=== PATIENT | male | born 1940 | race American Indian/Alaskan Native ===

== ENCOUNTER 2017-04-20 09:01 | Emergency (ER) | payer MEDICARE, OTHER ==
[~2017-04-20] VITALS: Ht 167.6 cm; Wt 90.7 kg
[~2017-04-20 09:01] MED LIST: ALBUTEROL SULF8.5 GM INH; ALLOPURINOL100 MG PO; ALLOPURINOL300 MG PO; ATENOLOL25 MG PO; ATENOLOL50 MG PO; AVODART0.5 MG PO; CALCIUM600 MG PO; CEFEPIME-D2 GM/50 ML IV; COLCHICINE0.6 M1 PO; COUMADIN2.5 MG PO; COUMADIN3 MG PO; COUMADIN4 MG PO; COUMADIN5 MG PO; COUMADIN6 MG PO; CYCLOBENZAPRINE10 MG PO; DOCUSATE SODIU100 MG PO; DOXYCYCLINE HY100 MG PO; DULCOLAX10 MG PR; FLEET ENEMA133 ML PR; FLOMAX0.4 MG PO; FUROSEMIDE20 MG PO; FUROSEMIDE40 MG PO; HYDROCODON-ACE1 EA11 PO; HYDROMORPHONE HC4 MG PO; LEVAQUIN500 MG PO; LIDODERM700 MG TOP; LOVENOX100 MG SUB-Q; LOVENOX30 MG SUB-Q; LOVENOX80 MG SUB-Q; LYRICA50 MG PO; OXYCODONE HCL5 MG PO; POTASSIUM CHLO10 ME1 PO; POTASSIUM CHLO20 ME1 PO; PROTONIX40 MG PO; TERBINAFINE15 GM TOP; TRAMADOL HCL50 MG PO; ULTRAM50 MG PO; VANCOMYCIN1.25 GM/25 IV
[2017-04-20] MEDS ORDERED: COUMADIN4 MG PO (09:21)
[2017-04-20] MEDS ORDERED: NORCO 5-325 TA1 EACH PO (11:00)
[2017-05-23] MEDS ORDERED: ATENOLOL25 MG PO (14:04)
== END 2017-04-20 11:16 | disposition home or self-care (01) ==
LOC: ED 09:01
DX: S70.01XA Contusion of right hip, initial encounter (principal); I10 Essential (primary) hypertension; Z95.2 Presence of prosthetic heart valve; Z88.2 Allergy status to sulfonamides; Z88.5 Allergy status to narcotic agent; Z88.8 Allergy status to other drugs, medicaments and biological substances; Z79.899 Other long term (current) drug therapy; Z79.01 Long term (current) use of anticoagulants; W18.30XA Fall on same level, unspecified, initial encounter
CPT/HCPCS: 73502; 99283

== ENCOUNTER 2017-05-30 08:45 | Day surgery (SDC) | payer MEDICARE, OTHER ==
[~2017-05-30] VITALS: Ht 167.6 cm; Wt 89.4 kg
[~2017-05-30 08:45] MED LIST changes: +NORCO 5-325 TA1 EACH PO
--- NOTE | 2017-05-30 11:02 | NUR ---
05/30/17 1102 [address] Colbert ORAL AIRWAY REMOVED. PATIENT TITRATED TO ROOM AIR PATIENT SITTING UP IN BED AND SIPPING WATER.
--- NOTE | 2017-05-30 14:10 | OR ---
[facility] [address], [place] [address] Signed DATE OF PROCEDURE: 05/30/17 PREOPERATIVE DIAGNOSES Personal history of colonic polyps. Diverticulosis. Internal hemorrhoids. POSTOPERATIVE DIAGNOSES A 7-mm polyp at 10 cm. A 5-mm polyp at 8 cm. Moderate sigmoid diverticulosis. Moderate internal hemorrhoids. PROCEDURE: Colonoscopy with hot biopsy. ESTIMATED BLOOD LOSS: None. INDICATIONS Jewel is a 76-year-old gentleman, who came in February 2012 for personal history of colonic polyps. He said that was more than 10 years ago. In 2011, we removed an adenomatous polyp from his mi d right colon. He also has minimal sigmoid diverticulosis along with internal hemorrhoids. In the meantime, he says he is doing great. He has no lower GI complaints. He did get the right knee replaced. He has been using his front wheeled walker. 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 He told me there is no family history of colon cancer or polyps. I met with Jewel in the office and after long discussion, we decided we would go ahead with another colonoscopy. Hopefully, this will be his last one. I gave him a pamphlet on colonoscopy and we discussed the nature of the test along with the risks including but not limited to gas bloating, crampy abdominal pain, bleeding, perforation requiring surgery, and missed diagnosis. We also discussed the need for IV conscious sedation. Given his significant medical history, particularly his heart, we asked that an anesthesia provider help us on this occasion as we did previously. He had expressed understanding and wished to proceed. PROCEDURE NOTE Jewel was taken into our endoscopy suite and placed in the left lateral decubitus position. He was given a preoperative antibiotic. He stopped his Coumadin 4 days ago. He was then placed under IV anesthetic with Propofol per nurse selector packer. A digital rectal exam was performed a nd he does have some induration and swelling to the prostate consistent with his age. After this, the adult colonoscope was introduced and advanced all around into the cecum under direct visualization camera without difficulty. His prep was good. The scope was then slowly withdrawn. We did see has diverticula. They are moderate in size and minimal to moderate in number and scattered about. Once in the Electronically Signed By: QING HUMPHRIES MD 05/30/17 1248 Electronically Signed By: QING HUMPHRIES MD 05/30/17 1424 PATIENT NAME: JEWEL ASHRAF OPERATIVE REPORT DATE OF : 38 PHYSICIAN: QING HUMPHRIES MD REPORT #: [id number] REPORT IS CONFIDENTIAL AND NOT TO BE RELEASED WITHOUT AUTHORIZATION [facility] [address] [place], [place] [address] Signed rectum, he did have 2 small polyps which were removed with the help of hot biopsy forceps. Upon retroflexion of scope, we can also see the minimal to moderate internal hemorrhoid columns. After this, the gas was suctioned out and the colonoscope removed. Jewel tolerated the procedure quite well. RECOMMENDATIONS I will see Jewel back in my office in 7-14 days to review his results. He will hold his Coumadin for 1 week. MD NAY Garcia/Vinh /[id number] cc: Roge Emery MD Electronically Signed By: QING HUMPHRIES MD 05/30/17 1248 Electronically Signed By: QING HUMPHRIES MD 05/30/17 1424 PATIENT NAME: JEWEL ASHRAF OPERATIVE REPORT DATE OF : 38 PHYSICIAN: QING HUMPHRIES MD REPORT #: [id number] REPORT IS CONFIDENTIAL AND NOT TO BE RELEASED WITHOUT AUTHORIZATION
== END 2017-05-30 11:32 | disposition home or self-care (01) ==
LOC: DS 08:45 → OPS 08:45 → DS 09:45
PROVIDERS: Colon & Rectal Surgery
PROC: 0DBP8ZX Excision of Rectum, Via Natural or Artificial Opening Endoscopic, Diagnostic (ICD-10-PCS; principal; 2017-05-30 09:45)
DX: D12.8 Benign neoplasm of rectum (principal); K57.30 Diverticulosis of large intestine without perforation or abscess without bleeding; K64.8 Other hemorrhoids; I11.0 Hypertensive heart disease with heart failure; I50.9 Heart failure, unspecified; I48.91 Unspecified atrial fibrillation; J45.909 Unspecified asthma, uncomplicated; E78.5 Hyperlipidemia, unspecified; N40.0 Benign prostatic hyperplasia without lower urinary tract symptoms; M10.9 Gout, unspecified; M19.90 Unspecified osteoarthritis, unspecified site; M86.9 Osteomyelitis, unspecified; Z95.2 Presence of prosthetic heart valve; Z86.010 Personal history of colon polyps; Z96.651 Presence of right artificial knee joint; Z87.891 Personal history of nicotine dependence; Z79.01 Long term (current) use of anticoagulants; Z79.899 Other long term (current) drug therapy; Z88.5 Allergy status to narcotic agent
CPT/HCPCS: 00810; 88305; J2704; J7120

== ENCOUNTER 2017-08-21 12:22 | Emergency (ER) | payer MEDICARE, OTHER ==
[~2017-08-21] VITALS: Ht 167.6 cm; Wt 89.4 kg
--- NOTE | 2017-08-22 07:18 | EKG ---
[facility] [address] [facility] [place] [address] Signed Normal sinus rhythm Normal ECG When compared with ECG of 02-DEC-2016 08:16, T wave amplitude has increased in Anterior leads Confirmed by NELLIE LICONA MD ([id number]) on 08/22/2017 7:17:50 AM Electronically Signed By: NELLIE LICONA MD 08/22/17 0718 PATIENT NAME: JEWEL ASHRAF Electrocardiogram DATE OF : 38 PHYSICIAN: NELLIE LICONA MD REPORT #: [id number] REPORT IS CONFIDENTIAL AND NOT TO BE RELEASED WITHOUT AUTHORIZATION
== END 2017-08-21 15:20 | disposition home or self-care (01) ==
LOC: ED 12:22
DX: R07.89 Other chest pain (principal); R06.02 Shortness of breath; I10 Essential (primary) hypertension; Z95.2 Presence of prosthetic heart valve; Z88.5 Allergy status to narcotic agent; Z88.2 Allergy status to sulfonamides; Z88.8 Allergy status to other drugs, medicaments and biological substances; Z79.899 Other long term (current) drug therapy; Z79.01 Long term (current) use of anticoagulants
CPT/HCPCS: 71010; 80053; 84484; 85025; 85610; 85730; 93005; 93010; 99284

== ENCOUNTER 2018-04-25 14:06 | Inpatient (IN) | payer MEDICARE, OTHER ==
[~2018-04-25] VITALS: Ht 167.6 cm; Wt 89.4 kg
[2018-04-25] MEDS ORDERED: METOPROLOL SUCC50 MG PO (17:10)
[2018-04-25] MEDS ORDERED: ENTRESTO 24 MG1 EACH PO (17:10)
[2018-04-25] MEDS ORDERED: CYCLOBENZAPRINE10 MG PO (17:12)
--- NOTE | 2018-04-25 19:22 | NUR ---
PATIENT HAD DARK COLORED URINE. RN NOTIFIED.
--- NOTE | 2018-04-25 19:45 | NUR ---
PT BEGAN TO BECOME INCREASINGLY TACHYPNIC FOLLOWING ARRIVAL ON UNIT. PT ON 4 L NASAL CANNULA, INCREASED TO 30L 50%FIO2 ON VAPOTHERM. PT INCREASING HEMOPTYSIS. MD INFORMED OF CHANGE IN PT STATUS. MD ARRIVED ON UNIT 3 MINUTES AFTER PHONE CALL. PT WITH INCREASING SHORTNESS OF BREATH, INCREASING TACHYPNEA, INCREASING HEMOPTYSIS. PT REPORTED FEELING UNABLE TO BREATHE. MD DISCUSSED INTUBATION WITH FAMILY AND PT, PT IN AGREEMENT. PT PLACED ON BIPAP FIO2 50%. PT INCREASING SHORTNESS OF BREATH. HOSPITAL [facility]SILE TESTER NOTIFIED OF MD PLAN OF INTUBATION AND TRANSFER. DR TONG AND DR WILKINS ON THE UNIT AT THIS TIME.
--- NOTE | 2018-04-25 21:06 | NUR ---
RECEIVED REPORT FROM DAY SHIFT RN REGARDING PATIENT'S DECLINE IN RESPIRATORY STATUS WITH PATIENT'S INCREASED WORK OF BREATHING DESPITE BIPAP THERAPY AND ELEVATED HEART RATE. AT 1933, DR. WILKINS AND SOCIAL SCIENTIST CARLA ASHRAF IN ROOM TO ASSESS PATIENT AND UPDATE FAMILY ABOUT PLAN OF CARE FOR TRANSFER TO [facility]. 1944 ETT PLACED 8 1/2 TUBE, 21 CM AT THE LIP, BREATH SOUNDS EQUAL BILATERALLY. 2011 XRAY TO ROOM TO COMFIRM TUBE PLACEMENT. HE CATHETER PLACED AT [address] WILKINS, ASSISTED BY THIS RN TO MAINTAIN STERILE FIELD. 2002 [facility] NOTIFIED OF NEED TO TRANSFER PATIENT. 2044 [facility] IN ROOM TO TRANSFER PATIENT, PATIENT SWITCHED TO [facility] VENTILATOR AND IV PUMPS. 2054 PATIENT LEAVES FACILITY WITH [facility] TEAM AND RN FROM CCU. 2110 REPORT CALLED TO NURSE TAKING OVER PATIENT AT [facility].
--- NOTE | 2018-04-27 14:37 | EKG ---
[facility] [address] [facility] [place] [address] Signed Atrial fibrillation with rapid ventricular response Nonspecific ST and T wave abnormality Abnormal ECG When compared with ECG of 21-AUG-2017 12:28, Atrial fibrillation has replaced Sinus rhythm Vent. rate has increased BY 51 BPM Confirmed by CHARLA MOTT DO ([id number]) on 04/27/2018 2:37:18 PM Electronically Signed By: CHARLA MOTT DO 04/27/18 1437 PATIENT NAME: JEWEL ASHRAF Electrocardiogram DATE OF : 38 PHYSICIAN: CHARLA MOTT DO REPORT #: [id number] REPORT IS CONFIDENTIAL AND NOT TO BE RELEASED WITHOUT AUTHORIZATION
== END 2018-04-25 20:50 | disposition short-term general hospital (02) | DRG 871 ==
LOC: ED 14:06 → CCU 16:31
PROVIDERS: ADMIT Student in an Organized Health Care Education/Training Program
PROC: 0BH17EZ Insertion of Endotracheal Airway into Trachea, Via Natural or Artificial Opening (ICD-10-PCS; principal; 2018-04-25)
PROC: 5A1935Z Respiratory Ventilation, Less than 24 Consecutive Hours (ICD-10-PCS; 2018-04-25)
PROC: 3E033XZ Introduction of Vasopressor into Peripheral Vein, Percutaneous Approach (ICD-10-PCS; 2018-04-25)
PROC: 5A09357 Assistance with Respiratory Ventilation, Less than 24 Consecutive Hours, Continuous Positive Airway Pressure (ICD-10-PCS; 2018-04-25)
DX: A41.9 Sepsis, unspecified organism (principal); J18.9 Pneumonia, unspecified organism; J96.91 Respiratory failure, unspecified with hypoxia; G93.41 Metabolic encephalopathy; R04.2 Hemoptysis; I50.22 Chronic systolic (congestive) heart failure; N40.0 Benign prostatic hyperplasia without lower urinary tract symptoms; I48.0 Paroxysmal atrial fibrillation; M54.9 Dorsalgia, unspecified; G89.4 Chronic pain syndrome; Z95.2 Presence of prosthetic heart valve; Z79.01 Long term (current) use of anticoagulants; Z79.891 Long term (current) use of opiate analgesic; Z79.899 Other long term (current) drug therapy; Z88.3 Allergy status to other anti-infective agents; Z88.5 Allergy status to narcotic agent; Z88.2 Allergy status to sulfonamides; Z88.8 Allergy status to other drugs, medicaments and biological substances
CPT/HCPCS: 31500; 31720; 36415; 36600; 51701; 71045; 71260; 80053; 81001; 82803; 83605; 83880; 84484; 85025; 85610; 86713; 87040; 87077; 87184; 87449; 87899; 93005; 93010; 94002; 94660; 94668; 94799; 96361; 96365; 96375; 99285; J0456; J0696; J2250; J2370; J7030; Q9967

== ENCOUNTER 2018-12-20 12:39 | Emergency (ER) | payer MEDICARE ==
[~2018-12-20] VITALS: Ht 167.6 cm; Wt 89.4 kg
--- OUTSIDE RECORDS SUMMARY | ~2018-12-20 | XMS | Clinical Summary ---
Demographics + + + | Address | [address] | | | [place] [address] | + + + | Home Phone | | + + + | Preferred Language | Unknown | + + + | Marital Status | | + + + | Christianity Affiliation | 1025 | + + + | Race | Unknown | + + + | Ethnic Group | Unknown | + + + Author + + + | Author | [facility] | | | and [place] | + + + | Organization | [facility] | | | and [place] | + + + | Address | Unknown | + + + | Phone | Unavailable | + + + Support + + +---------+ + | Name | Relationship | Address | Phone | + + +---------+ + | Brown,Supriya | ECON | Unknown | | + + +---------+ + | Leonor Lara | ECON | Unknown | | + + +---------+ + | Laurel Lara | ECON | Unknown | | + + +---------+ + Care Team Providers + +------+ + | Care Roller Staker Name | Role | Phone | + +------+ + | Roge Emery DO | PP | | + +------+ + Allergies + + + + + + | Active Allergy | Reactions | Severity | Noted | Comments | | | | | Date | | + + + + + + | Acetaminophen | Nausea Only | | 04/24/20 | | | | | | 13 | | + + + + + + | Codeine | Other (See Comments) | | 05/16/20 | Reaction not | | | | | 17 | specified in outside | | | | | | medical records | + + + + + + | Hydrocodone | Other (See Comments) | | 05/16/20 | Dyspnea | | | | | 17 | | + + + + + + | Ibuprofen | Hives | | 04/24/20 | | | | | | 13 | | + + + + + + | Oxycodone | Other (See Comments) | | 04/24/20 | Reaction not | | | | | 13 | specified in outside | | | | | | medical records | + + + + + + | Prednisone | Other (See Comments) | | 04/24/20 | Reaction not | | | | | 13 | specified in outside | | | | | | medical records | + + + + + + | Quinine | Rash | Medium | 04/25/20 | | | | | | 10 | | + + + + + + | Sulfa Antibiotics | Other (See Comments) | | 04/24/20 | Confusion | | | | | 13 | | + + + + + + | Trimethoprim | Other (See Comments) | | 05/16/20 | Reaction not | | | | | 17 | specified in outside | | | | | | medical records | + + + + + + Current Medications + + +-------+---------+------+------+-------+ | Prescription | Sig. | Disp. | Refills | Star | End | Statu | | | | | | t | Date | s | | | | | | Date | | | + + +-------+---------+------+------+-------+ | cyclobenzaprine | Take 10 mg by mouth | | | | | Activ | | (FLEXERIL) 10 mg | nightly. | | | | | e | | tablet | | | | | | | + + +-------+---------+------+------+-------+ | docusate sodium | Take 100 mg by mouth | | | | | Activ | | (COLACE) 100 mg | 2 times daily. | | | | | e | | capsule | | | | | | | + + +-------+---------+------+------+-------+ | furosemide (LASIX) | Take 40 mg by mouth | | | | | Activ | | 40 mg tablet | Daily. | | | | | e | + + +-------+---------+------+------+-------+ | potassium chloride | Take 20 mEq by mouth | | | | | Activ | | SA (K-DUR,KLOR-CON) | 2 times daily. | | | | | e | | 10 MEQ tablet | | | | | | | + + +-------+---------+------+------+-------+ | pregabalin | Take 50 mg by mouth | | | | | Activ | | (LYRICA) 50 MG | 2 times daily. | | | | | e | | capsule | | | | | | | + + +-------+---------+------+------+-------+ | atenolol | Take 50 mg by mouth | | | / | | Activ | | (TENORMIN) 50 mg | every morning. | | | 02/03 | | e | | tablet | | | | 15 | | | + + +-------+---------+------+------+-------+ | atenolol | Take 25 mg by mouth | | | | | Activ | | (TENORMIN) 25 mg | nightly. | | | | | e | | tablet | | | | | | | + + +-------+---------+------+------+-------+ | allopurinol | Take 200 mg by mouth | | | | | Activ | | (ZYLOPRIM) 100 mg | Daily. | | | | | e | | tablet | | | | | | | + + +-------+---------+------+------+-------+ | warfarin | Take 4.5 mg by mouth | | | | | Activ | | (COUMADIN) 2.5 mg | Daily. Patient | | | | | e | | tablet | states taking approx | | | | | | | | 2 tablets evening | | | | | | + + +-------+---------+------+------+-------+ | traMADol (ULTRAM) | Take 50 mg by mouth | | | | | Activ | | 50 mg tablet | every 6 hours as | | | | | e | | | needed. | | | | | | + + +-------+---------+------+------+-------+ | dutasteride | Take 1 mg by mouth | | | | | Activ | | (AVODART) 0.5 mg | Daily. 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/2011 | + + + | KNEE PAIN | 05/29/2011 | + + + | GOUT | | + + + | HERPES ZOSTER | | + + + | GREATER TROCHANTERIC BURSITIS | | + + + | SPINAL STENOSIS | | + + + | MITRAL VALVE DISORDER | | + + + Family History + + +------+ + | Medical History | Relation | Name | Comments | + + +------+ + | No known problems | Child | | | + + +------+ + | Diabetes | Daughter | | | + + +------+ + | High cholesterol | Daughter | | | + + +------+ + | Early | Father | | MVA | + + +------+ + | No known problems | Maternal | | | | | Grandfath | | | | | er | | | + + +------+ + | No known problems | Maternal | | | | | Grandmoth | | | | | er | | | + + +------+ + | Arthritis | Mother | | | + + +------+ + | No known problems | Paternal | | | | | Grandfath | | | | | er | | | + + +------+ + | No known problems | Paternal | | | | | Grandmoth | | | | | er | | | + + +------+ + | Arthritis | Sister | | | + + +------+ + | Diabetes | Son | | | + + +------+ + | High cholesterol | Son | | | + + +------+ + + +------+ + + | Relation | Name | Status | Comments | + +------+ + + | Child | | | | + +------+ + + | Daughter | | Alive | | + +------+ + + | Father | | | MVA | | | | (Age | | | | | 52) | | + +------+ + + | Maternal Grandfather | | | | + +------+ + + | Maternal Grandmother | | | | + +------+ + + | Mother | | | | | | | (Age | | | | | 102) | | + +------+ + + | Paternal Grandfather | | | | + +------+ + + | Paternal Grandmother | | | | + +------+ + + | Sister | | | Arthritis | | | | (Age | | | | | 48) | | + +------+ + + | Son | | Alive | | + +------+ + + Social History + + + +--------+ + | Tobacco Use | Types | Packs/Day | Years | Date | | | | | Used | | + + + +--------+ + | Former Smoker | Cigarettes | 1 | 10 | 09/17/1957 - | | | | | | 09/17/1967 | + + + +--------+ + + +---+---+---+ | Smokeless Tobacco: | | | | | Never Used | | | | + +---+---+---+ + + +---------+ + | Alcohol Use | Drinks/We | oz/Week | Comments | | | ek | | | + + +---------+ + | No | | | Recovering alcoholic | + + +---------+ + + + + | Sex Assigned at | Date Recorded | | | | + + + | Not on file | | + + + Last Filed Vital Signs + + + + | Vital Sign | Reading | Time Taken | + + + + | Blood Pressure | 132/86 | 05/24/2017801 PDT | + + + + | Pulse | 75 | 05/24/2017801 PDT | + + + + | Temperature | - | - | + + + + | Respiratory Rate | - | - | + + + + | Oxygen Saturation | - | - | + + + + | Inhaled Oxygen | - | - | | Concentration | | | + + + + | Weight | 90.6 kg (199 lb 12.8 | 05/24/2017801 PDT | | | oz) | | + + + + | Height | 167.6 cm (5' 6") | 05/24/2017801 PDT | + + + + | Body Mass Index | 32.25 | 05/24/2017801 PDT | + + + + Plan of Treatment + + + + + | Health Maintenance | Due Date | Last Done | Comments | + + + + + | Vaccine: | | | | | Dtap/Tdap/Td (1 - | 9 | | | | Tdap) | | | | + + + + + | Vaccine: Zoster (1 | | | | | of 2) | 0 | | | + + + + + | Vaccine: | | | | | Pneumococcal 65+ | 5 | | | | Low/Medium Risk (1 | | | | | of 2 - PCV13) | | | | + + + + + | Adult Annual | | | | | Wellness Visit | 5 | | | + + + + + | Vaccine: Influenza | | | | | (Season Ended) | 9 | | | + + + + + Results Not on filefrom Last 3 Months Insurance + +--------+ +--------+ +---------+ | Payer | Benefi | Subscriber | Type | Phone | Address | | | t Plan | ID | | | | | | / | | | | | | | Group | | | | | + +--------+ +--------+ +---------+ | MEDICARE | MEDICA | [id number] | Medica | [phone] | | | RE | | re | [phone] | | | | PART A | | | | | | | AND B | | | | | + +--------+ +--------+ +---------+ | [facility] | IHS | [id number] | Indemn | | | | SERVICE | YELLOW | | ity | | | | | [place] | | | | | + +--------+ +--------+ +---------+ + +--------+ +--------+ + + | Guarantor Name | Accoun | Relation to | Date | Phone | Billing Address | | | t Type | Patient | of | | | | | | | | | | + +--------+ +--------+ + + | JEWEL LARA | Person | Self [birth year] Home: | [address] | | | [place] | | [phone] | [phone] | [place] | | | [place] | | | [phone] | [phone] | + +--------+ +--------+ + +
--- OUTSIDE RECORDS SUMMARY | ~2018-12-20 | XMS | Encounter Summary ---
Demographics + + + | Address | [address] | | | [place] [address] | + + + | Home Phone | | + + + | Preferred Language | Unknown | + + + | Marital Status | | + + + | Taoist Affiliation | [id number] | + + + | Race | Unknown | + + + | Ethnic Group | Unknown | + + + Author + + + | Author | [facility] | + + + | Organization | [facility] | + + + | Address | Unknown | + + + | Phone | Unavailable | + + + Support + + +---------+ + | Name | Relationship | Address | Phone | + + +---------+ + | Leonor Lara | ECON | Unknown | | + + +---------+ + | Laurel Lara | ECON | Unknown | | + + +---------+ + | Luigi Cardona | ECON | Unknown | | + + +---------+ + Care Team Providers + +------+ + | Care Administrative Judge Name | Role | Phone | + +------+ + | Roge Emery MD | PCP | | + +------+ + Reason for Visit + + + | Reason | Comments | + + + | Follow-up | risk assessment | + + + Routine Exam (Urgent) +--------+--------+ + + + + | Status | Reason | Specialty | Diagnoses / | Referred By | Referred To | | | | | Procedures | Contact | Contact | +--------+--------+ + + + + | Closed | | Cardiology | Diagnoses | [place], | Tina, | | | | | surgical | MD Roge | MD Maryam | | | | | clearance | [id number] | [address] | | | | | hernia | [place] | Dr Leyva | | | | | repair | Way | [place] MD | | | | | Procedures | [place], | [address] Phone: | | | | | Routine | [place] [address] | [phone] | | | | | | Phone: | Fax: | | | | | | [phone] | [phone] | | | | | | Fax: | | | | | | | [phone] | | +--------+--------+ + + + + Encounter Details +--------+---------+ + + + | Date | Type | Department | Care Team | Description | +--------+---------+ + + + | 10/23/ | Office | [facility] | Maryam Caal, | S/P MVR (mitral | | 2019 | Visit | Cardiology [place] | [address] | valve repair) | | | | [address] | Dr Hendrickson, | (Primary Dx); | | | | [address] | [place] [address] | Non-ischemic | | | | [place] [address] | [phone] | cardiomyopathy | | | | [phone] | | (HCC); Incarcerated | | | | | | right inguinal | | | | | | hernia; nursing home | | | | | | (current) use of | | | | | | anticoagulants; | | | | | | Persistent atrial | | | | | | fibrillation ([facility]) | +--------+---------+ + + + Social History + + + +--------+ + | Tobacco Use | Types | Packs/Day | Years | Date | | | | | Used | | + + + +--------+ + | Former Smoker | Cigarettes | | 5 | Quit: 09/17/1962 | + + + +--------+ + + +---+---+---+ | Smokeless Tobacco: | | | | | Never Used | | | | + +---+---+---+ + + +---------+ + | Alcohol Use | Drinks/We | oz/Week | Comments | | | ek | | | + + +---------+ + | No | 0 | 0.0 | | | | Standard | | | | | drinks or | | | | | | | | | | equivalen | | | | | t | | | + + +---------+ + + + + | Sex Assigned at | Date Recorded | | | | + + + | Not on file | | + + + as of this encounter Last Filed Vital Signs + + + + | Vital Sign | Reading | Time Taken | + + + + | Blood Pressure | 136/74 | 10/23/2018 11:57 AM PST | + + + + | Pulse | 80 | 10/23/2018 11:57 AM PST | + + + + | Temperature | - | - | + + + + | Respiratory Rate | - | - | + + + + | Oxygen Saturation | 97% | 10/23/2018 11:57 AM PST | + + + + | Inhaled Oxygen | - | - | | Concentration | | | + + + + | Weight | 85 kg (187 lb 8 oz) | 10/23/2018 11:57 AM PST | + + + + | Height | 172.7 cm (5' 8") | 10/23/2018 11:57 AM PST | + + + + | Body Mass Index | 28.51 | 10/23/2018 11:57 AM PST | + + + + in this encounter Progress Notes Maryam Caal MD - 10/23/2018 11:45 AM PSTFormatting of this note may be different fro m the original. Date of visit: 10/23/2018 Primary Care Physician: ROGE EMERY CHIEF COMPLAINT: Chief Complaint Patient presents with Follow-up risk assessment HISTORY OF PRESENT ILLNESS: Juvenal is 78 y.o. here for follow-up visit. Was hospitalized in April of 2018 due to septic shock due bacterial pneumonia. Currently back to his baseline, denies any chest pain or shortness of breath. Weight is sta ble. Continues to be on Carvedilol and Sacubitril/Valsartan 24/26 mg bid. Was diagnosed with incarcerated right inguinal hernia and has been in pain. 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 Left heart catheterization showed no epicardial obstructive coronary lesions in December 2017. Overall limited activity level due to right knee replacement. Continues to have chronic kne e pain. He is using a walker to ambulate at this time. Still complains of pain and swelling in the right knee. Complaint with his medication. Past medical history, SH, FH, and medications were reviewed in the chart. Medications: Outpatient Encounter Prescriptions as of 10/23/2018 Medication Sig Dispense Refill allopurinol (ZYLOPRIM) 100 MG tablet Take 200 mg by mouth daily. carvedilol (COREG) 6.25 MG tablet Take 1 tablet by mouth 2 (two) times daily with meals . 60 tablet 0 docusate sodium (COLACE) 100 MG capsule Take 100 mg by mouth 2 (two) times daily. dutasteride (AVODART) 0.5 MG capsule Take 0.5 mg by mouth 2 (two) times daily. furosemide (LASIX) 40 MG tablet Take 40 mg by mouth daily. melatonin 3 MG TABS Take 6 mg by mouth nightly. Multiple Vitamins-Minerals (MULTIVITAMIN ADULTS PO) Take 1 tablet by mouth daily. potassium chloride (K-DUR,KLOR-CON) 20 MEQ tablet Take 2 tablets by mouth daily with br eakfast. 60 tablet 0 pregabalin (LYRICA) 50 MG capsule Take 1 capsule by mouth 2 (two) times daily for 30 da ys. 60 capsule 0 sacubitril-valsartan (ENTRESTO) 24-26 MG per tablet Take 1 tablet by mouth 2 (two) time s daily. 60 tablet 2 traMADol (ULTRAM) 50 MG tablet Take 1 tablet by mouth every 6 (six) hours as needed for Pain. 30 tablet 0 warfarin (COUMADIN) 4 MG tablet Take 8 mg by mouth nightly. QUEtiapine (SEROQUEL) 50 MG tablet Take 1 tablet by mouth nightly for 30 days. (Patient not taking: Reported on 10/23/2018) 14 tablet 0 No facility-administered encounter medications on file as of 10/23/2018. Allergies Allergies Allergen Reactions Ibuprofen Hives Quinine Hives Trimethoprim Hives Codeine Nausea and Vomiting Hydrocodone Other (See Comments) Dyspnea Oxycodone Other (See Comments) Nausea,vomiting, dizziness Prednisone Nausea and Vomiting Sulfa Antibiotics Other (See Comments) Confusion Acetaminophen Nausea Only REVIEW OF SYSTEMS: Constitutional: Mild fatigue. HEENT: Negative for nosebleeds, ear discharge, nasal congestion or soar throat. Eyes: Negative for visual disturbance, redness, or secretion. Respiratory: Negative for cough, sputum production, hemoptysis, positive for wheezing. Cardiovascular: As history of present illness. Gastrointestinal: Negative for nausea, vomiting, diarrhea, abdominal pain and blood in stoo l. Genitourinary: right inguinal hernia. Negative for dysuria or hematuria. Musculoskeletal: Severe right knee pain. Uses a walker to ambulate. Skin: Negative for rash. Neurological: Negative for dizziness. No numbness. No recent falls. No slurred speech. Hematological: No significant bruising. Psychiatric/Behavioral: No depression or anxiety. PHYSICAL EXAM Vital Signs: BP 136/74 (BP Location: Left upper arm, Patient Position: Sitting) | Pulse 80 | Ht 1.727 m (5' 8") | Wt 85 kg (187 lb 8 oz) | SpO2 97% | BMI 28.51 kg/m GENERAL APPEARANCE: Alert, oriented, cooperative, no distress, appears stated age. HEENT: Extraocular movements were intact. No jaundice. Pupiles round and reactive. NECK: No JVD, lymphadenopathy. Carotid upstrokes normal. No carotid bruit heard. CARDIAC: Irregular irregular with variable S1-S2. CHEST: Normal bilateral symmetrical chest excursion.ackles or wheezing. No evidence of dull ness. ABDOMEN: right inguinal hernia. Active bowel sounds. EXTREMITIES: Trace LE edema, cyanosis or clubbing. NEURO: Alert and oriented times three with no focal deficit. Cranial nerves are grossly no rmal. SKIN: Warm and dry. No rash. Psych: Normal affect and mood. DATA Lab Results Component Value Date/Time NA 145 05/09/2018 05:07 AM NA 149 (H) 05/08/2018 06:02 AM NA 150 (H) 05/07/2018 03:50 AM K 3.3 (L) 05/09/2018 05:07 AM K 3.4 (L) 05/08/2018 06:02 AM K 4.0 05/07/2018 03:50 AM CO2 27 05/09/2018 05:07 AM CO2 29 05/08/2018 06:02 AM CO2 30 05/07/2018 03:50 AM BUN 36 (H) 05/09/2018 05:07 AM BUN 42 (H) 05/08/2018 06:02 AM BUN 48 (H) 05/07/2018 03:50 AM CREATININE 1.1 05/09/2018 05:07 AM CREATININE 1.1 05/08/2018 06:02 AM CREATININE 1.4 (H) 05/07/2018 03:50 AM MG 2.3 05/08/2018 06:02 AM MG 2.3 05/07/2018 03:50 AM MG 2.4 05/06/2018 08:55 PM Lab Results Component Value Date/Time WBC 8.92 05/08/2018 06:02 AM WBC 11.64 (H) 05/07/2018 03:50 AM WBC 16.54 (H) 05/06/2018 04:23 AM HGB 13.6 05/08/2018 06:02 AM HGB 13.8 05/07/2018 03:50 AM HGB 14.3 05/06/2018 04:23 AM HCT 40.7 05/08/2018 06:02 AM HCT 41.9 05/07/2018 03:50 AM HCT 44.0 05/06/2018 04:23 AM MCV 97.4 05/08/2018 06:02 AM MCV 98.0 05/07/2018 03:50 AM MCV 98.1 05/06/2018 04:23 AM PLT 208 05/08/2018 06:02 AM PLT 198 05/07/2018 03:50 AM PLT 194 05/06/2018 04:23 AM Lab Results Component Value Date CHOL 152 05/13/2013 TRIG 136 05/13/2013 HDL 46.1 05/13/2013 LDL 79 05/13/2013 GLUF 88 05/09/2018 GLUF 105 (H) 05/08/2018 HGBA1C 6.4 (H) 05/02/2018 TSH 3.14 05/13/2013 Last Cath, 12/20/2017 1. Non ischemic cardiomyopathy. 2. No significant coronary artery disease. 3. Slow flow phenomenon in the 3 coronaries. 4. Right subclavian artery loop. 03/01/2006: No significant CAD, severe MR, mild Pulmonary HTN. CABG 2005: MVR. Hx endocarditis (2003), MVR (27mm porcine Moran II ) 2005, Last Echo, 04/29/2018 Reported with severely impaired systolic function, EF 25-30%. Bioprosthetic mitral valve. Moderately dilated RV with moderately impaired systolic function. Mild TR with severe pulmonary hypertension RVSP 66 mmHg. 11/15/2017 Normal LV size, with thickness and moderately impaired systolic function EF 35-40%. Hypokin esis of the anterior septal and inferior segments. RV is moderately enlarged with moderately bit function. Bioprosthetic mitral valve with acc eptable mean gradient of 6. Tricuspid regurgitation with mild pulmonary hypertension RVSP 48 mmHg. 02/09/2015 ([facility]): MVR, stable, 10mmHg mean gradient, trace MR, LVEF 60%, severe LAE, moderate BOB, RV enlarge d, moderate BOB, trace AI, moderate TR, moderate PI, est systolic PAP 48-53mmHg, mild Pulmon juan HTN. Last Stess Test, 03/08/2011: 3:48min Pal, no chest pain, no ischemia detected, occ PVC's noted. ECG, 05/06/2018 Reviewed by myself showed atrial fibrillation with rapid ventricular response. ASSESSMENT: Patient is 78 y.o. with the following medical problems. 1. Nonischemic cardiomyopathy. NYH class II-III, stage C. 2. 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 No signs of congestive heart failure. 3. Hypertension blood pressure is controlled. 4. Incarcerated inguinal hernia. 5. Persistent atrial fibrillation, in atrial fibrillation today, CHADSVASc score of 5 on an ticoagulation. 6. History of TIA in the past. 7. Status post right knee replacement and fall on the same knee. 8. Obesity. Plan: Reviewed hospital records. Currently no signs of congestive heart failure. In atrial fibrillation however rate is cont rolled. Will continue with anticoagulation. Needs antibiotics prophylaxis prior to surgery due to history of endocarditis and mitral va lve replacement. Continue with carvedilol 6.25 mg bid. Increase Sacubitril/Valsartan to 49/51 mg bid. Patient is scheduled for moderate risk inguinal hernia surgery, patient risk is moderate ho wever not prohibitive. Warfarin can be held for 5 days prior to surgery and restart the day after. Follow up in 3 months or sooner if needed. *This report has been prepared using a voice recognition system. The report was reviewed fo r accuracy, however, sound-alike word errors, addition and/or deletions may occur. If there is any question about this report please contact me. Maryam Caal MD, MPHin this encounter Plan of Treatment +--------+---------+ + + + | Date | Type | Specialty | Care Team | Description | +--------+---------+ + + + | 01/22/ | Office | Cardiology | Maryam Caal, | | | 2018 | Visit | | MD Jolanta Contreras | | | | | | Dr Hendrickson, | | | | | | [place] [address] | | | | | | [phone] | | | | | | | | +--------+---------+ + + + as of this encounter Results ECHO outside interpretation standard (12/10/2018 4:34 PM) + + + | Impressions | Performed At | + + + | 1. The left ventricle is normal in size, wall thicknesss and | [facility] | | moderately impaired systolic function EF 35-40%. 2. The right | RADIOLOGY | | ventricle is severely enlarged with moderately impaired systolic | | | function. 3. Bioprosthetic MVR is well seated, elevated mean gradient | | | of 8 mmHg. 4. Moderate tricuspid regurgitation and mild pulmnary | | | hypertension RVSP 48 mmHg. 5. There is no pericardial effusion. | | + + + + + + | Narrative | Performed At | + + + | Patient Name: Juvenal Lara Date of : 1940 | [facility] | | Performing Physician: Maryam Caal | RADIOLOGY | | | | | INDICATIONS Hx of MVR CONCLUSIONS 1. | | | The left ventricle is normal in size, wall thicknesss and moderately | | | impaired systolic function EF 35-40%. 2. The right ventricle is | | | severely enlarged with moderately impaired systolic function. 3. | | | Bioprosthetic MVR is well seated, elevated mean gradient of 8 mmHg. | | | 4. Moderate tricuspid regurgitation and mild pulmnary hypertension | | | RVSP 48 mmHg. 5. There is no pericardial effusion. FINDINGS | | | -------- ECG rhythm: Atrial fibrillation. Study: A 2-dimensional | | | transthoracic echocardiogram with m-mode, spectral and color flow | | | Doppler was perfomed. Study: This was a technically adequate study. | | | Left Ventricle: Overall left ventricular systolic function is | | | moderately impaired with, an EF between 35 - 40 %. Left Ventricle: | | | The left ventricle cavity size is normal. Left Ventricle: Left | | | ventricular wall thickness is normal. Left Ventricle: There is | | | moderate global hypokinesis of LV contractility. Left Ventricle: | | | There is paradoxical/dysynergic septal motion consistent with | | | post-operative status. Right Ventricle: The right ventricle is | | | severely enlarged. Right Ventricle: The right ventricular systolic | | | function is moderately impaired. Left Atrium: The left atrium is | | | markedly enlarged. Right Atrium: The right atrium is moderately | | | enlarged. Aortic Valve: The aortic valve appears to be trileaflet. | | | Aortic Valve: Trace amount of aortic regurgitation. Aortic Valve: | | | There is no evidence of aortic stenosis. Aortic Valve: Aortic valve | | | is mildly thickened. Mitral Valve: There is trace mitral | | | regurgitation. Mitral Valve: Bioprosthetic MVR is well seated. | | | Tricuspid Valve: The tricuspid valve appears structurally normal. | | | Tricuspid Valve: Moderate tricuspid regurgitation present. Tricuspid | | | Valve: There is moderate pulmonary hypertension. Tricuspid Valve: | | | The right ventricular systolic pressure (pulmonary artery systolic | | | pressure), as measured by Doppler, is 48.36mmHg. Pulmonic Valve: The | | | pulmonic valve was not well visualized. Pulmonic Valve: Moderate | | | pulmonic regurgitation. Pericardium: There is no pericardial | | | effusion. Pericardium: No pleural effusion seen. IVC/Hepatic Veins: | | | The IVC is normal size (1.5-2.5cm) and collapses <50% with sniff, | | | consistent with central venous pressures of 10-15mmHg. Aorta: The | | | aortic root, ascending aorta and aortic arch are normal. | | | MEASUREMENTS Ao asc: 3.35 cm Ao Diam: 3.56 cm | | | Ao sinus: 3.[address] junct: 3.53 cm IVC: 2.49 cm | | | LA Major: 7.09 cm EDV(Teich): 90.36 ml IVSd: 1.12 cm | | | LVIDd: 4.45 cm LVPWd: 0.84 cm LVOT Diam: 2.52 cm | | | %FS: 18.14 % EF(Teich): 37.83 % ESV(Teich): 56.17 ml | | | LVIDs: 3.64 cm SV(Teich): 34.18 ml RA Major: 6.00 cm RV | | | Major: 8.13 cm RV Minor: 5.00 cm RVIDd: 4.30 cm LVEF | | | MOD A2C: 38.30 % SV MOD A2C: 30.35 ml LVEF MOD A4C: | | | 44.62 % SV MOD A4C: 35.03 ml EF Biplane: 39.48 % LVEDV MOD | | | BP: 78.11 ml LVESV MOD BP: 47.27 ml LVEDV MOD A2C: 79.24 | | | ml LVLd A2C: 7.99 cm LVEDV MOD A4C: 78.51 ml LVLd A4C: | | | 8.03 cm LVESV MOD A2C: 48.89 ml LVLs A2C: 7.45 cm LVESV | | | MOD A4C: 43.47 ml LVLs A4C: 7.06 cm LAESV(A-L): 150.73 | | | ml LAESV Index (A-L): 77.69 ml/m2 LAAs A2C: 34.70 cm2 LAESV | | | A-L A2C: 141.98 ml LAESV MOD A2C: 138.71 ml LALs A2C: | | | 7.20 cm LAAs A4C: 36.56 cm2 LAESV A-L A4C: 158.79 ml LAESV | | | MOD A4C: 157.49 ml LALs A4C: 7.14 cm RAAs: 25.93 cm2 | | | RAESV A-L: 88.67 ml RAESV MOD: 88.89 ml RALs: 6.43 cm | | | TAPSE: 1.34 cm AV Env.Ti: 265.67 ms AV maxP.20 mmHg | | | AV meanP.12 mmHg AV Vmax: 1.02 m/s AV Vmean: 0.67 | | | m/s AV VTI: 17.96 cm DONOVAN Vmax: 3.49 cm2 DONOVAN (VTI): 3.62 | | | cm2 AVAI Vmax: 0.00 cm2/m2 AVAI (VTI): 0.00 cm2/m2 LVOT | | | Env.Ti: 265.67 ms LVOT maxP.04 mmHg LVOT meanPG: | | | 1.12 mmHg LVSI Dopp: 33.61 ml/m2 LVSV Dopp: 65.21 ml LVOT | | | Vmax: 0.71 m/s LVOT Vmean: 0.48 m/s LVOT VTI: 13.01 cm | | | MV E Yfn: 1.71 m/s E' Lat: 0.09 m/s MV maxP.01 mmHg | | | MV meanP.01 mmHg MV Vmax: 1.73 m/s MV Vmean: 1.03 | | | m/s MV VTI: 48.36 cm MVA (VTI): 1.34 cm2 RAP: 15 mmHg | | | RV S': 0.10 m/s RVSP: 48.36 mmHg TR maxP.36 mmHg | | | TR Vmax: 2.88 m/s Fund Raiser: Authenticated by: Maryam | | | Tina Report Date/Time: 12-10-2018 18:16:43 | | + + + + + | Procedure Note | + + | Albin Beregron In - 12/10/2018 6:20 PM PDT Patient Name: Jose Lara of | | : 1940Accession: [id number] Physician: Maryam | | Tina INDICATIONS------ | | -----Hx of MVRCONCLUSIONS 1. The left ventricle is normal in size, wall | | thicknesss and moderately impaired systolic function EF 35-40%.2. The right ventricle is | | severely enlarged with moderately impaired systolic function.3. Bioprosthetic MVR is | | well seated, elevated mean gradient of 8 mmHg.4. Moderate tricuspid regurgitation and | | mild pulmnary hypertension RVSP 48 mmHg. 5. There is no pericardial | | effusion.FINDINGS--------ECG rhythm: Atrial fibrillation.Study: A 2-dimensional | | transthoracic echocardiogram with m-mode, spectral and color flow Doppler was perfomed. | | Study: This was a technically adequate study.Left Ventricle: Overall left ventricular | | systolic function is moderately impaired with, an EF between 35 - 40 %. Left Ventricle: | | The left ventricle cavity size is normal. Left Ventricle: Left ventricular wall | | thickness is normal. Left Ventricle: There is moderate global hypokinesis of LV | | contractility. Left Ventricle: There is paradoxical/dysynergic septal motion consistent | | with post-operative status.Right Ventricle: The right ventricle is severely enlarged. | | Right Ventricle: The right ventricular systolic function is moderately impaired.Left | | Atrium: The left atrium is markedly enlarged.Right Atrium: The right atrium is | | moderately enlarged.Aortic Valve: The aortic valve appears to be trileaflet. Aortic | | Valve: Trace amount of aortic regurgitation. Aortic Valve: There is no evidence of | | aortic stenosis. Aortic Valve: Aortic valve is mildly thickened.Mitral Valve: There is | | trace mitral regurgitation. Mitral Valve: Bioprosthetic MVR is well seated.Tricuspid | | Valve: The tricuspid valve appears structurally normal. Tricuspid Valve: Moderate | | tricuspid regurgitation present. Tricuspid Valve: There is moderate pulmonary | | hypertension. Tricuspid Valve: The right ventricular systolic pressure (pulmonary artery | | systolic pressure), as measured by Doppler, is 48.36mmHg.Pulmonic Valve: The pulmonic | | valve was not well visualized. Pulmonic Valve: Moderate pulmonic | | regurgitation.Pericardium: There is no pericardial effusion. Pericardium: No pleural | | effusion seen.IVC/Hepatic Veins: The IVC is normal size (1.5-2.5cm) and collapses <50% | | with sniff, consistent with central venous pressures of 10-15mmHg.Aorta: The aortic | | root, ascending aorta and aortic arch are normal.MEASUREMENTS Ao asc: 3.35 | | cmAo Diam: 3.56 cmAo sinus: 3.[address] junct: 3.53 cmIVC: 2.49 cmLA Major: | | 7.09 cmEDV(Teich): 90.36 mlIVSd: 1.12 cmLVIDd: 4.45 cmLVPWd: 0.84 cmLVOT Diam: | | 2.52 cm%FS: 18.14 %EF(Teich): 37.83 %ESV(Teich): 56.17 mlLVIDs: 3.64 | | cmSV(Teich): 34.18 mlRA Major: 6.00 cmRV Major: 8.13 cmRV Minor: 5.00 cmRVIDd: | | 4.30 cmLVEF MOD A2C: 38.30 %SV MOD A2C: 30.35 mlLVEF MOD A4C: 44.62 %SV MOD A4C: | | 35.03 mlEF Biplane: 39.48 %LVEDV MOD BP: 78.11 mlLVESV MOD BP: 47.27 mlLVEDV MOD | | A2C: 79.24 mlLVLd A2C: 7.99 cmLVEDV MOD A4C: 78.51 mlLVLd A4C: 8.03 cmLVESV MOD | | A2C: 48.89 mlLVLs A2C: 7.45 cmLVESV MOD A4C: 43.47 mlLVLs A4C: 7.06 | | cmLAESV(A-L): 150.73 mlLAESV Index (A-L): 77.69 ml/m2LAAs A2C: 34.70 [id number] A-L | | A2C: 141.98 mlLAESV MOD A2C: 138.71 mlLALs A2C: 7.20 cmLAAs A4C: 36.56 [id number] | | A-L A4C: 158.79 mlLAESV MOD A4C: 157.49 mlLALs A4C: 7.14 cmRAAs: 25.93 [id number] | | A-L: 88.67 mlRAESV MOD: 88.89 mlRALs: 6.43 cmTAPSE: 1.34 cmAV Env.Ti: 265.67 | | msAV maxP.20 mmHgAV meanP.12 mmHgAV Vmax: 1.02 m/Jack Vmean: 0.67 m/Jack | | VTI: 17.96 cmAVA Vmax: 3.49 cm2AVA (VTI): 3.62 [id number] Vmax: 0.00 cm2/m2AVAI | | (VTI): 0.00 cm2/m2LVOT Env.Ti: 265.67 msLVOT maxP.04 mmHgLVOT meanP.12 | | mmHgLVSI Dopp: 33.61 ml/m2LVSV Dopp: 65.21 mlLVOT Vmax: 0.71 m/sLVOT Vmean: 0.48 | | m/sLVOT VTI: 13.01 cmMV E Yfn: 1.71 m/sE' Lat: 0.09 m/sMV maxP.01 mmHgMV | | meanP.01 mmHgMV Vmax: 1.73 m/sMV Vmean: 1.03 m/sMV VTI: 48.36 cmMVA (VTI): | | 1.34 cm2RAP: 15 mmHgRV S': 0.10 m/sRVSP: 48.36 mmHgTR maxP.36 mmHgTR Vmax: | | 2.88 m/sSonographer: Authenticated by: Maryam ReyesAultman Hospital Date/Time: 12-10-2018 | | 18:16:43IMPRESSION:1. The left ventricle is normal in size, wall thicknesss and | | moderately impaired systolic function EF 35-40%.2. The right ventricle is severely | | enlarged with moderately impaired systolic function.3. Bioprosthetic MVR is well seated, | | elevated mean gradient of 8 mmHg.4. Moderate tricuspid regurgitation and mild pulmnary | | hypertension RVSP 48 mmHg. 5. There is no pericardial effusion. | |Ao st junct: 3.53 cm | |IVC: 2.49 cm | |LA Major: 7.09 cm | |EDV(Teich): 90.36 ml | |IVSd: 1.12 cm | |LVIDd: 4.45 cm | |LVPWd: 0.84 cm | |LVOT Diam: 2.52 cm | |%FS: 18.14 % | |EF(Teich): 37.83 % | |ESV(Teich): 56.17 ml | |LVIDs: 3.64 cm | |SV(Teich): 34.18 ml | |RA Major: 6.00 cm | |RV Major: 8.13 cm | |RV Minor: 5.00 cm | |RVIDd: 4.30 cm | |LVEF MOD A2C: 38.30 % | |SV MOD A2C: 30.35 ml | |LVEF MOD A4C: 44.62 % | |SV MOD A4C: 35.03 ml | |EF Biplane: 39.48 % | |LVEDV MOD BP: 78.11 ml | |LVESV MOD BP: 47.27 ml | |LVEDV MOD A2C: 79.24 ml | |LVLd A2C: 7.99 cm | |LVEDV MOD A4C: 78.51 ml | |LVLd A4C: 8.03 cm | |LVESV MOD A2C: 48.89 ml | |LVLs A2C: 7.45 cm | |LVESV MOD A4C: 43.47 ml | |LVLs A4C: 7.06 cm | |LAESV(A-L): 150.73 ml | |LAESV Index (A-L): 77.69 ml/m2 | |LAAs A2C: 34.70 cm2 | |LAESV A-L A2C: 141.98 ml | |LAESV MOD A2C: 138.71 ml | |LALs A2C: 7.20 cm | |LAAs A4C: 36.56 cm2 | |LAESV A-L A4C: 158.79 ml | |LAESV MOD A4C: 157.49 ml | |LALs A4C: 7.14 cm | |RAAs: 25.93 cm2 | |RAESV A-L: 88.67 ml | |RAESV MOD: 88.89 ml | |RALs: 6.43 cm | |TAPSE: 1.34 cm | |AV Env.Ti: 265.67 ms | |AV maxP.20 mmHg | |AV meanP.12 mmHg | |AV Vmax: 1.02 m/s | |AV Vmean: 0.67 m/s | |AV VTI: 17.96 cm | |DONOVAN Vmax: 3.49 cm2 | |DONOVAN (VTI): 3.62 cm2 | |AVAI Vmax: 0.00 cm2/m2 | |AVAI (VTI): 0.00 cm2/m2 | |LVOT Env.Ti: 265.67 ms | |LVOT maxP.04 mmHg | |LVOT meanP.12 mmHg | |LVSI Dopp: 33.61 ml/m2 | |LVSV Dopp: 65.21 ml | |LVOT Vmax: 0.71 m/s | |LVOT Vmean: 0.48 m/s | |LVOT VTI: 13.01 cm | |MV E Yfn: 1.71 m/s | |E' Lat: 0.09 m/s | |MV maxP.01 mmHg | |MV meanP.01 mmHg | |MV Vmax: 1.73 m/s | |MV Vmean: 1.03 m/s | |MV VTI: 48.36 cm | |MVA (VTI): 1.34 cm2 | |RAP: 15 mmHg | |RV S': 0.10 m/s | |RVSP: 48.36 mmHg | |TR maxP.36 mmHg | |TR Vmax: 2.88 m/s | | | |Fund Raiser: | |Authenticated by: Maryam Caal | |Report Date/Time: 12-10-2018 18:16:43 | | | |IMPRESSION: | |1. The left ventricle is normal in size, wall thicknesss and moderately impaired systolic f unction EF 35-40%. | |2. The right ventricle is severely enlarged with moderately impaired systolic function. | |3. Bioprosthetic MVR is well seated, elevated mean gradient of 8 mmHg. | |4. Moderate tricuspid regurgitation and mild pulmnary hypertension RVSP 48 mmHg. | |5. There is no pericardial effusion. | + + + + + + + | Performing | Address | City/State/Zipcode | Phone Number | | Organization | | | | + + + + + | [facility] | [address] | [place] [address] | | + + + + + in this encounter Visit Diagnoses + + | Diagnosis | + + | S/P MVR (mitral valve repair) - Primary | + + | Other postprocedural status | + + | Non-ischemic cardiomyopathy (HCC) | + + | Other primary cardiomyopathies | + + | Incarcerated right inguinal hernia | + + | nursing home (current) use of anticoagulants | + + | Persistent atrial fibrillation (HCC) | + + | Atrial fibrillation | + +
--- OUTSIDE RECORDS SUMMARY | ~2018-12-20 | XMS | Encounter Summary ---
Demographics + + + | Address | [address] | | | [place] [address] | + + + | Home Phone | | + + + | Preferred Language | Unknown | + + + | Marital Status | | + + + | Congregational Affiliation | 1025 | + + + | Race | Unknown | + + + | Ethnic Group | Unknown | + + + Author + + + | Author | [facility] | + + + | Organization | [facility] | + + + | Address | [...] Team Providers + +------+ + | Care Mill Operator Name | Role | Phone | + +------+ + | Roge Emery MD | PCP | | + +------+ + Reason for Visit +--------+ + | Reason | Comments | +--------+ + | Other | [facility] | +--------+ + Encounter Details +--------+ + + + + | Date | Type | Department | Care Team | Description | +--------+ + + + + | 10/23/ | Documentati | [facility] | Anel Escobar | [facility] | | 2019 | on Only | Cardiology [place] | [facility] | records) | | | | [address] | | | | | | [address] | | | | | | [place] [address] | | | | | | [phone] | | | +--------+ + + + + Social History + + [...] + + + as of this encounter Plan of Treatment +--------+---------+ + + + | Date | Type | Specialty | Care Team | Description | +--------+---------+ + + + | 01/22/ | Office | Cardiology | Maryam Wilder, | | | 2018 | Visit | | MD Jolanta Contrersa | | | | | | Dr Hendrickson, | | | | | | [place] [address] | | | | | | [phone] | | | | | | | | +--------+---------+ + + + as of this encounter Visit Diagnoses Not on filein this encounter"
--- OUTSIDE RECORDS SUMMARY | ~2018-12-20 | XMS | Clinical Summary ---
Demographics + + + | Address | [address] | | | [place] [address] | + + + | Home Phone | | + + + | Preferred Language | Unknown | + + + | Marital Status | | + + + | Mormon Affiliation | 1025 | + + + | Race | Unknown | + + + | Ethnic Group | Unknown | + + + Author + + + | Author | [facility] | | | and [place] | + + + | Organization | [facility] | | | [...] | + + +---------+ + | Laurel Laar | ECON | Unknown | | + + +---------+ + Care Team Providers + +------+ + | Care Sem Manager Name | Role | Phone | + [...] +--------+ +---------+ | MEDICARE | MEDICA | [id number] | Medica | [phone] | | | RE | | re | [phone] | | | | PART A | | | | | | | AND B | | | | | + +--------+ +--------+ +---------+ | [facility] | IHS | [id number] | Indemn | | | | SERVICE [...] | Self | [birth year] | Home: | [address] | | | [place] | | 1941 | [phone] | [place] | | | [place] | | | [phone] | [phone] | + +--------+ +--------+ + +
--- OUTSIDE RECORDS SUMMARY | ~2018-12-20 | XMS | Encounter Summary ---
Demographics + + + | Address | [address] | | | [place] [address] | + + + | Home Phone | | + + + | Preferred Language | Unknown | + + + | Marital Status | | + + + | Faith Affiliation | 1025 | + + + | Race | Unknown | + + + | Ethnic Group | Unknown | + + + Author + + + | Author | [facility] | + + + | Organization | [facility] | + + + | Address | [...] | | + + +---------+ + | [place] | ECON | Unknown | | + + +---------+ + Care Team Providers + +------+ + | Care Flume Worker Name | Role | Phone | + +------+ + | Roge Emery MD | PCP | | + +------+ + Encounter Details +--------+ + + + + | Date | Type | Department | Care Team | Description | +--------+ + + + + | 12/10/ | Ancillary | [facility] | Maryam Wilder, | S/P MVR (mitral | | 2018 | Procedure | ECHO | MD [address] | valve repair); | | | | | Dr Hendrickson, | Non-ischemic | | | | | [place] [address] | cardiomyopathy | | | | | [phone] | (HCC); Incarcerated | | | | | | right inguinal | | | | | | hernia | +--------+ + + + + Social [...] | | 2018 | Visit | | [address] | | | | | | Dr Hendrickson, | | | | | | [place] [address] | | | | | | [phone] | | | | | | | | +--------+---------+ + + + as of this encounter Procedures + +--------+ + + + | Procedure Name | Priori | Date/Time | Associated Diagnosis | Comments | | | ty | | | | + +--------+ + + + | ECHO OUTSIDE | Routin | 12/10/2018 | S/P MVR (mitral | Results for this | | INTERPRETATION | e | 4:34 PM | valve repair) | procedure are in the | | STANDARD | | PDT | Non-ischemic | results section. | | | | | cardiomyopathy (HCC) | | | | | | Incarcerated right | | | | | | inguinal hernia | | + +--------+ + + + in this encounter Results ECHO outside interpretation standard [...] Juvenal Lara Date of : 1940 | [facility] | | Performing Physician: Maryam Wilder | RADIOLOGY | | | | | [...] | | | TR Vmax: 2.88 m/s [facility]: Authenticated by: Maryam | | | [facility] Report Date/Time: 12-10-2018 18:16:43 | | + + + + + | Procedure Note | + + | Rubio, Rad Results In - 12/10/2018 6:20 PM PDT Patient Name: Jose Lara of | | : 1940Accession: [id number] Physician: Maryam | | [facility] INDICATIONS------ | | -----Hx of MVRCONCLUSIONS 1. [...] mlLAESV Index (A-L): 77.69 ml/m2LAAs A2C: 34.70 [id number] A-L | | A2C: 141.98 mlLAESV MOD A2C: 138.71 mlLALs A2C: 7.20 cmLAAs A4C: 36.56 [id number] | | A-L A4C: 158.79 mlLAESV MOD A4C: 157.49 mlLALs A4C: 7.14 cmRAAs: 25.93 [id number] | | A-L: 88.67 mlRAESV MOD: 88.89 mlRALs: 6.43 cmTAPSE: 1.34 cmAV Env.Ti: 265.67 | | msAV maxP.20 mmHgAV meanP.12 mmHgAV Vmax: 1.02 m/Jack Vmean: 0.67 m/Jack | | VTI: 17.96 cmAVA Vmax: 3.49 cm2AVA (VTI): 3.62 [id number] Vmax: 0.00 cm2/m2AVAI | | (VTI): 0.00 [...] | | 2.88 m/sSonographer: Authenticated by: Maryam Deshpande Date/Time: 12-10-2018 | | 18:16:43IMPRESSION:1. The left [...] |TR Vmax: 2.88 m/s | | | |[facility]: | |Authenticated by: Maryam Wilder | |Report Date/Time: 12-10-2018 18:16:43 | | [...] | + + + + + | [facility] | [address] | [place] [address] | | + + + + + in this encounter Visit Diagnoses + + | Diagnosis | + + | S/P MVR (mitral valve repair) | + + | Other postprocedural status | + + | Non-ischemic cardiomyopathy (HCC) | + + | Other primary cardiomyopathies | + + | Incarcerated right inguinal hernia | + +"
--- OUTSIDE RECORDS SUMMARY | ~2018-12-20 | XMS | Clinical Summary ---
Demographics + + + | Address | [address] | | | [place] [address] | + + + | Home Phone | | + + + | Preferred Language | Unknown | + + + | Marital Status | Single | + + + | Zoroastrianism Affiliation | PRO | + + + | Race | White | + + + | Ethnic Group | Not or | + + + Author + + + | Author | [facility] | + + + | Organization | [facility] | + + + | Address | Unknown | + + + | Phone | Unavailable | + + + Support + + +---------+ + | Name | Relationship | Address | Phone | + + +---------+ + | DACIA ASHRAF | ECON | Unknown | | + + +---------+ + Care Team Providers + +------+ + | Care Rf Test Engineer Name | Role | Phone | + +------+ + PP | Unavailable | + +------+ + Source Comments [facility] is fully live on both [facility] and [facility] Allergies Not on File Current Medications Not on file Active Problems Not on file Social History + +-------+ +--------+------+ | Tobacco Use | Types | Packs/Day | Years | Date | | | | | Used | | + +-------+ +--------+------+ | Never Assessed | | | | | + +-------+ +--------+------+ + + + | Sex Assigned at | Date Recorded | | | | + + + | Not on file | | + + + Plan of Treatment + + + + + | Health Maintenance | Due Date | Last Done | Comments | + + + + + | Pneumococcal (Adult) | | | | | (1 of 2 - PCV13) | 5 | | | + + + + + | Influenza (Flu) | | | | | vaccination (#1) | 8 | | | + + + + + Results Not on filefrom Last 3 Months Insurance + +--------+ +--------+ + + | Payer | Benefi | Subscriber | Type | Phone | Address | | | t Plan | ID | | | | | | / | | | | | | | Group | | | | | + +--------+ +--------+ + + | MEDICARE | MEDICA | xxxxxxxxxx | Medica | [phone] [address] | | | RE A & | | re | [phone] | [place] [phone] | | | B | | | | | + +--------+ +--------+ + + | [facility] | [facility] | [phone] | Agency | | | | SERVICE | | | | | | | | HEALTH | | | | | | | | | | | | | | SERVIC | | | | | | | E | | | | | + +--------+ +--------+ + + + +--------+ +--------+ + + | Guarantor Name | Accoun | Relation to | Date | Phone | Billing Address | | | t Type | Patient | of | | | | | | | | | | + +--------+ +--------+ + + | JEWEL ASHRAF | Person | Self | [birth year] | Home: | [address] | | | al/[place]as | | 1941 | [phone] | [place] [address] | | | [place] | | | [phone] | | + +--------+ +--------+ + +"
--- OUTSIDE RECORDS SUMMARY | ~2018-12-20 | XMS | Clinical Summary ---
Demographics + + + | Address | [address] | | | [place] [address] | + + + | Home Phone | | + + + | Preferred Language | Unknown | + + + | Marital Status | | + + + | Restoration Affiliation | 1025 | + + + | Race | Unknown | + + + | Ethnic Group | Unknown | + + + Author + + + | Author | [email or web address] | + + + | Organization | [facility] | + + + | Address | [...] Team Providers + +------+ + | Care Slater Apprentice Name | Role | Phone | + +------+ + | Roge Emery MD | PP | | + +------+ + Allergies + + + + + + | Active Allergy | Reactions | Severity | Noted | Comments | | | | | Date | | + + + + + + | Acetaminophen | Nausea Only | Low | 04/24/20 | | | | | | 13 | | + + + + + + | Codeine | Nausea and Vomiting | Medium | 05/16/20 | | | | | | 17 | | + + + + + + | Hydrocodone | Other (See Comments) | Medium | 05/16/20 | Dyspnea | | | | | 17 | | + + + + + + | Ibuprofen | Hives | High | 04/24/20 | | | | | | 13 | | + + + + + + | Oxycodone | Other (See Comments) | Medium | 08/08/20 | Nausea,vomiting, | | | | | 13 | dizziness | + + + + + + | Prednisone | Nausea and Vomiting | Medium | 04/24/20 | | | | | | 13 | | + + + + + + | Quinine | Hives | High | 04/25/20 | | | | | | 10 | | + + + + + + | Sulfa Antibiotics | Other (See Comments) | Medium | 04/24/20 | Confusion | | | | | 13 | | + + + + + + | Trimethoprim | Hives | High | 05/16/20 | | | | | | 17 | | + + + + + + Current Medications + + +---------+---------+------+------+-------+ | Prescription | Sig. | Disp. | Refills | Star | End | Statu | | | | | | t | Date | s | | | | | | Date | | | + + +---------+---------+------+------+-------+ | dutasteride | Take 0.5 mg by mouth | | | | | Activ | | (AVODART) 0.5 MG | 2 (two) times | | | | | e | | capsule | daily. | | | | | | + + +---------+---------+------+------+-------+ | docusate sodium | Take 100 mg by mouth | | | | | Activ | | (COLACE) 100 MG | 2 (two) times | | | | | e | | capsule | daily. | | | | | | + + +---------+---------+------+------+-------+ | allopurinol | Take 200 mg by mouth | | | | | Activ | | (ZYLOPRIM) 100 MG | daily. | | | | | e | | tablet | | | | | | | + + +---------+---------+------+------+-------+ | furosemide (LASIX) | Take 40 mg by mouth | | | | | Activ | | 40 MG tablet | daily. | | | | | e | + + +---------+---------+------+------+-------+ | carvedilol (COREG) | Take 1 tablet by | 60 | 0 | 08/2 | 08/2 | Activ | | 6.25 MG tablet | mouth 2 (two) times | tablet | | 3/20 | 3/20 | e | | | daily with meals. | | | 18 | 19 | | + + +---------+---------+------+------+-------+ | potassium chloride | Take 2 tablets by | 60 | 0 | 08/2 | 08/2 | Activ | | (KROXIE DOSS) 20 | mouth daily with | tablet | | 3/20 | 3/20 | e | | MEQ tablet | breakfast. | | | 18 | 19 | | + + +---------+---------+------+------+-------+ | pregabalin | Take 1 capsule by | 60 | 0 | 08/2 | | Activ | | (LYRICA) 50 MG | mouth 2 (two) times | capsule | | 3/20 | | e | | capsule | daily for 30 days. | | | 18 | | | + + +---------+---------+------+------+-------+ | traMADol (ULTRAM) | Take 1 tablet by | 30 | 0 | 08/2 | | Activ | | 50 MG tablet | mouth every 6 (six) | tablet | | 3/20 | | e | | | hours as needed for | | | 18 | | | | | Pain. | | | | | | + + +---------+---------+------+------+-------+ | Multiple | Take 1 tablet by | | | | | Activ | | Vitamins-Minerals | mouth daily. | | | | | e | | (MULTIVITAMIN ADULTS | | | | | | | | PO) | | | | | | | + + +---------+---------+------+------+-------+ | melatonin 3 MG | Take 6 mg by mouth | | | | | Activ | | TABS | nightly. | | | | | e | + + +---------+---------+------+------+-------+ | warfarin | Take 1 tablet by | | | 02/0 | | Activ | | (COUMADIN) 4 MG | mouth nightly. | | | 6/20 | | e | | tabletIndications: | | | | 19 | | | | Followed by | | | | | | | | [facility] | | | | | | | + + +---------+---------+------+------+-------+ | | Take 1 tablet by | 60 | 2 | 02/0 | | Activ | | sacubitril-valsartan | mouth 2 (two) times | tablet | | 6/20 | | e | | (ENTRESTO) 49-51 MG | daily. | | | 19 | | | | per tablet | | | | | | | + + +---------+---------+------+------+-------+ Active Problems + + + | Problem | Noted Date | + + + | Incarcerated right inguinal hernia | 10/21/2018 | + + + + + | Overview: Last Assessment & Plan: Assessment: Symptomatic | | incarcerated right inguinal hernia.Plan: Robotic repair of right | | inguinal hernia with mesh, possible bilateral | |Plan: Robotic repair of right inguinal hernia with mesh, possible bilateral | + + + + + | Community acquired pneumonia | 04/29/2018 | + + + | Non-ischemic cardiomyopathy (HCC) | 12/05/2017 | + + + | S/P MVR (mitral valve repair) | 11/22/2016 | + + + | Hypertension | 10/09/2013 | + + + + + | Last Assessment & Plan: HTN, controlled, continue current | | meds at current dose (atenolol, furosemide). Labs reviewed with | | patient.Lab, 04/03/2016: Liver enzymes NML, K: 3.6, BUN/Cr: | | 12/0.8, glu: 134 ESR: 39, WBC: 8.6, H/H: | | 15.0/46.5, plt: 175 | + + + + + | Hyperlipidemia | 10/09/2013 | + + + + + | Last Assessment & Plan: Hyperlipidemia, values reasonable, no | | med required.Lab, 11/03/2015: T Chol: 167, LDL-Chol: 91, | | HDL-Chol: 48, Tri | + + + + + | Unspecified transient cerebral ischemia | 09/11/2013 | + + + + + | Last Assessment & Plan: Hx TIA, speech, resolved. No new | | visual disturbances, dysarthria, dysphagia, lateralizing signs or | | symptoms. 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 Currently in sinus rhythm. He is | | unaware of any palpitations. Denies any new visual disturbances, | | dysarthria, dysphasia, lateralizing signs or symptoms. No | | significant bleeding or bruising.. | + + Resolved Problems + + + + | Problem | Noted | Resolved | | | Date | Date | + + + + | ICU Delirium | 05/09/20 | | | | 18 | 9 | + + + + | Lactic acidosis | 05/01/20 | | | | 18 | 9 | + + + + | Shock liver | 05/01/20 | | | | 18 | 9 | + + + + | Cardiogenic shock (HCC) | 04/29/20 | | | | 18 | 9 | + + + + | Acute metabolic encephalopathy | 04/29/20 | | | | 18 | 9 | + + + + | Septic shock (HCC) | 04/26/20 | | | | 18 | 9 | + + + + | Acute respiratory failure with hypoxia (HCC) | 04/26/20 | | | | 18 | 9 | + + + + | Paroxysmal atrial fibrillation (HCC) | 11/23/19 | | | | 17 | 9 | + + + + | Heart valve replaced by other means | 09/11/20 | | | | 13 | 9 | + + + + | Mitral valve disorders(424.0) | 09/11/20 | | | | 13 | 8 | + + + + + + | Last Assessment & Plan: MVR. 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 He was seen in the emergency | | room December, shortness of breath, cause not entirely clear, the | | workup was benign, chest x-ray benign. Tolerating medications. | | We'll increase Lasix to 40 mg daily. Increase potassium to 20 | | mEq twice daily. Labs requested for future visit.Hx | | Pacemaker/ICD: noLast Cath, 03/01/2006: no significant CAD, severe | | MR, mild Pulmonary HTN.Last Echo, 02/09/2015 ([facility]): MVR, | | stable, 10mmHg mean gradient, trace MR, LVEF 60%, severe LAE, | | moderate BOB, RV enlarged, moderate BOB, trace AI, moderate TR, | | moderate PI, est systolic PAP 48-53mmHg, mild Pulmonary HTN.Last | | Stess Test, 03/08/2011: 3:48min Pal, no chest pain, no ischemia | | detected, occ PVC's noted.ECG, 01/13/2016 ([facility]): sinus | | rhythm, 81bpm, LAD, PRWP, IVCD, diffuse non-spec ST-T changes. | + + Encounters +--------+ + + + + | Date | Type | Specialty | Care Team | Description | +--------+ + + + + | 12/10/ | Ancillary | | Maryam Wilder, | S/P MVR (mitral | | 2018 | Procedure | | MD | valve repair); | | | | | | Non-ischemic | | | | | | cardiomyopathy | | | | | | (HCC); Incarcerated | | | | | | right inguinal | | | | | | hernia | +--------+ + + + + | 10/23/ | Office | | Maryam Wilder, | S/P MVR (mitral | | 2018 | Visit | | MD | valve repair) | | | | | | (Primary Dx); | | | | | | Non-ischemic | | | | | | cardiomyopathy | | | | | | (HCC); Incarcerated | | | | | | right inguinal | | | | | | hernia; residential | | | | | | (current) use of | | | | | | anticoagulants; | | | | | | Persistent atrial | | | | | | fibrillation (HCC) | +--------+ + + + + | 10/23/ | Documentati | | Shawn Anel | [facility] | | 2018 | on Only | | [facility] | records) | +--------+ + + + + | 10/16/ | Documentati | | Maryam Wilder, | | | 2018 | on Only | | MD | | +--------+ + + + + from Last 3 Months Family History + + +------+ + | Medical History | Relation | Name | Comments | + + +------+ + | Diabetes type II | Daughter | | | + + +------+ + | High cholesterol | Daughter | | | + + +------+ + | Diabetes type II | Son | | | + + +------+ + | High cholesterol | Son | | | + + +------+ + + +------+ + + | Relation | Name | Status | Comments | + +------+ + + | Daughter | | Alive | 42 yrs, DMII,hyperlipidemia | + +------+ + + | Father | | | MVA | | | | (Age | | | | | 60) | | + +------+ + + | Maternal Grandfather | | | | + +------+ + + | Maternal Grandmother | | | unknown status | | | | (Age | | | | | 112) | | + +------+ + + | Mother | | | unknown status | | | | (Age | | | | | 103) | | + +------+ + + | Paternal Grandfather | | | | + +------+ + + | Paternal Grandmother | | | unknown status | | | | (Age | | | | | 96) | | + +------+ + + | Son | | Alive | 50 yrs., DMII Hyperlipidemia | + +------+ + + Social History [...] + + + + | Temperature | 36.7 C (98.1 F) | 05/09/2018 9:58 AM PDT | + + + + | Respiratory Rate | 22 | 05/09/2018 9:58 AM PDT | + + + + | Oxygen [...] AM PST | + + + + Plan of Treatment +--------+---------+ + + + | Date | Type | Specialty | Care Team | Description | +--------+---------+ + + + | 01/22/ | Office | | Maryam Wilder, | | | 2018 | Visit | | MD Jolanta Contreras | | | | | | Dr [address], | | | | | | [place] [address] | | | | | | [phone] | | | | | | | | +--------+---------+ + + + + + + + + | Health [...] | | + + + + + Procedures + +--------+ + + + | [...] | | + +--------+ + + + from Last 3 Months Results ECHO outside interpretation standard (12/10/2018 4:34 [...] | + + + | Patient Name: Jewel Lara Date of : 1940 | [facility] | | Performing Physician: Maryam Wilder | [...] | | | TR Vmax: 2.88 m/s Rail Switch Operator: Authenticated by: Maryam | | | [facility] Report Date/Time: 12-10-2018 18:16:43 | | + + + + + | Procedure Note | + + | Rubio, Rad Results In - 12/10/2018 6:20 PM PDT Patient Name: Jose Lara of | | : 1940Accession: [id number] Physician: Maryam | | [facility] INDICATIONS------ | | -----Hx of MVRCONCLUSIONS 1. [...] mlLAESV Index (A-L): 77.69 ml/m2LAAs A2C: 34.70 [id number] A-L | | A2C: 141.98 mlLAESV MOD A2C: 138.71 mlLALs A2C: 7.20 cmLAAs A4C: 36.56 [id number] | | A-L A4C: 158.79 mlLAESV MOD A4C: 157.49 mlLALs A4C: 7.14 cmRAAs: 25.93 [id number] | | A-L: 88.67 mlRAESV MOD: 88.89 mlRALs: 6.43 cmTAPSE: 1.34 cmAV Env.Ti: 265.67 | | msAV maxP.20 mmHgAV meanP.12 mmHgAV Vmax: 1.02 m/Jack Vmean: 0.67 m/Jack | | VTI: 17.96 cmAVA Vmax: 3.49 cm2AVA (VTI): 3.62 [id number] Vmax: 0.00 cm2/m2AVAI | | (VTI): 0.00 [...] |LVOT VTI: 13.01 cm | |MV E Ynf: 1.71 m/s | |E' Lat: 0.09 m/s | |MV maxP.01 mmHg | |MV meanP.01 mmHg | |MV Vmax: 1.73 m/s | |MV Vmean: 1.03 m/s | |MV VTI: 48.36 cm | |MVA (VTI): 1.34 cm2 | |RAP: 15 mmHg | |RV S': 0.10 m/s | |RVSP: 48.36 mmHg | |TR maxP.36 mmHg | |TR Vmax: 2.88 m/s | | | |Rail Switch Operator: | |Authenticated by: Maryam Wilder | |Report [...] | + + + + + | [facility] | [address] | [place] [address] | | + + + + + from Last 3 Months Insurance + +--------+ +------+-------+ + | Payer | Benefi | Subscriber | Type | Phone | Address | | | t Plan | ID | | | | | | / | | | | | | | Group | | | | | + +--------+ +------+-------+ + | MEDICARE | MEDICA | [id number] | | | [address] | | | RE | | | | [place] [phone] | | | IP-OP | | | | | + +--------+ +------+-------+ + | [facility] | YELLOW | [id number] | | | | | PLANS | [place] | | | | | + +--------+ +------+-------+ + + +--------+ +--------+ + + | Guarantor Name | Accoun | Relation to | Date | Phone | Billing Address | | | t Type | Patient | of | | | | | | | | | | + +--------+ +--------+ + + | JEWEL LAAR | Person | Self [birth year] | Home: | [address] | | | al/Fam | | 1941 | [phone] | [place] | | | [place] | | | [phone] | [phone] | + +--------+ +--------+ + +
--- OUTSIDE RECORDS SUMMARY | ~2018-12-20 | XMS | Encounter Summary ---
Demographics + + + | Address | [address] | | | [place] [address] | + + + | Home Phone | | + + + | Preferred Language | Unknown | + + + | Marital Status | | + + + | Buddhist Affiliation | 1025 | + + + | Race | Unknown | + + + | Ethnic Group | Unknown | + + + Author + + + | Author | [facility] | + + + | Organization | [facility] | + + + | Address | [...] Team Providers + +------+ + | Care Supervisor Metal Hanging Name | Role | Phone | + [...] | | | | | [place] [address] | | | | | | [phone] | | | +--------+ + + + [...] | | | | | | [place] [address] | | | | | | [phone] | | | | | | | | +--------+---------+ + + + as of this encounter Visit Diagnoses Not on filein this encounter"
--- OUTSIDE RECORDS SUMMARY | ~2018-12-20 | XMS | Encounter Summary ---
Demographics + + + | Address | [address] | | | [place] [address] | + + + | Home Phone | | + + + | Preferred Language | Unknown | + + + | Marital Status | | + + + | Orthodoxy Affiliation | 1025 | + + + | Race | Unknown | + + + | Ethnic Group | Unknown | + + + Author + + + | Author | [employer] | + + + | Organization | [facility] [employer] | + + + | Address | [...] Team Providers + +------+ + | Care Feed Crusher Name | Role | Phone | + [...] | | | | | clearance | [address] | [address] | | | | | hernia | [place] | Dr Leyva | | | | | repair | Way | [place] | | | | | Procedures | [place], | [address] Phone: | | | | | Routine | [place] [address] | [phone] | | | | | | Phone: | Fax: | | | | | | [phone] | [phone] | | | | | | Fax: | | | | | | | [phone] | | +--------+--------+ + + + + [...] | | Way [address] | [place] [address] | Non-ischemic | | | | [place] [address] | [phone] | cardiomyopathy | | | | [phone] | | (HCC); Incarcerated | | | | | | right inguinal | | | | | | hernia; long-term | | | | | | (current) use of | | | | | | anticoagulants; | | | | | | Persistent atrial | | | | | | fibrillation ([facility]) | +--------+---------+ + + + Social History [...] [place], | | | | | | [place] [address] | | | | | | [phone] | | | | | | | [...] Juvenal Lara Date of : 1940 | [facility] | | Performing Physician: Maryam Caal | [...] | | | TR Vmax: 2.88 m/s Wood Cutter: Authenticated by: Maryam | | | Tina Report Date/Time: 12-10-2018 18:16:43 | | + + + + + | Procedure Note | + + | Albin Bergeron In - 12/10/2018 6:20 PM PDT Patient Name: Jose Lara of | | : 1940Accession: [id number] Physician: Maryam | | Tina INDICATIONS------ | [...] mlLAESV Index (A-L): 77.69 ml/m2LAAs A2C: 34.70 [id number] A-L | | A2C: 141.98 mlLAESV MOD A2C: 138.71 mlLALs A2C: 7.20 cmLAAs A4C: 36.56 [id number] | | A-L A4C: 158.79 mlLAESV MOD A4C: 157.49 mlLALs A4C: 7.14 cmRAAs: 25.93 [id number] | | A-L: 88.67 mlRAESV MOD: 88.89 mlRALs: 6.43 cmTAPSE: 1.34 cmAV Env.Ti: 265.67 | | msAV maxP.20 mmHgAV meanP.12 mmHgAV Vmax: 1.02 m/Jack Vmean: 0.67 m/Jack | | VTI: 17.96 cmAVA Vmax: 3.49 cm2AVA (VTI): 3.62 [id number] Vmax: 0.00 cm2/m2AVAI | | (VTI): 0.00 [...] | | 2.88 m/sSonographer: Authenticated by: [facility] Date/Time: 12-10-2018 | | 18:16:43IMPRESSION:1. The [...] |TR Vmax: 2.88 m/s | | | |Wood Cutter: | |Authenticated by: Maryam Caal | |Report [...] [facility] | [address] | [place] [address] | | + + + + + in this encounter Visit Diagnoses + + | Diagnosis | + + | S/P MVR (mitral valve repair) - Primary | + + | Other postprocedural status | + + | Non-ischemic cardiomyopathy (HCC) | + + | Other primary cardiomyopathies | + + | Incarcerated right inguinal hernia | + + | long-term (current) use of anticoagulants | + + | Persistent atrial fibrillation (HCC) | + + | Atrial fibrillation | + +
--- OUTSIDE RECORDS SUMMARY | ~2018-12-20 | XMS | Encounter Summary ---
Demographics + + + | Address | [address] | | | [place] [address] | + + + | Home Phone | | + + + | Preferred Language | Unknown | + + + | Marital Status | | + + + | Sikh Affiliation | 1025 | + + + | Race | Unknown | + + + | Ethnic Group | Unknown | + + + Author + + + | Author | [employer] | + + + | Organization | [facility] | + + + | Address | [...] Team Providers + +------+ + | Care Llama Farmer Name | Role | Phone | + +------+ + | Roge Emery MD | PCP | | + +------+ + Encounter Details +--------+ + + + + | Date | Type | Department | Care Team | Description | +--------+ + + + + | 10/16/ | Documentati | [facility] | Maryam Wilder, | | | 2019 | on Only | Barbara Mcintyre | [address] | | | | | [address] | [address] Leyva [place], | | | | | [place], [place] | [place] [address] | | | | | [address] | [phone] | | | | | [phone] | | | +--------+ + + + [...] Cardiology | Maryam Wilder, | | | 2019 | Visit | | MD Jolanta Contreras | | | | | | Dr [place], | | | | | | [place] [address] | | | | | | [phone] | | | | | | | | +--------+---------+ + + + as of this encounter Visit Diagnoses Not on filein this encounter"
--- OUTSIDE RECORDS SUMMARY | ~2018-12-20 | XMS | Clinical Summary ---
Demographics + + + | Address | [address] | | | [place] [address] | + + + | Home Phone | | + + + | Preferred Language | Unknown | + + + | Marital Status | | + + + | Nondenominational Affiliation | 1025 | + + + | Race | Unknown | + + + | Ethnic Group | Unknown | + + + Author + + + | Author | [email or web address] [facility] | + + + | Organization | [facility] | + + + | Address | [...] Team Providers + +------+ + | Care Senior Drafter Name | Role | Phone | + [...] | + + + + + | terminal manager (current) use of anticoagulants | 09/11/2013 | [...] | | | | | | hernia; senior care | | | | | | (current) [...] | | | | | | [place] [address] | | | | | | [phone] | | | | | | | [...] Jewel Lara Date of : 1940 | [facility] | | Performing Physician: Maryam Wilder [...] | | | TR Vmax: 2.88 m/s Air Hose Coupler: Authenticated by: Maryam | | | [facility] Report Date/Time: 12-10-2018 18:16:43 | | + + + + + | Procedure Note | + + | Rubio, Rad Results In - 12/10/2018 6:20 PM PDT Patient Name: Jose Lara of | | : 1940Accession: [id number] Physician: Maryam | | Ericamara INDICATIONS------ | [...] mlLAESV Index (A-L): 77.69 ml/m2LAAs A2C: 34.70 [id number] A-L | | A2C: 141.98 mlLAESV MOD A2C: 138.71 mlLALs A2C: 7.20 cmLAAs A4C: 36.56 [id number] | | A-L A4C: 158.79 mlLAESV MOD A4C: 157.49 mlLALs A4C: 7.14 cmRAAs: 25.93 [id number] | | A-L: 88.67 mlRAESV MOD: 88.89 mlRALs: 6.43 cmTAPSE: 1.34 cmAV Env.Ti: 265.67 | | msAV maxP.20 mmHgAV meanP.12 mmHgAV Vmax: 1.02 m/Jack Vmean: 0.67 m/Jack | | VTI: 17.96 cmAVA Vmax: 3.49 cm2AVA (VTI): 3.62 [id number] Vmax: 0.00 cm2/m2AVAI | | (VTI): 0.00 [...] |TR Vmax: 2.88 m/s | | | |Air Hose Coupler: | |Authenticated by: Maryam Wilder | |Report [...] [facility] | [address] | [place] [address] | | + + + + + [...] +------+-------+ + | MEDICARE | MEDICA | [id number] | | | [address] | | | RE | | | | [place] [address] | | | IP-OP | | | | | + +--------+ +------+-------+ + | [employer] | YELLOW | [id number] | | | | | PLANS | [...] | Self | [birth year] | Home: | [address] | | | al/Fam | | 1941 | [phone] | [place] | | | [place] | | | [phone] | [address] | + +--------+ +--------+ + +
--- OUTSIDE RECORDS SUMMARY | ~2018-12-20 | XMS | Encounter Summary ---
Demographics + + + | Address | [address] | | | [place] [address] | + + + | Home Phone | | + + + | Preferred Language | Unknown | + + + | Marital Status | | + + + | Presybeterian Affiliation | 1025 | + + + | Race | Unknown | + + + | Ethnic Group | Unknown | + + + Author + + + | Author | [employer] | + + + | Organization | [facility] [employer] | + + + | Address | [...] Team Providers + +------+ + | Care Inspector Fuel Hose Name | Role | Phone | + [...] Non-ischemic | | | | | [place] [address] | cardiomyopathy | | | | | [phone] | (HCC); Incarcerated | | | | [...] | | | | | | [place] [address] | | | | | | [phone] | | | | | | | [...] Juvenal Lara Date of : 1940 | [facility] | | Performing Physician: Maryam Wilder | [...] | | | TR Vmax: 2.88 m/s Thread Separator: Authenticated by: Maryam | | | Ericainsworth Report Date/Time: 12-10-2018 18:16:43 | | + + + + + | Procedure Note | + + | Rubio, Rad Results In - 12/10/2018 6:20 PM PDT Patient Name: Jose Lara of | | : 1940Accession: [id number] Physician: Maryam | | [facility] INDICATIONS------ | | -----Hx of MVRCONCLUSIONS 1. [...] mlLAESV Index (A-L): 77.69 ml/m2LAAs A2C: 34.70 [id number] A-L | | A2C: 141.98 mlLAESV MOD A2C: 138.71 mlLALs A2C: 7.20 cmLAAs A4C: 36.56 [id number] | | A-L A4C: 158.79 mlLAESV MOD A4C: 157.49 mlLALs A4C: 7.14 cmRAAs: 25.93 [id number] | | A-L: 88.67 mlRAESV MOD: 88.89 mlRALs: 6.43 cmTAPSE: 1.34 cmAV Env.Ti: 265.67 | | msAV maxP.20 mmHgAV meanP.12 mmHgAV Vmax: 1.02 m/Jack Vmean: 0.67 m/Jack | | VTI: 17.96 cmAVA Vmax: 3.49 cm2AVA (VTI): 3.62 [id number] Vmax: 0.00 cm2/m2AVAI | | (VTI): 0.00 [...] |TR Vmax: 2.88 m/s | | | |Thread Separator: | |Authenticated by: Maryam Wilder | |Report [...] | + + + + + | [facility] | [address] [facility] | [place] [address] | | + + + + + [...]
--- OUTSIDE RECORDS SUMMARY | ~2018-12-20 | XMS | Clinical Summary ---
Demographics + + + | Address | [address] | | | [place] [address] | + + + | Home Phone | | + + + | Preferred Language | Unknown | + + + | Marital Status | Single | + + + | Cheondoism Affiliation | PRO | + + + [...] Team Providers + +------+ + | Care Jeeper Operator Name | Role | Phone | + +------+ + PP | Unavailable | + +------+ + Source Comments BE is fully live on both [facility] and [facility] InPatient.[facility] Allergies Not on File Current Medications Not [...] | MEDICA | xxxxxxxxxx | Medica | [phone] | [address] | | | RE A & | | re | [phone] | [place] [address] | | | B | | | | | + +--------+ +--------+ + + | [facility] | SAMMARINESE | xxxxxxxxx | Agency | | | [...] | Self | [birth year] | Home: | [address] | | | al/Ras | | 1941 | [phone] | [place] [address] | | | [place] | | | [phone] | | + +--------+ +--------+ + +"
--- OUTSIDE RECORDS SUMMARY | ~2018-12-20 | XMS | Encounter Summary ---
Demographics + + + | Address | [address] | | | [place] [address] | + + + | Home Phone | | + + + | Preferred Language | Unknown | + + + | Marital Status | | + + + | Oriental Orthodox Affiliation | 1025 | + + + | Race | Unknown | + + + | Ethnic Group | Unknown | + + + Author + + + | Author | [facility] | + + + | Organization | [facility] | + + + | Address | [...] Team Providers + +------+ + | Care Still Operator Gin Name | Role | Phone | + +------+ + | Roge Emery MD | PCP | | + +------+ + Encounter Details +--------+ + + + + | Date | Type | Department | Care Team | Description | +--------+ + + + + | 10/16/ | Documentati | [facility] [place] | Maryam Wilder, | | | 2019 | on Only | Barbara Mcintyre | [address] | | | | | [address] | [address] Leyva [place], | | | | | [place], [place] | [place] [address] | | | | | [address] | [phone] | | | | | [phone] | | | +--------+ + + + [...] [place], | | | | | | [place] [address] | | | | | | [phone] | | | | | | | | +--------+---------+ + + + as of this encounter Visit Diagnoses Not on filein this encounter"
[~2018-12-20 12:39] MED LIST changes: +ENTRESTO 24 MG1 EACH PO; +METOPROLOL SUCC50 MG PO
--- OUTSIDE RECORDS SUMMARY | 2018-12-20 12:42 | XMS ---
PreManage Notification: JEWEL ASHRAF Security Zig Zag Stitcher Events No recent Security Events currently on file CRITERIA MET - [facility] PROVIDERS DR DAVIE BAHENA Primary Care Current PHONE: [phone] Elier Whiting Current PHONE: Unknown Marco has no Care Guidelines for this patient. Perfecto VISIT COUNT (12 MO.) Robert Prescott TOTAL 2 NOTE: Visits indicate total known visits. ED/UCC VISIT TRACKING (12 MO.) 12/20/2018 12:39 [facility] [place] TYPE: Emergency COMPLAINT: - CAT BITE 04/25/2018 14:07 [facility] [place] TYPE: Emergency COMPLAINT: - MULTIPLE COMPLAINTS INPATIENT VISIT TRACKING (12 MO.) [facility] DIAGNOSES: - Sepsis, unspecified organism - Acute respiratory failure with hypoxia - Cardiogenic shock - Other specified postprocedural states - Pneumonia, unspecified organism - Respiratory Failure - Paroxysmal atrial fibrillation - Other cardiomyopathies - Acidosis - Severe sepsis with septic shock 04/25/2018 16:31 BR[facility] Chirinos TYPE: Critical Care COMPLAINT: - SEPSIS, PNA DIAGNOSES: - Allergy status to sulfonamides status - Hemoptysis - Other prison (current) drug therapy - Dorsalgia, unspecified - Pneumonia, unspecified organism - Chronic pain syndrome - Respiratory failure, unspecified with hypoxia - intermediate designer (current) use of anticoagulants - Metabolic encephalopathy - Chronic systolic (congestive) heart failure - Paroxysmal atrial fibrillation - Benign prostatic hyperplasia without lower urinary tract symptoms - Allergy status to other anti-infective agents status - Allergy status to other drugs, medicaments and biological substances status - Presence of prosthetic heart valve - Sepsis, unspecified organism - intermediate (current) use of opiate analgesic - Allergy status to narcotic agent status [email or web address]
== END 2018-12-20 13:20 | disposition home or self-care (01) ==
LOC: ED 12:39
DX: T14.8XXA Other injury of unspecified body region, initial encounter (principal); W55.01XA Bitten by cat, initial encounter

== ENCOUNTER 2019-12-03 16:07 | Emergency (ER) | payer MEDICARE, OTHER ==
[~2019-12-03] VITALS: Ht 167.6 cm; Wt 86.2 kg
[~2019-12-03 16:07] MED LIST changes: +CARVEDILOL6.25 MG PO; +COREG6.25 MG PO; +ENTRESTO 49 MG1 EACH PO; +MELATONIN3 MG PO; +METHYLPREDNISOL16 MG PO; +METHYLPREDNISOL32 MG PO; +METHYLPREDNISOLO4 MG PO; +METHYLPREDNISOLO8 MG PO; +MULTIVITAMINS1 EAC8 PO; +MUPIROCIN1 GM TOP; +POTASSIUM CHLO10 ME2 PO; +PROAIR DIGIHAL90 MCG
--- OUTSIDE RECORDS SUMMARY | 2019-12-03 16:10 | XMS ---
PreManage Notification: JEWEL ASHRAF Security Scientific Photographer Events No recent Security Events currently on file CRITERIA MET - [facility] - Has Care Guidelines - History of Sepsis Dx - PDMP - [facility] - 2 Visits in 30 Days CARE PROVIDERS MEGAN THOMSON Nurse Practitioner 12/23/2018-Current PHONE: [phone] Name Unknown Clinic/Center 11/14/2019-Current PHONE: [phone] DR DAVIE BAHENA Primary Care Current PHONE: [phone] Elier Whiting MD PHONE: Unknown Marco has no Care Guidelines for this patient. Care History Medical/Surgical 12/23/2018 [facility] - PATIENT IS A [place] ELIGIBLE, \T\middot;\T\nbsp; PLEASE REFER PATIENT TO [facility] FOR NON EMERGENT MEDICAL NEEDS. \T\middot;\T\nbsp; [facility] CAN SEE PATIENTS SAME DAY FOR APTS IF PATIENT CALLS FIRST THING IN THE MORNING. E.D. VISIT COUNT (12 MO.) 4 [facility]. TOTAL 4 NOTE: Visits indicate total known visits. 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
== END 2019-12-03 20:06 | disposition short-term general hospital (02) ==
LOC: ED 16:07
DX: A41.9 Sepsis, unspecified organism (principal); R65.20 Severe sepsis without septic shock; I50.9 Heart failure, unspecified; I48.91 Unspecified atrial fibrillation; I11.0 Hypertensive heart disease with heart failure; Z88.2 Allergy status to sulfonamides; Z88.5 Allergy status to narcotic agent; Z79.899 Other long term (current) drug therapy
CPT/HCPCS: 51702; 71045; 80053; 81001; 82803; 83605; 83880; 84484; 85025; 85610; 85730; 87502; 93005; 93010; 94660; 99285-25; J0696; J1940; J1956; J2543; J7050

== ENCOUNTER 2019-12-13 17:53 | Emergency (ER) | payer MEDICARE, OTHER ==
[~2019-12-13] VITALS: Ht 167.6 cm; Wt 86.2 kg
--- OUTSIDE RECORDS SUMMARY | 2019-12-13 17:56 | XMS ---
PreManage Notification: JEWEL ASHRAF Security Exercise Physiologist Events No recent Security Events currently on file CRITERIA MET - [facility] - Has Care Guidelines - History of Sepsis Dx - PDMP - [facility] - 2 Visits in 30 Days CARE PROVIDERS MEGAN THOMSON Nurse Practitioner 12/23/2018-Current PHONE: [phone] Name Unknown Clinic/Center 11/14/2019-Current PHONE: [phone] DR DAVIE BAHENA Primary Care Current PHONE: [phone] Elier Whiting MD PHONE: Unknown Marco has no Care Guidelines for this patient. Care History Medical/Surgical 12/23/2018 [facility] - PATIENT IS A [place] ELIGIBLE, \T\middot;\T\nbsp; PLEASE REFER PATIENT TO [facility] FOR NON EMERGENT MEDICAL NEEDS. \T\middot;\T\nbsp; [facility] CAN SEE PATIENTS SAME DAY FOR APTS IF PATIENT CALLS FIRST THING IN THE MORNING. E.D. VISIT COUNT (12 MO.) 5 [facility]. TOTAL 5 NOTE: Visits indicate total known visits. ED/UCC VISIT TRACKING (12 MO.) 12/13/2019 17:54 [facility] [place] TYPE: Emergency COMPLAINT: - POSSIBLE STROKE 12/03/2019 16:07 [facility] [place] TYPE: Emergency COMPLAINT: - SOB DIAGNOSES: - Other senior care (current) drug therapy - Shortness of breath - Allergy status to sulfonamides status - Allergy status to narcotic agent status - Sepsis, unspecified organism - Hypertensive heart disease with heart failure - Unspecified atrial fibrillation - Severe sepsis without septic shock - Heart failure, unspecified 12/02/2019 14:51 [facility] [place] TYPE: Emergency COMPLAINT: - CLAVICLE PAIN DIAGNOSES: - Fall on same level, unspecified, initial encounter - Allergy status to narcotic agent status - Contusion of left shoulder, initial encounter - Pain in left shoulder - Essential (primary) hypertension 11/13/2019 09:29 [facility] [place] TYPE: Emergency COMPLAINT: - PAIN 12/20/2018 12:39 [facility] TYPE: Emergency COMPLAINT: - CAT BITE DIAGNOSES: - Other injury of unspecified body region, initial encounter - Bitten by cat, initial encounter INPATIENT VISIT TRACKING (12 MO.) [facility] Internal Medicine DIAGNOSES: - Chronic kidney disease, stage 3 (moderate) - Acute on chronic systolic (congestive) heart failure - Acute upper respiratory infection, unspecified - sepsis, cardiogenic shock - Essential (primary) hypertension - Thrombocytopenia, unspecified - Other specified postprocedural states - Cardiogenic shock - Endocarditis, valve unspecified - Infection and inflammatory reaction due to cardiac valve pros 11/13/2019 09:30 [facility] [place] TYPE: Observation COMPLAINT: - POLYARTHRITIS DIAGNOSES: - Other senior care (current) drug therapy - Allergy status to narcotic agent status - Permanent atrial fibrillation - Polyarthritis, unspecified - Hyperuricemia without signs of inflammatory arthritis and top - Hypertensive heart disease with heart failure - Chronic systolic (congestive) heart failure - Gout, unspecified - [facility] (current) use of anticoagulants - Allergy status to sulfonamides status - Allergy status to other drugs, medicaments and biological sub - Polyneuropathy, unspecified [email or web address]
--- NOTE | 2019-12-13 21:02 | EKG ---
[facility] [address] [facility] [place] [address] Signed Atrial fibrillation with rapid ventricular response Left axis deviation Abnormal ECG When compared with ECG of 13-NOV-2019 09:44, T wave amplitude has increased in Anterior leads Nonspecific T wave abnormality now evident in Lateral leads Confirmed by DARWIN WILKINS MD ([id number]) on 12/13/2019 9:02:01 PM Electronically Signed By: DARWIN WILKINS MD 12/13/192101 PATIENT NAME: JEWEL ASHRAF Electrocardiogram DATE OF : 38 PHYSICIAN: DARWIN WILKINS MD REPORT #: [id number] REPORT IS CONFIDENTIAL AND NOT TO BE RELEASED WITHOUT AUTHORIZATION
== END 2019-12-13 21:47 | disposition short-term general hospital (02) ==
LOC: ED 17:53
PROC: 0T9B70Z Drainage of Bladder with Drainage Device, Via Natural or Artificial Opening (ICD-10-PCS; principal; 2019-12-13)
DX: A41.9 Sepsis, unspecified organism (principal); R65.21 Severe sepsis with septic shock; I48.91 Unspecified atrial fibrillation; I11.0 Hypertensive heart disease with heart failure; I50.9 Heart failure, unspecified; Z87.01 Personal history of pneumonia (recurrent); Z88.5 Allergy status to narcotic agent; Z88.6 Allergy status to analgesic agent; Z88.2 Allergy status to sulfonamides; Z88.8 Allergy status to other drugs, medicaments and biological substances; Z79.52 Long term (current) use of systemic steroids; Z79.899 Other long term (current) drug therapy
CPT/HCPCS: 51702; 70450; 71045; 80053; 83605; 83880; 84484; 85025; 85610; 85730; 93005; 93010; 96368; 99285-25; J2543; J3370; J7030; J7050; J7060

== ENCOUNTER 2020-08-13 16:54 | Observation (INO) | payer MEDICARE, OTHER ==
[~2020-08-13] VITALS: Ht 167.6 cm; Wt 79.0 kg
--- OUTSIDE RECORDS SUMMARY | 2020-08-13 16:58 | XMS ---
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 Care History Medical/Surgical 12/23/2018 [facility] - [facility]IENT [facility] ELIGIBLE, \T\middot;\T\nbsp; PLEASE REFER PATIENT TO [facility] FOR NON EMERGENT MEDICAL NEEDS. \T\middot;\T\nbsp; [facility] CAN SEE PATIENTS SAME DAY FOR APTS IF PATIENT CALLS FIRST THING IN THE MORNING. E.D. VISIT COUNT (12 MO.) 5 [facility] TOTAL 5 NOTE: Visits indicate total known visits. ED/UCC VISIT TRACKING (12 MO.) 08/13/2020 16:55 [facility] [place] TYPE: Emergency COMPLAINT: - RT LEG PURPLE AND DISHCHARGING 12/13/2019 17:54 [facility] [place] TYPE: Emergency COMPLAINT: - POSSIBLE STROKE DIAGNOSES: - Severe sepsis with septic shock - Disorientation, unspecified - Allergy status to other drugs, medicaments and biological substances - Hypertensive heart disease with heart failure - Allergy status to narcotic agent - Personal history of pneumonia (recurrent) - Unspecified atrial fibrillation - Sepsis, unspecified organism - Heart failure, unspecified - Allergy status to sulfonamides - novelty chain maker (current) use of systemic steroids - Allergy status to analgesic agent - [facility] drug therapy 12/03/2019 16:07 [facility] [place] TYPE: Emergency COMPLAINT: - SOB DIAGNOSES: - Other [facility] (current) drug therapy - Shortness of breath - Allergy status to sulfonamides - Allergy status to narcotic agent - Sepsis, unspecified organism - Hypertensive heart disease with heart failure - Unspecified atrial fibrillation - Severe sepsis without septic shock - Heart failure, unspecified 12/02/2019 14:51 [facility] [place] TYPE: Emergency COMPLAINT: - CLAVICLE PAIN DIAGNOSES: - Fall on same level, unspecified, initial encounter - Allergy status to narcotic agent - Contusion of left shoulder, initial encounter - Pain in left shoulder - Essential (primary) hypertension 11/13/2019 09:29 [facility] [place] TYPE: Emergency COMPLAINT: - PAIN INPATIENT VISIT TRACKING (12 MO.) [facility]2019 [facility] TYPE: Internal Medicine DIAGNOSES: - Severe sepsis with septic shock - 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, subsequent encounter - Essential (primary) hypertension - Sepsis, unspecified organism - Endocarditis, valve unspecified - Other cardiomyopathies - sepsis - skilled nursing (current) use of anticoagulants - Chronic systolic (congestive) heart failure 12/03/2019 20:29 [facility] DIAGNOSES: - Chronic kidney disease, stage 3 (moderate) - Acute on chronic systolic (congestive) heart failure - Acute upper respiratory infection, unspecified - sepsis, cardiogenic shock - Essential (primary) hypertension - Thrombocytopenia, unspecified - Other specified postprocedural states - Cardiogenic shock - Endocarditis, valve unspecified - 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, initial encounter 11/13/2019 09:30 [facility] [place] TYPE: Observation COMPLAINT: - POLYARTHRITIS DIAGNOSES: - Other [place] [facility] (current) drug therapy - Allergy status to narcotic agent - Permanent atrial fibrillation - Polyarthritis, unspecified - Hyperuricemia without signs of inflammatory arthritis and tophaceous disease - Hypertensive heart disease with heart failure - Chronic systolic (congestive) heart failure - Gout, unspecified - novelty chain maker (current) use of anticoagulants - Allergy status to sulfonamides - Allergy status to other drugs, medicaments and biological substances - Polyneuropathy, unspecified [email or web address]
[2020-08-13] MEDS ORDERED: TORSEMIDE20 MG PO (17:26)
[2020-08-13] MEDS ORDERED: ENTRESTO 24 MG1 EACH PO (17:28)
[2020-08-13] MEDS ORDERED: AVODART0.5 MG PO (17:29)
[2020-08-13] MEDS ORDERED: TOPROL XL50 MG PO (17:29)
[2020-08-13] MEDS ORDERED: METOLAZONE2.5 MG PO (17:29)
[2020-08-13] MEDS ORDERED: JANTOVEN3 MG PO (17:30)
--- NOTE | 2020-08-13 22:08 | NUR ---
ASSESSMENT VS AND I&O COMPLETED. GCS 15, A&O X4. PT IS SLOW TO ANSWER AND VERY BIG SANDY. LUNGS CLEAR, HEART TONES IRREGULAR. ABD SOFT, NONTENDER, PT STATES NORMAL, BOWEL TONES ACTIVE. IVs CDI, WNL, FLUSHED WELL. BLE HAVE 3+ PITTING EDEMA, CMS IS INTACT WITH WEAK MOVEMENT OF LEGS DUE TO EDEMA. P[T HAS LIMITED ROM IN BOTH SHOULDER RELATED TO A PREVIOUS EVENT. BLE ARE PAOLA, FLAKING AND DRY. RIGHT HERNANDEZ HAS COVERED BLISTER. SCHEDULED MED PROVIDED. NO OTHER NEEDS AT THIS TIME. CALL LIGHT IN REACH, BED ALARM ON.
--- NOTE | 2020-08-14 00:32 | NUR ---
PT RESTING IN BED, EYES CLOSED. RR EVEN, UNLABORED. CALL LIGHT IN REACH.
--- NOTE | 2020-08-14 02:17 | NUR ---
ASSESSMENT, VITALS AND I&O COMPLETED. GCS 15, A&O X4. LUNGS CLEAR, HEART TONES IRREGULAR. ABD SOFT, NONTENDER, BOWEL TONES ACTIVE. CMS INTACT. BLE 3+ EDEMA, RIGHT HERNANDEZ BLISTER COVERED. IVs WNL. PT EDUCATED ABOUT CALL LIGHT. PT OFFERED ICE WATER, DECLINED. NO OTHER NEEDS AT THIS TIME. CALL LIGHT IN REACH.
--- NOTE | 2020-08-14 02:18 | NUR ---
IN WITH RN TO TURN PT, GET VITALS, CHECK IF PT NEEDS TO VOID, PT WAS WET, ASST PT TO VOID INTO URINAL, CHANGED BED LINENS, NO FURTHER NEEDS AT THIS TIME
--- NOTE | 2020-08-14 04:00 | NUR ---
PT RESTING IN BED, EYES CLOSED. RR EVEN, UNLABORED. CALL LIGHT IN REACH.
--- NOTE | 2020-08-14 05:44 | NUR ---
PT SLEPT WELL. IV WNL. UOS, USING BEDSIDE URINAL. VSS. LUNGS CLEAR, HR IRREGULAR. BLE 3+ UNCHANGED. OPEN BLISTER ON RIGHT HERNANDEZ IS COVERED.
--- NOTE | 2020-08-14 05:49 | NUR ---
PT CALLED, NEED TO VOID, ASST PT WITH URINAL, VOIDED, PT STATES HE FEELS LIKE HE NEED TO GO MORE, SET UP URINAL FOR PT AND CAME BACK IN FIVE MINUTES, NO NEW VOID COLLECTED AT THIS TIME, TOLD PT THAT WE CAN TRY AGAIN WHEN WE GET HIM UP TO WEIGHT HIM, VITALS ARE ALSO DONE AT THIS TIME, NO FURTHER NEEDS AT THIS TIME
--- NOTE | 2020-08-14 07:25 | NUR ---
SHIFT REPORT FROM NURSE LÓPEZ. PT LAYING IN BED; REPORTS HE MUST VOID. PT USES URINAL WITH ASSISTANCE. NO FURTHER NEEDS AT THIS TIME.
--- NOTE | 2020-08-14 07:45 | NUR ---
PATIENT SLEEPING. WHITE BOARD UPDATED. CALL LIGHT WITHIN REACH. NO OTHER NEEDS AT THIS TIME
--- NOTE | 2020-08-14 08:48 | NUR ---
IN ROOM FOR MORNING MEDS AND TO PREPARE BREAKFAST FOR PT. PT WAS SLEEPING BUT WOKE EASILY. PT EATING WELL. VSS.
--- NOTE | 2020-08-14 09:30 | NUR ---
PATIENT RESTING IN BED. RN IN ROOM. VITAL SIGNS DONE BY RN. I&O DONE. CALL LIGHT WITHIN REACH. NO OTHER NEEDS AT THIS TIME
--- NOTE | 2020-08-14 09:53 | NUR ---
PT UP WITH PHYSICAL THERAPY TO AMBULATE. THIS RN TO ROOM. LINENS CHANGED. PT RETURNED FROM PHYSICAL THERAPY. PT UP TO CHAIR. WARM BLANKETS PROVIDED. PT DENIES ADDITIONAL REQUESTS OR COMPLAINTS. CALL LIGHT WITHIN REACH. PT EASILY VIEWED FROM NURSES STATION.
--- NOTE | 2020-08-14 10:46 | NUR ---
CHECKED IN ON pt. pt IS SLEEPING ON BACK. pt HAD BEEN UP TO TOILET EARLIER TO HAVE A BM. MISSED URINE IN TOILET. CALL LIGHT WITHIN REACH.
--- NOTE | 2020-08-14 11:46 | NUR ---
IN ROOM TO ADMINISTER ORDERED POTASSIUM. PT WAS SLEEPY BUT EASILY AROUSED TO TAKE PILLS. REFILLED 250ML WATER. CALL LIGHT WITHIN REACH
--- NOTE | 2020-08-14 13:15 | NUR ---
IN ROOM TO ADMINISTER IV LASIX. PT FINISHED EATING; WOULD LIKE TO NAP NOW. CALL LIGHT WITHIN REACH.
--- NOTE | 2020-08-14 13:23 | NUR ---
PATIENT RESTING IN BED, EYES CLOSED. VITAL SIGNS AND I&O DONE. CALL LIGHT WITHIN REACH. NO OTHER NEEDS AT THIS TIME
--- NOTE | 2020-08-14 15:03 | NUR ---
medications reconciled with caregiver daughter Supriya [phone]
--- NOTE | 2020-08-14 15:43 | NUR ---
CALL LIGHT ANSWERED. PT STATES THAT HE NEEDS TO VOID. PT HAD BEEN INCONTINENT OF URINE. PT ASSISTED TO CHAIR; BED REMADE. FOOTREST OF CHAIR UP, CALL LIGHT WITHIN REACH.
--- NOTE | 2020-08-14 15:52 | NUR ---
CALL LIGHT ANSWERED. URINAL USED TO VOID. WARM BLANKET PROVIDED. CALL LIGHT WITHIN REACH
--- NOTE | 2020-08-14 17:00 | EKG ---
[facility] [address] [facility] [place] [address] Signed Atrial fibrillation with rapid ventricular response with premature ventricular or aberrantly conducted complexes Inferior infarct , age undetermined Abnormal ECG When compared with ECG of 13-DEC-2019 18:17, Inferior infarct is now present Nonspecific T wave abnormality, worse in Inferior leads T wave amplitude has decreased in Anterior leads Nonspecific T wave abnormality no longer evident in Lateral leads Confirmed by CHARLA MOTT DO ([id number]) on 08/14/2020 5:00:28 PM Electronically Signed By: CHARLA MOTT DO 08/14/20 1700 PATIENT NAME: JEWEL ASHRAF Electrocardiogram DATE OF : 38 PHYSICIAN: CHARLA MOTT DO REPORT #: [id number] REPORT IS CONFIDENTIAL AND NOT TO BE RELEASED WITHOUT AUTHORIZATION
--- NOTE | 2020-08-14 17:10 | NUR ---
PATIENT SITTING UP IN CHAIR. VITAL SIGNS AND I&O DONE. PATIENT'S DINNER ORDERED. CALL LIGHT WITHIN REACH. NO OTHER NEEDS AT THIS TIME
--- NOTE | 2020-08-14 19:12 | NUR ---
RECEIVED REPORT FROM JUAN DURANT. pt RESTING IN CHAIR, EYES CLOSED, RESPIRATIONS REGULAR AND UNLABORED. WHITEBOARD UPDATED. CALL LIGHT WITHIN REACH.
--- NOTE | 2020-08-14 19:30 | NUR ---
IN RM TO HELP PT USE URINAL, WARM BLANKET PROVIDED, PT UP IN CHAIR AT THIS TIME, DENIES FURHTER NEEDS OR TO GET IN TO BED, PT OKAY WITH US COMING IN TO CHECK ON HIM LATER
--- NOTE | 2020-08-14 20:14 | NUR ---
PT CALLED, READY FOR BED, 1PA FWW, IN BED AT THIS TIME, WILL BE BACK IN RM TO GET VITALS, AND RN TO GIVE PM MEDS, NO FURTHER NEEDS AT THIS TIME
--- NOTE | 2020-08-14 20:45 | NUR ---
IN RM WITH RN TO GET VITALS AND I&Os, NO FURTHER NEEDS AT THIS TIME
--- NOTE | 2020-08-14 20:57 | NUR ---
IN TO ASSESS pt. RESTING IN BED. WOKE TO VOICE. DENIES PAIN AT THIS TIME. VITALS DONE. pt REQUESTED TO USE URINAL, ASSISTED. ASSESSMENT DONE. BANDAGE ON RIGHT CALF INTACT, DRY DRAINAGE NOTED. PITTING EDEMA UP TO THIGHS ON BOTH LEGS. MEDICATIONS GIVEN (SEE MAR). HR IRREGULAR. NO FURTHER REQUESTS AT THIS TIME. CALL LIGHT WITHIN REACH.
--- NOTE | 2020-08-15 00:40 | NUR ---
pt UP TO VOID AND BACK TO BED. INCONT OF URINE, NEW DEPENDS PROVIDED. ICE WATER PROVIDED NO FURTHER REQUESTS AT THIS TIME. CALL LIGHT WITHIN REACH.
--- NOTE | 2020-08-15 02:44 | NUR ---
ROUNDED ON pt. RESTING IN BED WITH EYES CLOSED, RESPIRATIONS REGULAR AND UNLABORED. CALL LIGHT WITHIN REACH.
--- NOTE | 2020-08-15 03:37 | NUR ---
CALL LIGHT ON. REQUESTED TO URINATE. pt DID NOT WANT TO GET OUT OF BED. CHANGED DEPENDS PER REQUEST, INCONT VOID. CALL LIGHT WITHIN REACH.
--- NOTE | 2020-08-15 05:42 | NUR ---
IN TO DO VITALS. pt WOKE TO VOICE. USED URINAL IN BED. INCONT. GOWN CHANGED. pt UP 2PA TO SCALE, WEIGHT RECORDED. VITALS AND I&O RECORDED. FRESH WATER PROVIDED. CALL LIGHT WITHIN REACH.
--- NOTE | 2020-08-15 05:45 | NUR ---
IN RM WITH RN TO GET VITALS, I&Os IN, ASST PT WITH URINAL, CHANGED PT'S GOWN FROM WETNESS, BOOSTED UP IN BED AT THIS TIME ALSO, NO FURTHER NEEDS AT THIS TIME
--- NOTE | 2020-08-15 06:19 | NUR ---
pt RESTED MOST OF NIGHT. LEGS WRAPPED PER ORDERS pt UNABLE TO WEAR SCDS. WOUND ON RIGHT LEG UNCHANGED, NO NEW DRAINAGE, COVERED. SBA FWW. USES CALL LIGHT APPROPRIATELY.
--- NOTE | 2020-08-15 07:40 | NUR ---
PATIENT SLEEPING. WHITE BOARD UPDATED. CALL LIGHT WITHIN REACH. NO OTHER NEEDS AT THIS TIME
--- NOTE | 2020-08-15 08:08 | NUR ---
pt sleeping at time of report. appears comfortable. call light in reach
--- NOTE | 2020-08-15 09:55 | NUR ---
PATIENT RESTING IN BED. RN IN ROOM. VITAL SIGNS AND I&O DONE. CALL LIGHT WITHIN REACH. NO OTHER NEEDS AT THIS TIME
[2020-08-15] MEDS ORDERED: TORSEMIDE20 MG PO (10:55)
--- NOTE | 2020-08-15 11:15 | NUR ---
PT REFUSES UP TO THE CHAIR HAS MORNING MEAL SITTING UPRIGHT IN BED. DR MOTT IN TO SEE PT
--- NOTE | 2020-08-15 14:04 | NUR ---
DAUGHTER ARRIVES TO TAKE PT HOME. REVIEWED UPCOMING LABS, MED CHANGES, AND NEED FOR HER TO CALL FOR F/U APPT. REVIEWED STOP LIGHT PROTOCOL AT LENGTH FOR CHF MANAGEMENT. DAUGHTER VERBALIZES UNDERSTANDING
== END 2020-08-15 13:50 | disposition home or self-care (01) ==
LOC: ED 16:54 → MS 16:56
PROVIDERS: ADMIT Student in an Organized Health Care Education/Training Program; ATTEND Student in an Organized Health Care Education/Training Program
DX: I11.0 Hypertensive heart disease with heart failure (principal); I50.23 Acute on chronic systolic (congestive) heart failure; N17.9 Acute kidney failure, unspecified; I48.21 Permanent atrial fibrillation; D64.9 Anemia, unspecified; M10.9 Gout, unspecified; Z87.01 Personal history of pneumonia (recurrent); Z79.52 Long term (current) use of systemic steroids; Z79.01 Long term (current) use of anticoagulants; Z88.5 Allergy status to narcotic agent; Z88.6 Allergy status to analgesic agent; Z88.8 Allergy status to other drugs, medicaments and biological substances; Z88.2 Allergy status to sulfonamides; Z88.1 Allergy status to other antibiotic agents; Z95.2 Presence of prosthetic heart valve; Z20.828 Contact with and (suspected) exposure to other viral communicable diseases
CPT/HCPCS: 36415; 80048; 80053; 82607; 82728; 82746; 83540; 83735; 83880; 84466; 84484; 85025; 85045; 85610; 86850; 86900; 86901; 93005; 93010; 96374; 96376; 97162; 99284-25; C9803; G0378; J1940; U0003

== ENCOUNTER 2020-11-10 16:25 | Inpatient (IN) | payer MEDICARE, OTHER ==
[~2020-11-10] VITALS: Ht 167.6 cm; Wt 78.3 kg
[~2020-11-10 16:25] MED LIST changes: +JANTOVEN3 MG PO; +METOLAZONE2.5 MG PO; +TOPROL XL50 MG PO; +TORSEMIDE20 MG PO
--- OUTSIDE RECORDS SUMMARY | 2020-11-10 16:28 | XMS ---
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 PHONE: [phone] Marco has no Care Guidelines for this patient. Care History Medical/Surgical 12/23/2018 [facility] - PATIENT IS A YELLOWHAWK ELIGIBLE, \T\middot;\T\nbsp; PLEASE REFER PATIENT TO [facility] FOR NON EMERGENT MEDICAL NEEDS. \T\middot;\T\nbsp; [facility] CAN SEE PATIENTS SAME DAY FOR APTS IF PATIENT CALLS FIRST THING IN THE MORNING. E.D. VISIT COUNT (12 MO.) [address] [facility] TOTAL 6 NOTE: Visits indicate total known visits. ED/UCC VISIT TRACKING (12 MO.) 11/10/2020 16:26 [facility] [place] TYPE: Emergency COMPLAINT: - R LEG WOUND, SWELLING BOTH LEGS 08/13/2020 16:55 [facility] [place] TYPE: Emergency [...] unspecified - Allergy status to sulfonamides - intermediate designer (current) use of systemic steroids - Allergy status to analgesic agent - Other manager terminal (current) drug therapy 12/03/2019 16:07 [facility] [...] - PAIN INPATIENT VISIT TRACKING (12 MO.) 08/13/2020 16:56 [facility] [place] TYPE: Observation COMPLAINT: - CHF/TAMELA DIAGNOSES: - Personal history of pneumonia (recurrent) - Acute on chronic systolic (congestive) heart failure - Allergy status to other antibiotic agents - Contact with and (suspected) exposure to other viral communicable diseases - penitentiary (current) use of anticoagulants - penitentiary (current) use of systemic steroids - Presence of prosthetic heart valve - Allergy status to analgesic agent - Hypertensive heart disease with heart failure - Allergy status to narcotic agent - Localized swelling, mass and lump, lower limb, bilateral - Anemia, unspecified - Allergy status to narcotic agent - Permanent atrial fibrillation - Allergy status to other antibiotic agents - Allergy status to other drugs, medicaments and biological substances - Acute kidney failure, unspecified - Allergy status to sulfonamides - Allergy status to sulfonamides - Gout, unspecified - Allergy status to analgesic agent - Allergy status to other drugs, medicaments and biological substances 12/13/2019 22:50 [facility] TYPE: Internal Medicine DIAGNOSES: - Severe sepsis with septic shock - 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, subsequent encounter - Essential (primary) hypertension - Sepsis, unspecified organism - Endocarditis, valve unspecified - Other cardiomyopathies - sepsis - penitentiary (current) use of anticoagulants - Chronic systolic (congestive) heart failure 12/03/2019 20:29 [facility] TYPE: Internal Medicine DIAGNOSES: - [...] valve prosthesis, initial encounter 11/13/2019 09:30 [facility] TYPE: Observation COMPLAINT: - POLYARTHRITIS DIAGNOSES: - Other manager terminal (current) drug therapy - Allergy status to narcotic agent - Permanent atrial fibrillation - Polyarthritis, unspecified - Hyperuricemia without signs of inflammatory arthritis and tophaceous disease - Hypertensive heart disease with heart failure - Chronic systolic (congestive) heart failure - Gout, unspecified - penitentiary (current) use of anticoagulants - Allergy status to sulfonamides - Allergy status to other drugs, medicaments and biological substances - Polyneuropathy, unspecified [email or web address]
--- NOTE | 2020-11-10 19:50 | NUR ---
Patient arrives to the unit via stretcher. Patient transfers to hospital bed with nursing staff assistance. Vital signs taken, assessment done. Bed weight taken, 86.7kg. Pitting edema noted in bilateral lower extremities. Patient HR in the 120s, BPs in the 90-100's systolic. Diaz catheter placed, 120 mls of urine returned. 1mg of IV bumex given, bumex gtt then initiated at 0.25mg/hr. Education begun regarding diuresis, fluid intake, and CHF - will continue to reinforce. Admission assessment ongoing. Warm blankets provided for patient comfort.
--- NOTE | 2020-11-10 21:00 | NUR ---
[place] box delivered for patient, water refreshed. Patient educated on 1600ml fluid restriction and 2gm sodium diet. Patient also educated on importance of daily weights with CHF. Patient eager to learn and states "I want to learn what I can do to feel better." No further needs, call light within reach.
--- NOTE | 2020-11-10 22:00 | NUR ---
Patient educated on use of incentive spirometer. Patient able to demonstrate proper technique of IS, volume of 1150 noted. Bumex gtt infusing at 0.25mg/hr. After using the IS, patient ready to turn lights off and go to sleep. Patient positioned for comfort, denies further needs. Call light within reach.
--- NOTE | 2020-11-10 22:45 | NUR ---
Three beats of vtach noted on cardiac rhythm. Patient sleeping in bed. BPs in the high 80's/low 90's systolic. Patient has 320mls of urine emptied. Called Dr. Love to update him on patient. Orders acknowledged, will continue to monitor.
--- NOTE | 2020-11-11 00:30 | NUR ---
Patient sleeping in bed, respirations even and unlabored. Call light within reach.
--- NOTE | 2020-11-11 00:54 | NUR ---
Patient sleeping in bed, respirations even and unlabored. HR in the 90-100's. Bumex gtt infusing at 0.25mg/hr. Diaz catheter emptied of 340 mls of yellow urine. Call light within reach.
--- NOTE | 2020-11-11 03:00 | NUR ---
Patient sleeping in bed, respirations even and unlabored. HR in the 90-100's. Patient rouses briefly and HR increases to 110's. Pillow placed under right hip to provide comfort, patient states feeling better. Falls asleep easily. HR decreases to 90's.
--- NOTE | 2020-11-11 04:45 | NUR ---
Patient HR beginning to sustain 120's with occassional increases to the 130's while patient is sleeping. Patient rouses to voice, reports feeling asymptomatic. Called Dr. Love to update him and orders acknowledged. 5mg of IV lopressor given, HR decreases to the 90's.
--- NOTE | 2020-11-11 05:00 | NUR ---
Lab in room for blood draw
--- NOTE | 2020-11-11 06:30 | NUR ---
Patient uses 2PA and FWW to get out of bed and take daily standing weight. Patient unsteady on feet. Patient returned to chair, warm blankets provided. Patient falls asleep easily in chair, call light within reach.
--- NOTE | 2020-11-11 07:00 | NUR ---
SHIFT REPORT FROM JEREMY MARTINEZ INCLUDED: pt came in from the ER last night and is being treated for a CHF exacerbation. pt has lower extremity edema, crackles in his lungs, and BNP lab of 1290 recently. pt has been pleasant and cooperative with cares through the night. pt is a two person heavy assist. pt in bed, breathing even and unlabored, VSS, on the monitors, table and call light within reach.
[2020-11-11] MEDS ORDERED: JANTOVEN2 MG PO (08:25)
[2020-11-11] MEDS ORDERED: K-TAB ER20 MEQ PO (08:26)
--- NOTE | 2020-11-11 08:26 | NUR ---
ASSESSMENT + MED PASS pt assessment complete, VSS (BP still soft at 93/67), o2sats 95% on RA. pt has coarse lung sounds, but no increased work of breathing at this time. 2+ pitting edema in both lower legs. pt denies pain and nausea at this time. pt able to take all meds without difficulty, as ordered. pt up to chair, and awaiting breakfast. table and call light within reach.
--- NOTE | 2020-11-11 08:29 | NUR ---
v/s done, pt washed. room picked up, bed done. breakfast ordered. no other needs at this time. call light with in reach
--- NOTE | 2020-11-11 09:21 | NUR ---
ROUNDING + BP REASSESS pts BP was not able to be read by the monitor while pt was moving his arms while eating breakfast. BP retaken at this time and was 85/71 (76). pt alert and cooperative with cares. pt denies further needs at this time. table and call light within reach.
--- NOTE | 2020-11-11 09:26 | NUR ---
Spoke with Juvenal. He states he lives alone with family living next door. He showers self, but family provide all other care of cooking, cleaning, shopping. He denies financial issues. He is aware of caring for self and tells RN when she offers breakfast, "it will depend on what you have for my diet". He uses a walker and a showered. States he has many children and grandchildren who assist him. Plans on dc to home when discharged.
--- NOTE | 2020-11-11 09:30 | NUR ---
MED PASS + MD TO BEDSIDE pts last BP was 85/71 (76) and HR in the 120s. MD Love ordered to give the 5mg of IV metoprolol at this time, admin verified by Dede MARTINEZ. MD to bedside, manual BP was taken on the right arm and left arm, manual BP was 86/50, monitor HR currently 95. pt alert and cooperative with cares at this time. pt expected to remain in hospital for a few more days. pt in chair, table and call light within reach.
--- NOTE | 2020-11-11 09:49 | NUR ---
PT BUMEX DRIP TITRATED TO 0.125 MG/HR PER BEDSIDE ORDER.
--- NOTE | 2020-11-11 10:04 | NUR ---
Called and spoke with pt's daughter Leonor. She confirms everything patient said. States she is not next door, but 7 minutes away. Pt has neighbors who are near. Everyone helps Juvenal. they deny any needs. Pt will dc to home when cleared for discharge. Pt [facility] go to [facility] every Wed for an INR.
--- NOTE | 2020-11-11 10:54 | NUR ---
ROUNDING pt resting in chair, eyes closed, breathing even and unlabored, table and call light within reach. o2sats 98% on RA, HR 97 and BP 92/68.
--- NOTE | 2020-11-11 12:00 | NUR ---
PATIENT UP TO COMMODE. responding to call light, pt needs to have BM. pt was unable to stand with 2PA and FWW from chair. pt hoyered to commode. pt able to have BM, sawyer care done. pt back to chair, positioned on pillows to comfort. pt denies further needs at this time. daughter at bedside. table and call light within reach.
--- NOTE | 2020-11-11 12:30 | NUR ---
CALLED MD TO UPDATE ON HR Dr Love called at this time and notified that pt was up and hoyered to commode about 15mins ago and once returned to his chair, his HR was between 115-130s. aware now. Will continue to monitor.
--- NOTE | 2020-11-11 13:30 | NUR ---
MED PASS pt HR in the 130s at this time, BP in the 110s systolic. pt given his 1400 dose of metoprolol at this time, as ordered. pt in chair, alert and cooperative with cares. pt does not have much of an appetite for lunch at this time. pt visiting with his daughter at this time. pt in chair, table and call light within reach. pts door and curtain open at this time, pt visible from nurses station.
--- NOTE | 2020-11-11 13:31 | EKG ---
[facility] [address] [facility] [place] [address] Signed Atrial fibrillation with rapid ventricular response Inferior infarct (cited on or before 13-AUG-2020) Abnormal ECG When compared with ECG of 13-AUG-2020 17:43, Nonspecific T wave abnormality now evident in Lateral leads Confirmed by DARWIN WILKINS MD ([id number]) on 11/11/2020 1:31:04 PM Electronically Signed By: DARWIN WILKINS MD 11/11/20 1331 PATIENT NAME: JEWEL ASHRAF Electrocardiogram DATE OF : 38 PHYSICIAN: DARWIN WILKINS MD REPORT #: [id number] REPORT IS CONFIDENTIAL AND NOT TO BE RELEASED WITHOUT AUTHORIZATION
--- NOTE | 2020-11-11 14:30 | NUR ---
ROUNDING pt resting in chair, breathing even and unlabored RR24, eyes closed. table and call light within. pt visible from nurses station.
--- NOTE | 2020-11-11 15:01 | NUR ---
pt being treated for CHF exacerbation. today pts lower extremities were edematous 3+ pitting edema, and seemed to decreased swelling to 2+ pitting edema. pt HR was in the 130s this morning, BPs in the 80s systolic, metoprolol 5mg given earlier than originally scheduled per MD Love orders. Resulted in pts HR staying in the 90s and BPs in the 110s systolic from about 9868-9183. pts HR returned to the 130s around 1230, stayed between 115-135 until around 1330 when second dose of metoprolol was given 7.5mgs. pts HR lowered to the 110s for about an hour, and have been between 115-125 since. pt voiding quantity sufficient, and had a BM today. pts family reports he has [id number] chair he uses at home and once he is standing, he is able to ambulate with FWW, but I cannot confirm that, as he was unable to stand and walk for us today with 2PA and FWW. chair steffany was needed. pt denied pain and nausea throughout the shift today.
--- NOTE | 2020-11-11 15:15 | NUR ---
Certified Heart Failure Nurse Notes: Patient is asleep. Recommend standard heart failure education per waitstaff. Recommendations prior to discharge: Document ambulation oxygen saturations prior to discharge Absence of orthostatic hypotension. Discharge weight less than admit weight. Discharge BNP less than admit (as per [facility] Heart Failure DC Bundle Patient does not currently qualify for cardiac rehabilitation but would be welcome for complimentary outpatient heart failure education. Will call patient post discharge. Business card left at bedside.
--- NOTE | 2020-11-11 16:00 | NUR ---
ASSESSMENT pt assessment complete, BP 89/57 (69), HR 115, o2sats in the mid to low 90s on RA. pt groggy and has been "resting" for hours now. pt rouses with auditory or physical stimuli but seems to fall back asleep within less than a minute. pt edema in lower extremities unchanged, urine output recorded. pt did not eat his lunch, prefered to sleep. pt repositioned in chair at this time. pt denies further needs, table and call light within reach, door open, pt visible from nurses station.
--- NOTE | 2020-11-11 17:00 | NUR ---
MED PASS pt vitals taken and documented. pt INR yesterday was 1.9, warfarin given per orders with some difficulty. pt was unable to swallow the pill, apparently due to grogginess- pt was able to swallow several sips of fresh water prior to taking tablet. when pt put tablet into his mouth he followed it with water but closed his eyes and failed to swallow the med, then reacted to it being in his mouth, grimaced, chewed slightly, grimaced harder, and proceeded to spit the pill out in pieces. pt given new tablet crushed into a bite of applesauce and was able to swallow it and several sips of water. pt in chair, breathing even and unlabored, table and call light within reach. pt door open, pt visible from nurses station.
--- NOTE | 2020-11-11 18:00 | NUR ---
MED PASS + DINNER + BED BATH pt able to take meds as ordered. pts HR decreased from 125 to 96 about 10 mins post metoprolol admin this evening. new bag and tubing of IV bumetandine drip hung and started. pt denies pain and nausea at this time, except when right arm is moved too much, then he cries out and complains of pain. bed bath done with cleansing wipes, pt unable to assist with cares. pt sawyer care done, cath-care done, and desitin cream and nystatin powder applied to groin area and inner thighs as needed. pt positioned in bed to comfort. pt dinner provided, feeding assisted by Dede MARTINEZ. pt in bed, semi fowlers, table and call light within reach.
--- NOTE | 2020-11-11 20:02 | NUR ---
SHIFT REPORT RECEIVED FROM JUAN COREY. PT WATCHING TV IN BED, SLEEPING OFF AND ON. ROOM AIR. BUMEX DRIP INFUSING. YING PATENT. CALL LIGHT WITHIN REACH.
--- NOTE | 2020-11-11 20:30 | NUR ---
ASSESSMENT COMPLETED. PT IS DROWSY, WAKES TO VOICE BUT FALLS ASLEEP BETWEEN CARE, IS ORIENTED ONLY TO SELF AT THIS TIME. DENIES PAIN. LUNGS CLEAR, DIM IN BASES, RA. HR IRREGULAR, RATE 90-105. BOWEL TONES ACTIVE. HE PATENT, CATH CARE PROVIDED. DESITIN AND NYSTATIN IN PLACE TO REDNESS IN GROIN. 3+EDEMA IN BLE, WEAK PERIPHERAL PULSES. DRESSING TO RLE C/D/I. IV INTACT, PATENT WITH BLOOD RETURN, BUMEX DRIP INFUSING AT 0.125 MG/HR. DENIES NEEDS AT THIS TIME, CALL LIGHT WITHIN REACH.
--- NOTE | 2020-11-11 22:28 | NUR ---
IN TO GIVE SCHEDULED MEDS PER EMAR. PT WOKE UP WHILE I WAS IN ROOM. WHILE ATTEMPTING TO REPOSITION BP CUFF, PT COMPLAINING OF PAIN IN RIGHT ARM-LIKELY FROM FREQUENT BP'S, MOVED BP CUFF TO LEFT ARM. PT REMAINS SOMEWHAT CONFUSED, WAS CALLING OUT FOR FAMILY MEMBERS, RE-ORIENTED HIM TO SURROUNDINGS AND HE BEGAN TO DOZE OFF AGAIN. HE EMPTIED.
--- NOTE | 2020-11-12 00:17 | NUR ---
ASSESSMENT COMPLETED. PT REPORTS FEELING HOT, AFEBRILE. REMOVED BLANKETS, DECREASED ROOM TEMP, AND PLACED COOL CLOTH ON FOREHEAD. REMAINDER OF ASSESSMENT UNCHANGED. HE EMPTIED. BUMEX CONTINUES AT SAME RATE. PT REPOSITIONED ONTO RIGHT SIDE WITH PILLOW SUPPORT. CALL LIGHT WITHIN REACH.
--- NOTE | 2020-11-12 02:17 | NUR ---
PT SLEEPING SOUNDLY AT THIS TIME, NO APPARENT DISTRESS. SCHEDULED LOPRESSOR HELD AT THIS TIME FOR MAP<60 (CURRENTLY 59.) HE EMPTIED. WILL CONTINUE TO MONITOR.
--- NOTE | 2020-11-12 04:15 | NUR ---
PT SLEEPING SOUNDLY AT THIS TIME, WILL DEFER ASSESSMENT TO ALLOW FOR REST.
--- NOTE | 2020-11-12 05:24 | NUR ---
PT AWAKE NOW, ASSESSMENT COMPLETED. UNCHANGED FROM PREVIOUS. ASSISTED PT TO REPOSITION IN BED. BED WEIGHT TAKEN PT WAS UNABLE TO STAND FOR DAY SHIFT YESTERDAY: 83.0KG. BUMEX DRIP CONTINUES AT PREVIOUS RATE. HE PATENT. IV INTACT AND PATENT. PT DENIES NEEDS, CALL LIGHT WITHIN REACH.
--- NOTE | 2020-11-12 07:45 | NUR ---
PT REORIENTED TO PLACE, THEN HAS QUESTIONS ABOUT WHY HE IS IN THE HOSPITAL. ALL QUESTIONS ANSWERED, MODERATE/MINIMAL UNDERSTANDING. PT CONTENT WITH CURRENT SITUATION. PT DENIES ANY NEEDS AT THIS TIME, DENIES PAIN, NAUSEA, AND SOB. VITALS REMAIN STABLE, PT ON ROOM AIR.
--- NOTE | 2020-11-12 09:20 | NUR ---
pt boosted up in bed to assist with eating breakfast and taking pills. pt able to swallow pills easily with pudding. pt able to feed self. son-in-law is at the bedside. pt is more alert to surroundings and event with family at the bedside. Family to bring in Entresto today.
--- NOTE | 2020-11-12 11:05 | NUR ---
PT'S SON-IN-LAW LEAVING TO GO HOME AND GET HOME MED FOR PT. PT SLEEPING SOUNDLY IN BED AT THIS TIME, ALL VITALS ARE STABLE.
--- NOTE | 2020-11-12 11:43 | NUR ---
PT STILL SLEEPING SOUNDLY IN BED WITH TV ON. ALL VITALS ARE STABLE, PT REMAINS ON ROOM AIR 97% O2 SATURATION.
--- NOTE | 2020-11-12 12:26 | NUR ---
BUMEX GTT STOPPED AT 1225 PER VERBAL ORDER FROM MD MOTT. WILL MONITOR VITALS AND OUTPUT THROUGH THE DAY.
--- NOTE | 2020-11-12 12:35 | NUR ---
FAMILY HAD JUST LEFT FROM VISITING PT. JUAN SCALES REQUESTED I LET PT REST. WILL FOLLOW AGAIN
--- NOTE | 2020-11-12 13:34 | NUR ---
NO CHANGE IN DISCHARGE PLAN. HIS PREFERENCE IS DISCHARGE HOME WITH FAMILY.
--- NOTE | 2020-11-12 14:43 | NUR ---
pt sleeping soundly at this time. all vitals wnl at this time.
--- NOTE | 2020-11-12 15:20 | NUR ---
PT ABLE TO SWALLOW PILLS EASILY WITH ENSURE. PT WAKES EASILY TO VERBAL STIMULI. PT DENIES PAIN, NAUSES, AND SOB. PT STILL SITTING UP IN CHAIR NAPPING WITH TV ON. CALL LIGHT IS WITHIN REACH. PT VITALS ARE WNL, NO LABORED BREATHING NOTED.
--- NOTE | 2020-11-12 18:05 | NUR ---
pt two person steffany lift from chair back to bed, pt zaheer well. lozano cath cares done, pt zaheer well. pt assisted with washing face with warm wash cloth. pt sitting up high in bed to assist with eating dinner. pt awake and able to feed himself.
--- NOTE | 2020-11-12 18:55 | NUR ---
PT ATE 100% OF HIS DINNER. DENTURES OUT OF MOUTH AND IN CUP SOAKING FOR OVERNIGHT.
--- NOTE | 2020-11-12 19:18 | NUR ---
SHIFT REPORT RECEIVED FROM JUAN MORENO. PT CURRENTLY RESTING IN BED WITH EYES CLOSED. IV SALINE LOCKED. HR:89 PER MONITOR. YING PATENT.
--- NOTE | 2020-11-12 20:36 | NUR ---
ASSESSMENT COMPLETED. PT SLEEPING, BUT WOKE EASILY TO VERBAL STIMULATION. DENIES PAIN. ORIENTED TO SELF AND SURROUNDINGS. LUNGS CLEAR, DIM IN BASES, RA. HR IRREGULAR, RATE 90'S, SCHEDULED METOPROLOL GIVEN. BOWEL TONES ACTIVE, DENIES TENDERNESS AND NAUSEA. EDEMA IMPROVING TO BLE, NOW 2+ WITH WRINKLES STARTING TO APPEAR. DRESSING TO RLE C/D/I. HE PATENT, CATH CARE PROVIDED. DESITIN AND DESENEX APPLIED TO GROIN FOLDS, PILLOW CASE PLACED IN FOLDS PER PT REQUEST/COMFORT. IV PATENT W/BLOOD RETURN, SALINE LOCKED, DRESSING INTACT. PT TOOK MEDS EASILY IN APPLESAUCE. PT DENIES NEEDS AT THIS TIME, CALL LIGHT WITHIN REACH.
--- NOTE | 2020-11-12 22:03 | NUR ---
IN TO CHECK URINE OUTPUT, PT RESTING IN BED WATCHING TV. DENIES NEEDS OR REQUESTS AT THIS TIME. VITAL SIGNS STABLE. CALL LIGHT WITHIN REACH.
--- NOTE | 2020-11-13 00:05 | NUR ---
ASSESSMENT COMPLETED, UNCHANGED. PT REMAINS AWAKE AND WATCHING TV. HE EMPTIED. DENIES REQUESTS AT THIS TIME, CALL LIGHT WITHIN REACH.
--- NOTE | 2020-11-13 02:29 | NUR ---
IN TO EMPTY HE. URINE NOW APPEARS TO HAVE BLOOD PRESENT, RED IN COLOR. IT DOES NOT APPEAR PT PULLED ON HE. PT REMAINS RESTING IN BED, OCCASIONALLY SLEEPING. VITAL SIGNS STABLE.
--- NOTE | 2020-11-13 04:16 | NUR ---
ASSESSMENT COMPLETED. URINE CONTINUES TO APPEAR RED IN COLOR. SMALL AMOUNT OF BLOOD NOTED AT [facility], NO CLOTS NOTED IN HE TUBING. REMAINDER OF ASSESSMENT REMAINS UNCHANGED. PT DENIES REQUESTS AT THIS TIME.
--- NOTE | 2020-11-13 06:24 | NUR ---
PT INCONTINENT OF STOOL. PERICARE AND NEW LINENS PROVIDED. ATTENDS PLACED ON PT. URINE IS APPEARING MORE BLOODY AND IS LEAKING AROUND CATHETER FROM MEAT[facility]. SMALL CLOT NOTED IN CATHETER TUBING. DR. MOTT UPDATED AND ORDER ORDER RECEIVED FOR UA, SENT AT THIS TIME.
--- NOTE | 2020-11-13 07:55 | NUR ---
PATIENT AWAKE IN BED. WAITING FOR BREAKFAST. CALL LIGHT WITHIN REACH. NO FURTHER NEEDS AT THIS TIME.
--- NOTE | 2020-11-13 07:58 | NUR ---
REPORT FROM Delicia ARZOLA RN. PATIENT RESTING IN BED WITH EYES CLOSED. RESPIRATIONS EVEN AND UNLABORED AT THIS TIME. HE REMAINS IN PLACE, DARK RED URINE NOTED. ALLOWED TO REST.
--- NOTE | 2020-11-13 08:03 | NUR ---
REPORT RECIEVED BY [id number]. PATIENT APPEARS ASLEEP IN BED WITH THE APPEARANCE OF BLOODY URINE DRAINING FROM THE CATHETER. BED RAILS UP X2. CALL LIGHT WITHIN REACH.
--- NOTE | 2020-11-13 08:20 | NUR ---
ASSESSMENT COMPLETED. PATIENT VERY GROGGY AND FALLING ASLEEP IN BETWEEN SENTENCES. DENIES PAIN AT THIS TIME. URINE IS DARK RICHARD IN HE BAG. DEMONSTRATING SLIGHT RIGHT SIDED WEAKNESS. PATIENT DENIES PAIN AT THIS TIME. CALL LIGHT WITHIN REACH.
--- NOTE | 2020-11-13 08:32 | NUR ---
PATIENT WORKING WITH PHYSICAL THERAPY. ASSISTED TO THE CHAIR WITH MAX ASSISTANCE.
--- NOTE | 2020-11-13 08:48 | NUR ---
SITTING UP IN RECLINER. ASSESSMENT COMPLETED. DIFFICULTY HEARING. SOME CONFUSION NOTED. VERBAL ORDER READ BACK DR. MOTT/Hema BECK, RN, TO HOLD TODAY'S DOSE OF COUMADIN DUE TO BRIGHT RED, BLOODY URINE.
--- NOTE | 2020-11-13 08:53 | NUR ---
PATIENT LINENS CHANGED AND AM CARE DONE. EATING BREAKFAST. CALL LIGHT WITHIN REACH NO FUTHER NEEDS AT THIS TIME.
--- NOTE | 2020-11-13 09:46 | NUR ---
PAIENT RESTING QUIETLY WHILE SITTING UP IN THE CHAIR. CATH AND ANAYELI CARE PERFORMED. CHAIR WHEELS LOCKED. CALL LIGHT WITHIN REACH. PATIET DENIES PAIN OR FURTHER NEEDS AT THIS TIME.
--- NOTE | 2020-11-13 10:15 | NUR ---
SITTING UP IN RECLINER. RESPIRATIONS EVEN AND UNLABORED. CALL LIGHT IN REACH. EYES CLOSED. ALLOWED TO REST.
--- NOTE | 2020-11-13 10:53 | NUR ---
URINE COLOR MUCH IMPROVED WITH PINK TINGED, URINE IN CATHETER TUBING.
--- NOTE | 2020-11-13 11:02 | NUR ---
PATIENT RESTING QUIETLY IN RECLINER. DENIES PAIN AND NEEDS AT THIS TIME. CHAIR WHEELS LOCKED. CALL LIGHT WITHIN REACH.
--- NOTE | 2020-11-13 11:45 | NUR ---
PATIENT ASSISTED TO BEDSIDE COMMODE. CONTINENT OF STOOL REQUESTS TO RETURN TO RECLINER. RETURNS TO RECLINER. HE CATHETER REMAINS IN PLACE. URINE COLOR CONTINUES TO CLEAR.
--- NOTE | 2020-11-13 12:21 | NUR ---
PATIENT WAS UP TO [facility] WITH MAX ASSISTANCE AND HAD A LARGE BOWEL MOVEMENT. PATIENT IS CURRENTLY SITTING IN RECLINER EATING LUNCH AND DENIES PAIN AT THIS TIME. CHAIR WHEELS LOCKED. CALL LIGHT WITHIN REACH. PATIENT DENIES FURTHER NEEDS AT THIS TIME.
--- NOTE | 2020-11-13 13:22 | NUR ---
Report to JUAN Napier.
--- NOTE | 2020-11-13 13:28 | NUR ---
Taken to room 111 from room 129 in recliner by NATALIYA Lambert, and nursing program manager.
--- NOTE | 2020-11-13 14:03 | NUR ---
PATIENT TRANSFERED FROM CCU 129 TO MS 111. PATIENT IS RESTING QUIETLY IN RECLINER WITH THE WHEELS LOCKED AND CALL LIGHT WITHIN REACH. ASSESSMENT COMPLETED. PATIENT IS GROGGY AND FALLS ASLEEP BETWEEN SENTENCES AND ACTIVITIES. EDEMA IMPROVING WITH WRINKLING ON LOWER EXTREMITIES. PATIENT DENIES PAIN AND FURTHER NEEDS AT THIS TIME.
--- NOTE | 2020-11-13 14:36 | NUR ---
HE CATHETER DC'd. PATIENT REPORTED DISCOMFORT DURING REMOVAL. THICK DRAINAGE NOTED, SLIGHTLY PURULENT. THOROUGH PERICARE PROVDED. PATIENT EDUCATION PROVIDED REGARDING VOIDING AND THE NEED TO CALL WHEN HE FEELS THE URGE. FAMILY AT THE BEDSIDE, ALSO ENCOURAGED TO NOTIFIY STAFF WHEN PATIENT FEELS THE URGE TO VOID. CALL LIGHT WITHIN REACH. CHAIR WHEELS LOCKED. PATIENT DENIES FURTHER NEEDS AT THIS TIME.
--- NOTE | 2020-11-13 16:02 | NUR ---
PATIENT VOIDED 150 USING THE URINAL WITH ASSISTANCE WITH MINIMAL DISCOMFORT. PATIENT DENIES PAIN AT THIS TIME. CHAIR WHEELS LOCKED. CALL LIGHT WITHIN REACH. FAMILY AT THE BEDSIDE. DENIES FURTHER NEEDS AT THIS TIME.
--- NOTE | 2020-11-13 17:37 | NUR ---
THIS RN REVIEWED [facility] BREAST SPLITTER APARNA'S CHARTING. THIS RN AGREED WITH HER CHARTING AND ASSESSMENTS
--- NOTE | 2020-11-13 17:58 | NUR ---
Patient began the shift in CCU and was transfered to MS 111 this afternoon. Upon arrival to the department the patient's lozano catheter was discontinued and removed. Patient then voided 150ml around 1600 with minimal discomfort. Family has been at the bedside off and on throughout the day. Patient has been up in the chair for the majority of the day, requiring 2 person max assist for transfers. Before the lozano was removed the patient was draining jayleen to bright red urine, afternoon coumadin dose held for risk of bleeding. IV site in left AC saline locked. Patient prefers pills in applesauce. Does not always call for needs, requiring more frequent rounding.
--- NOTE | 2020-11-13 19:30 | NUR ---
WITH TWO OTHER FORDER OPERATOR AND THIS FORDER OPERATOR, IN TO 3PA PIVOT PT TO THE BED FROM THE CHAIR, 2PA CHANGED PT ATTENDS, NO FURTHER NEEDS
--- NOTE | 2020-11-13 21:45 | NUR ---
IN TO GET VITALS, RN IN RM
--- NOTE | 2020-11-14 00:38 | NUR ---
JUAN MERINO AND I ASSISTED PATIENT WITH DEPENDS AND CHUCKS CHANGE. FRESH GOWN PROVIDED. CALL LIGHT IN REACH. NO FUTHER NEEDS AT THIS TIME.
--- NOTE | 2020-11-14 02:24 | NUR ---
IN TO ASST PT WITH THE URINAL, FIXED BLANKETS AND ADJUSTED BED POSITION, NO FURHTER NEEDS
--- NOTE | 2020-11-14 03:23 | NUR ---
CALL LIGHT ON x3, - PT REQUESTING MORE PILLOWS NEXT TO R LEG, UNDER BOTH ELBOWS, AND UNDER L SHOULDER, - HELPING PT WITH CALL LIGHT, - PT ASKING THE TIME, PT AFFIRMING NO FURTHER NEEDS AT THIS TIME,
--- NOTE | 2020-11-14 04:15 | NUR ---
resting, awakes easily, confused at times, reoriented, repositioned, uses call light,
--- NOTE | 2020-11-14 05:43 | NUR ---
In bed, turned Q2H, R sided resisudl deficit and LE weakness, edema LE, legs elevated, Incontinent of urine draining light jayleen colored urine, plus used urinal x2. SL patent. lungs dim at bases IS at bedside, on room air. QAWALANGIN, slow response, intermittent confusion. Hoyerlift-3PA FWW transfer, tolerating fluid restriction well. daily weight is 82KG bed with 2 pillows and regular bedding
--- NOTE | 2020-11-14 07:40 | NUR ---
this rn recieved report from varsha duron. pt appears to be resting at this time with shallow respirations noted.
--- NOTE | 2020-11-14 09:31 | NUR ---
this rn in pts room to give pt his morning meds. pt laying in bed and has no concerns this am. pt not receptive pt education about why he is on a fluid restriction
--- NOTE | 2020-11-14 14:00 | NUR ---
THIS RN IN PTS ROOM TO CHECK ON PT, GIVE PT AFTERNOON MEDS AND DO ASSESSMENT. PT TOOK MULTIPLE CUING TO TAKE MEDS, PT CHOOSE TO CHEW HIS POTASSIUM PILLS. PT DENIES PAIN ALTHOUGH HE GRONS IN HIS SLEEP. PT UP TO CHAIR AT THIS TIME AND IS POSTITIONED WITH PILLOWS ON PRESSURE POINTS
--- NOTE | 2020-11-14 21:13 | NUR ---
talked to daughter Leonor about his care and her concerns were addressed. CM to cll her in am P#[phone]
--- NOTE | 2020-11-14 21:41 | NUR ---
Pt in bed, coop, repositioned and turned in bed, Incontinent of urine. skin care done. clean attends in place, legs elevated. On room air, luns dim at bases, clear, takes shallow breaths, sats WNL. no SOB noted with exertion. no cough at this time. Desitin ointment and Desenex powder to periarea. bruised are L hip resolving, decreaed edema LE noted. 2+, elevated, R sided defici present. good cms, SL patent. tolerating fluid restrictions. told that I had talked to his daugther Leonor, did not wanted to call her. HOB up, no c/o pain except of discomfort l jake when reposioned, then stated Grupo better not w the pillow under by back. call light at hands reach
--- NOTE | 2020-11-14 21:45 | NUR ---
V/S AND I&O'S TAKEN AND RECORDED. PATIENT IS CLEANED FROM URINE INCONTINENT AND PUT FRESH ATTENDS. PATIENT IS REPOSITIONED.
--- NOTE | 2020-11-15 01:59 | NUR ---
Resting, on room air, eyes closed, no distress. call light at hands reach
--- NOTE | 2020-11-15 04:38 | NUR ---
Daily bed weight 80.1 kg. slept, on room air, lungs dim at bases. R sided deficiencies. edema LE bilat 2+, elevated. Has been incontinent of large amounts of urine. tolerating 1600 fluid restriction. KOTLIK, has been pleasant and coop. call light at hands reach. Turned Q2H
--- NOTE | 2020-11-15 07:42 | NUR ---
this rn received report from varsha duron. pt appears to be resting comfortalby at this time with call light within reach and respirations noted
--- NOTE | 2020-11-15 07:50 | NUR ---
PATIENT IS SLEEPING, WILL MOVE OVER TO CHAIR WHEN BREAKFAST COMES
--- NOTE | 2020-11-15 09:15 | NUR ---
THIS RN IN PTS ROOM TO ASSESS PT, GIVE MORNING MEDS. PT STATES THAT HIS BREATHING IS FINE AND THAT HE HAS SOME PAIN IN UPPER ARMS
--- NOTE | 2020-11-15 10:31 | NUR ---
SPOKE WITH SRINATH MARTINEZ [facility]. PATIENT WAS LAST SEEN 11/12/20 AND NO NEW APPOINTMENTS PENDING. HE HAD INR DRAWN WITH PHARMACY AND THEY ANSWERED SOME QUESTIONS REGARDING WARFARIN DOSING. SHE STATES PATIENT LIVES ALONE [address] BUT HAS A DAUGHTER WHO IS VERY ACTIVE IN COMING OVER TO HELP HIM.
--- NOTE | 2020-11-15 11:45 | NUR ---
PATIENT SLEEPING WITH HOB UP IN BED. PATIENT VERY HARD TO WAKE UP, OPENS EYES AND DOES NOT ANSWER QUESTIONS. NODS HEAD. ASKED IF I SHOULD CALL HIS DAUGHTER, BUT HE WENT BACK TO SLEEP QUICKLY. STAFF STATES THIS HAS BEEN HIS NORMAL HERE.
--- NOTE | 2020-11-15 12:15 | NUR ---
PATIENT HAD FAMILY WHO JUST LEFT ROOM, STAFF STATES IT IS NOT HIS DAUGHTER. THEY STATE SHE IS IN [place] AND CANNOT BE REACHED TODAY.
--- NOTE | 2020-11-15 14:00 | NUR ---
this rn to see pt and give him his afternoon meds. pt appears to be drowsy and only responds to his name when this rn uses a deep voice. pt has been drowsy all day, pts daughter remarked that he appeared more drowsy today and that he wasn't as talkative today
--- NOTE | 2020-11-15 14:14 | NUR ---
PT ASLEEP, WAKES TO SOUND OF MY VOICE. PT STRUGGLED TO SPEAK, BUT DID TELL ME HE DID NOT FEEL GOOD.ASKED PT IF I COULD PRAY FOR HIM,HE KNODDED HIS HEAD YES GAVE ENCOURAGEMENT, WILL FOLLOW
--- NOTE | 2020-11-15 18:46 | NUR ---
THIS RN NOTIFIED THAT PT HAS A 101.8 TEMP AND THAT [facility] CAME BACK. NO ORDERS GIVEN
--- NOTE | 2020-11-15 18:54 | NUR ---
THIS RN IN PTS ROOM TO GET PT BACK TO BED AND CHANGE PT. PTS FACE APPEARS FLUSHED AND PT IS HOT TO TOUCH. THIS RN CHECKED PTS TEMP. 101.8. THIS RN TO CALL
--- NOTE | 2020-11-15 19:40 | NUR ---
BEDSIDE REPORT RECEIVED FROM JUAN BERMUDEZ. pt RESTING IN BED WITH EYES CLOSED, BREATHING UNLABORED. LAB NOTIFIED VIA TELEPHONE ORDER, TO COME TO FLOOR TO DRAW LABS.
--- NOTE | 2020-11-15 20:40 | NUR ---
V/S AND I&O'S TAKEN AND CHARTED. CHANGED PATIENT'S INCONTINENT ATTENDS. 2PA. JUAN VALERIO WAS WITH PATIENT.
--- NOTE | 2020-11-15 21:29 | NUR ---
IN pt ROOM TO ASSIST WITH LAB DRAW. LABS DRAWN BY THIS RN. IV SITE INFILTRATED, LEAKING, NEW IV LEFT FOREARM 22 GAUGE. pt DROWSY, AWAKENS TO VOICE, OPENS EYES. DOES NOT ANSWER ORIENTATION QUESTIONS. DENIES PAIN. ABLE TO SWALLOW PO MEDICATIONS CRUSHED IN APPLE SAUCE. IV ANTIBIOTIC INFUSING WNL AT THIS TIME. REORIENTATION PROVIDED. BED ALARM SET FOR pt SAFETY.
--- NOTE | 2020-11-16 00:10 | NUR ---
pt SLEEPING. AWAKENS TO VOICE. REPOSITIOND WITH PILLOWS UNDER BOTH HIPS. pt CLOSES EYES. LIGHTS OFF IN ROOM.
--- NOTE | 2020-11-16 02:55 | NUR ---
PATIENT'S INCONTINENT ATTENDS CHANGED 2PA. PATIENT REPOSITIONED.
--- NOTE | 2020-11-16 03:00 | NUR ---
pt SLEEPING, AWAKENS TO VOICE. INCONTINENCE IN ATTENDS, ATTENDS CHANGED. REPOSTIONED WITH 2PA HIGHER IN BED AND PILLOW UNDER RIGHT HIP, LEGS ELEVATED. ASSESSMENT COMPLETE. EDEMA IMPROVED, BLE. AFEBRILE. pt MORE ALERT FROM START OF SHIFT, ORIENTED TO SELF, , LOCATION "HOSPITAL". REORIENTATION PROVIDED TO DATE, EVENT. CALL LIGHT IN REACH.
--- NOTE | 2020-11-16 05:56 | NUR ---
pt MORE AWAKE IN MORNING HOURS. ORIENTED TO PERSON, , LOCATION OF HOSPITAL. PAIN IN LEFT ARM. REPOSITIONED Q2H. INCONTINENT OF LARGE VOIDS THROUGHOUT SHIFT. ATTENDS IN PLACE AND CHANGED. IV SL. BLOOD CULTURES AND IV ANTIBIOTICS THIS SHIFT. pt RESTED WELL. NOT OUT OF BED, KIM LIFT.
--- NOTE | 2020-11-16 06:11 | NUR ---
pt AWAKE AFTER LAB DRAW. VSS. INCONTINENT OF URINE, ATTENDS CHANGED. pt IS AWAKE, ALERT. REQUESTING ICE WATER, PROVIDED REQUESTED. [employer] ON TV REQUESTED. CALL LIGHT WITHIN REACH.
--- NOTE | 2020-11-16 09:16 | NUR ---
Patient stting up in bed watching tv. No distress noted. Personal supplies and call light. No needs at this time. Close to RN station. Report provided to JUAN Koo as she will take over patient care.
--- NOTE | 2020-11-16 10:05 | NUR ---
Attempted to speak with pt, he is very slow to answer. I will contact his daughter Leonor.
--- NOTE | 2020-11-16 10:19 | NUR ---
ASSESSMENT COMPLETE. pt HAD JUST AMBULATED TO CHAIR WITH 2PA BY PT LORE AND EDDIE. pt SITTING UP IN CHAIR. IVF STARTED PER ORDER. MORNING MEDS PER EMAR; pt REFUSED LIDOCAINE PATCH. BOWEL TONES ACTIVE, LUNG SOUNDS CLEAR UPPER, DIMINISHED BASES. GROIN FOLD REDNESS APPEARS MINIMAL. pt WAS INCONTINENT OF URINE; ONE BLUE DEPENDS. pt FINISHED ENSURE. BLE EDEMA TRACE. ALLEVYN STILL INTACT ON R HERNANDEZ. CALL LIGHT AND BEDSIDE TABLE WITHIN REACH; NO FURTHER NEEDS AT THIS TIME.
--- NOTE | 2020-11-16 11:09 | NUR ---
Attempted to call daughter, Leonor, . Asked if she could call me when available to discuss plan for Juvenal. Asked if she would like him to go to a SNF or home with family to stay with him and HH for PT. Pt is at this time a 2 person assist and will require assistance in the home for ALDS.
--- NOTE | 2020-11-16 12:15 | NUR ---
Spoke with pt's son and as I received a partial message from Leonor. I belive she stated pt would like to go to [facility]. Spoke with Fotu and pt, pt is now stating he would like to go to [facility]. He was there a year ago in Aug and and would like to return for PT. Contacted [facility] and they have a bed open. Faxed chart: Face sheet, covid test, H&P and progress notes, PT/OT evals notes, medication list.
--- NOTE | 2020-11-16 12:49 | NUR ---
pt's SON IN ROOM, CAME TO DOOR AND STATED THAT pt NEEDED TO VOID. 2PA HEAVY ASSIST TO BSC; pt HAD LARGE SOFT BM WITH URINE MIXED IN. pt BACK IN CHAIR, LEGS ELEVATED. CALL LIGHT WITHIN REACH. NO FURTHER NEEDS AT THIS TIME.
--- NOTE | 2020-11-16 14:47 | NUR ---
pt UP IN CHAIR, SLEEPING INTERMITTENTLY. pt's SON IN ROOM. NO APPARENT SIGNS OF DISTRESS. pt WITHIN VIEW OF NURSES STATION .
--- NOTE | 2020-11-16 16:30 | NUR ---
IN ROOM TO ADMINISTER 1600 MEDS. pt's SON IN ROOM, pt RESTING IN CHAIR. pt IS RESPONSIVE AND ANSWERS APPROPRIATELY. NO FURTHER NEEDS AT THIS TIME. CALL LIGHT WITHIN REACH
--- NOTE | 2020-11-16 16:30 | NUR ---
Received call from Kellie at [facility]. They will accept Mr Lara to [facility] tomorrow. Will notify Dr. Selby.
--- NOTE | 2020-11-16 17:56 | NUR ---
pt ASSISTED BACK TO BED, 2P HEAVY ASSIST WITH FWW. pt WAS TOO DROWSY TO EAT DINNER; pt ANSWERS APPROPRIATELY. IV ANTIBIOTICS HUNG. ASSESSMENT COMPLETE. pt REPORTS THAT HE "DOESNT HAVE PAIN THIS TIME". pt INCONTINENT OF URINE; DEPENDS REINFORCED WITH ANJANA PAD. DENTURES OUT, CALL LIGHT WITHIN REACH. NO FURTHER NEEDS AT THIS TIME.
--- NOTE | 2020-11-16 18:12 | NUR ---
rapid swab collected
--- NOTE | 2020-11-16 19:25 | NUR ---
BEDSIDE REPORT RECEIVED FROM JUAN DURANT. pt RESTING IN BED WITH EYES CLOSED. BREATHING UNLABORED. CALL LIGHT AND PERSONAL SUPPLIES WITHIN REACH.
--- NOTE | 2020-11-16 22:14 | NUR ---
PHONE CALL TO MD, NOTIFIED OF LOW BP, PER MD OKAY TO ADMINISTER SCHEDULED MEDICATOINS FOR RATE CONTROL. pt NOT SYMPTOMATIC, AWAKENS TO VOICE EASILY.
--- NOTE | 2020-11-16 22:20 | NUR ---
pt SLEEPING, AWAKENS TO VOICE. ORIENTED TO PERSON AND AT THIS TIME. pt [place], CONVERSING. ASKING QUESTIONS TO WHY IN HOSPITAL, REORIENTATION PROVIDED. pt CLOSES EYES OFF AND ON WHILE RN AND MANAGER FLOOR IN ROOM. REPOSITIONED WITH 2PA IN BED. ATTENDS CHANGED, INCONTINENT VOID. BP 99/56 (66), REASSESSED AFTER REPOSITIONING, 88/69, MANUAL BP 90/50. MD PHONED SEE PREVIOUS NOTE. pt ABLE TO SWALLOW PO MEDICATIONS WHOLE. CALL LIGHT IN REACH. LIGHTS AND TV OFF PER pt REQUEST.
--- NOTE | 2020-11-16 22:53 | NUR ---
ASSISTED PRIMARY RN TEODORO MORGAN PATIENT'S INCONTINENT ATTENDS. PATIENT REPOSITIONED.
--- NOTE | 2020-11-17 01:15 | NUR ---
pt SLEEPING, AWAKENS TO VOICE FOR REPOSITIONING. ATTENDS DRY. VOID IN URINAL WITH RN ASSIST. REPOSITIONED WITH PILLOWS UNDER HIPS BILATERALLY. LIGHTS OFF IN ROOM. NO ADDITIONAL REQUESTS.
--- NOTE | 2020-11-17 03:50 | NUR ---
CHECKED ON pt. RESTING IN BED WITH EYES CLOSED. BREATHING EQUAL AND UNLABORED. LIGHTS OFF IN ROOM.
--- NOTE | 2020-11-17 06:30 | NUR ---
CALL LIGHT ANSWERED, pt AWAKENS, REQUESTING WATER. ALLOTTED ICE WATER PROVIDED. pt INCONTINENT IN ATTENDS, CHANGED. REPOSTIONED IN BED. VS COMPLETE. ASSESSMENT COMPLETE. ORIENTED TO PERSON, PLACE. REORIENTATION TO EVENT, DATE PROVIDED. CALL LIGHT IN REACH. LIGHTS OFF IN ROOM.
--- NOTE | 2020-11-17 07:36 | NUR ---
Patient resting in bed, respirations even and non labored. Patient has no distress noted. Personal supplies and call light within reach. Close to RN station.
--- NOTE | 2020-11-17 09:30 | NUR ---
Spoke with Kellie from [facility]. Updated I will send orders as soon as they are completed.
--- NOTE | 2020-11-17 10:44 | NUR ---
Blood pressure reading retaken as last one was documented as low. bp satisfactory at this time; bp 103/60, p91, map 69. Patient doing well at this time working with OT. No needs. Call light within reach of patient.
[2020-11-17] MEDS ORDERED: CEPHALEXIN500 M1 PO (11:19)
[2020-11-17] MEDS ORDERED: METOPROLOL TART50 MG PO (11:22)
--- NOTE | 2020-11-17 11:50 | NUR ---
Received orders. Spoke with Supri[facility] and [facility]. They would like pt to transport per van. Prescriptions, PASSR, covid test, and orders faxed to [facility]. Texted Kellie and updated I have scheduled transport for 1300. Asked her to call if this does not work for them. Received reply they need and rx for [place] and transport is ok. Dr. Selby notified and will write RX. Rx placed in envelope to go to [facility].
--- NOTE | 2020-11-17 12:20 | NUR ---
RN report called to JUAN Omalley at [facility]. All questions answered.
== END 2020-11-17 13:03 | DRG 291 ==
LOC: ED 16:25 → CCU 19:34 → MS 11-13 13:30
PROVIDERS: ADMIT Internal Medicine; ATTEND Internal Medicine
DX: I50.23 Acute on chronic systolic (congestive) heart failure (principal); G93.41 Metabolic encephalopathy; T83.511A Infection and inflammatory reaction due to indwelling urethral catheter, initial encounter; N39.0 Urinary tract infection, site not specified; I48.19 Other persistent atrial fibrillation; N17.9 Acute kidney failure, unspecified; Z20.822 Contact with and (suspected) exposure to COVID-19; I50.82 Biventricular heart failure; N40.0 Benign prostatic hyperplasia without lower urinary tract symptoms; E79.0 Hyperuricemia without signs of inflammatory arthritis and tophaceous disease; G62.9 Polyneuropathy, unspecified; N18.32 Chronic kidney disease, stage 3b; R31.9 Hematuria, unspecified; Z66 Do not resuscitate; Z95.3 Presence of xenogenic heart valve; Z79.899 Other long term (current) drug therapy; Z79.01 Long term (current) use of anticoagulants; Z88.8 Allergy status to other drugs, medicaments and biological substances; Z88.2 Allergy status to sulfonamides; Z88.5 Allergy status to narcotic agent; Z88.6 Allergy status to analgesic agent
CPT/HCPCS: 36415; 71045; 80048; 80053; 81001; 82607; 82728; 82746; 83540; 83735; 83880; 84466; 84484; 85025; 85045; 85610; 93005; 93010; 97110; 97116; 97163; 97167; 97530; 97535; 99285-25; A9270; C9803; J0696; J1940; J3490; J7070; U0003

== ENCOUNTER 2020-12-28 17:13 | Inpatient (IN) | payer MEDICARE, OTHER ==
[~2020-12-28] VITALS: Ht 167.6 cm; Wt 76.6 kg
[~2020-12-28 17:13] MED LIST changes: +CEPHALEXIN500 M1 PO; +JANTOVEN2 MG PO; +K-TAB ER20 MEQ PO; +METOPROLOL TART50 MG PO
--- OUTSIDE RECORDS SUMMARY | 2020-12-28 17:16 | XMS ---
PreManage Notification: JEWEL ASHRAF Security [employer] Events No recent Security Events currently on file CRITERIA MET - [facility] - Has Care Guidelines - History of Sepsis Dx - PDMP CARE PROVIDERS [facility]enseHON[facility]ENT[facility]io aka [employer]. \F\ [facility] travayl[place] PHONE: [phone] MEGAN THOMSON Practitioner 12/23/2018-[facility] PHONE: [phone] [facility] 11/14/2019-[facility] PHONE: [phone] Marco has no Care Guidelines for this patient. Care History Medical/Surgical 12/23/2018 [facility] - PATIENT IS A [facility] ELIGIBLE, \T\middot;\T\nbsp; PLEASE REFER PATIENT TO [facility] FOR NON EMERGENT MEDICAL NEEDS. \T\middot;\T\nbsp; [facility] CAN SEE PATIENTS SAME DAY FOR APTS IF PATIENT CALLS FIRST THING IN THE MORNING. E.D. VISIT COUNT (12 MO.) 3 [facility] [place] TOTAL 3 NOTE: Visits indicate total known visits. ED/UCC VISIT TRACKING (12 MO.) 12/28/2020 17:14 [facility] [place] TYPE: Emergency COMPLAINT: - CONFUSSION 11/10/2020 16:26 [facility] [place] TYPE: Emergency COMPLAINT: - R LEG WOUND, SWELLING BOTH LEGS/ NON INJ 08/13/2020 16:55 [facility] [place] TYPE: Emergency COMPLAINT: - RT LEG PURPLE AND DISHCHARGING INPATIENT VISIT TRACKING (12 MO.) 11/10/2020 19:34 [facility] [place] TYPE: Medical Surgical COMPLAINT: - CHF DIAGNOSES: - Chronic kidney disease, stage 3b - residential (current) use of anticoagulants - Allergy status to narcotic agent - Allergy status to analgesic agent - Urinary tract infection, site not specified - Acute kidney failure, unspecified - Acute on chronic systolic (congestive) heart failure - Allergy status to sulfonamides - Presence of xenogenic heart valve - Hematuria, unspecified - Hyperuricemia without signs of inflammatory arthritis and tophaceous disease - Other persistent atrial fibrillation - Allergy status to other drugs, medicaments and biological substances - Biventricular heart failure - Other roasterman (current) drug therapy - Benign prostatic hyperplasia without lower urinary tract symptoms - Metabolic encephalopathy - Infection and inflammatory reaction due to indwelling urethral catheter, initial encounter - Polyneuropathy, unspecified - Do not resuscitate 08/13/2020 16:[address] [facility] [place] TYPE: Observation COMPLAINT: - CHF/TAMELA DIAGNOSES: - Personal history of pneumonia (recurrent) - Acute on chronic systolic (congestive) heart failure - Allergy status to other antibiotic agents - Contact with and (suspected) exposure to other viral communicable diseases - residential (current) use of anticoagulants - residential (current) use of systemic steroids - Presence [...] to other drugs, medicaments and biological substances [email or web address]
[2020-12-28] MEDS ORDERED: PROBIOTIC1 EAC1 PO (18:10)
[2020-12-28] MEDS ORDERED: TRAMADOL HCL50 MG PO (18:11)
--- NOTE | 2020-12-28 21:11 | EKG ---
[facility] [address] [place] [address] Signed Atrial fibrillation Possible Inferior infarct (cited on or before 13-AUG-2020) Abnormal ECG When compared with ECG of 10-NOV-2020 17:26, Vent. rate has decreased BY 38 BPM T wave inversion now evident in Anterior leads Confirmed by CHARLA MOTT DO ([id number]) on 12/28/2020 9:11:05 PM Electronically Signed By: CHARLA MOTT DO 12/28/202110 PATIENT NAME: JEWEL ASHRAF Electrocardiogram DATE OF : 38 PHYSICIAN: CHARLA MOTT DO REPORT #: [id number] REPORT IS CONFIDENTIAL AND NOT TO BE RELEASED WITHOUT AUTHORIZATION
--- NOTE | 2020-12-28 21:15 | NUR ---
PT ADMITTED TO ROOM 121 FROM ED,@ 1050. 4 STAFF ASSIST IN MOVING TO BED FROM STRETCHER. RA, HEARING AIDE PRESENT RIGHT EAR. DENTURES UPPER AND LOWER, INCONT BRIEF ON WITH SOILED CLOTHES PER [facility], IN BAG IN THE CLOSET. UNABLE TO SAY WHERE HE IS AT. IS FROM [facility].
--- NOTE | 2020-12-28 22:40 | NUR ---
PATIENT FOUND TO HAVE PULLED IV. NEW IV PLACED. PATIENT IS INCOTINENT. PATIENTS ATTEND CHANGED AND ANAYELI CARE COMPLETED. PATIENT DENIES ANY PAIN. PATIENTS VITALS TAKEN AND RECORDED. PICS TAKEN AND PLACED IN CHART OF PATIENTS RIGHT LOWER EXT AND ALLEVYN PLACED ON SKIN BREAKDOWN. PATIENT ALSO HAS BREAKDOWN NOTED ON BUTTOCCKS ALLEVY PLACED. PATIENT HAS SCATTERED SCABS THAT APPEAR TYO BE FROM SCRATCHINGT. PATIENT IS ONLY ABL TO STATED HIS BIRTHDAY. PATIENT IS ON RA. PATIENTS EVENING MEDICATIONS GIVEN PER ORDER. CALL LIGHT IN REACH.
--- NOTE | 2020-12-28 22:43 | NUR ---
CHANGED BED LINEN, GOWN AND DID ANAYELI CARE. DENTURE UPPER AND LOWER ARE SOAKED IN THE CONTAINER. PATIENT REPOSITIONED. 2 PA. PATIENT HAD A FEW BITES OF JELLO. PATIENT ABLE TO DRINK WATER FROM THE CUP WITH STRAW. PRIMARY RN IS WITH PATIENT.
--- NOTE | 2020-12-29 00:49 | NUR ---
PATIENT IS RESTING IN BED WITH EYES CLOSED, RR 17. CALL LIGHT IN REACH.
--- NOTE | 2020-12-29 01:47 | NUR ---
PATIENTS VITALS TAKEN AND RECORDED. PATIENTS ATTEND CHANGED. PATIENT WAS INCONTINENT OF STOOL AND URINE. PATIENT REPOSITIONED IN BED. NO NEEDS NOTED. CALL LIGHT IN REACH.
--- NOTE | 2020-12-29 06:22 | NUR ---
PATIENTS VITALS TAKEN AND PATIENTS OXYGEN SATURATION FOUND TO BE 87%. PATIENT PLACED ON 1L VIA NC AND SATS IMPROVED QUICKLY. PATIENTS ATTEND CHANGED. PATIENT WAS INCONTINENT OF URINE AND STOOL. PATIENT DENIES ANY PAIN. PATIENT PROVIDED WITH FRESH ICE WATER. NO FURTHER NEEDS NOTED. CALL LIGHT IN REACH. BED ALARM ON FOR SAFETY.
--- NOTE | 2020-12-29 06:23 | NUR ---
PATIENT IS ON A 2GM NA LIMIT DIET. PATIENT HAS AN ORDER TO WORL WITH PT/OT. PATIENT IS ON 1L VIA NC. PATIENT IS ONLY ORIENTED TO HIS WON BIRTHDAY. PATIENT HAS MULTIPLE SCABS FROM SCRATCHING. ALLEVYN PLACED ON PATIENTS RIGHT HERNANDEZ X2 DUE TO SKIN BREAK DOWN. PATIENT HAS HEEL PROTECTORS ON. PATIENT DOES NOT USE CALL LIGHT. BED ALARM ON FOR SAFERTY.
--- NOTE | 2020-12-29 07:12 | NUR ---
PATIENT HAS CRITICAL LAB VALUE. REPORTED VALUE TO MD. NO NEW ORDERS AT THIS TIME.
--- NOTE | 2020-12-29 07:28 | NUR ---
REPORT RECIEVED FROM PROGRAM MANAGER ENVIRONMENTAL PLANNING RNELBA.
--- NOTE | 2020-12-29 07:43 | NUR ---
MORNING ASSESSMENT COMPLETED. PATIENT IN BED AND RESTING. PATIENT CONTINUES TO BE CONFUSED, ALLOWED ASSESSMENT.
--- NOTE | 2020-12-29 09:18 | NUR ---
Updated notes sent to [facility] as requested.
--- NOTE | 2020-12-29 09:32 | NUR ---
DR. MOTT IN TO SEE PATIENT, BLOOD CONSENT SIGNED AND WITNESSED. IVF RATE INCREASED TO 125 ML/HR. PATIENT GIVEN ENSURE AFTER BREAKFAST.
--- NOTE | 2020-12-29 09:38 | NUR ---
PATIENTS AM CARE DONE AND GOWN JEAN MARIE LINEN CHANGED. NOTHING ELSE FOR NOW
[2020-12-29] MEDS ORDERED: METOPROLOL TA37.5 MG PO (10:22)
[2020-12-29] MEDS ORDERED: TORSEMIDE20 MG PO (10:23)
--- NOTE | 2020-12-29 11:19 | NUR ---
PATIENT INCONTINENT OF URINE, SOFT LARGE BM. ATTENDS IN PLACE, UNIT 1 BLOOD TRANSFUSING AND PATIENT IS TOLERATING WELL.
--- NOTE | 2020-12-29 11:43 | NUR ---
THIS RN INTO ROOM TO COMPLETE CASE MANAGEMENT ASSESSMENT ACCOMPANIED BY TJ MARTINEZ. PATIENT SITTING IN BED. ATTEMPTED TO COMPLETE ASSESSMENT THOUGH DIFFICULT DUE TO PATIENT DEMENTIA. PATIENT STATES HE LIVES ALONE THOUGH RECENTLY HE WAS PLACED AT [facility]. PATIENT STATES HE DOES NOT USE DME OF ANY TYPE, BUT HE DOES FEEL THAT A WALKER WOULD BE HELPFUL. FURTHER QUESTIONING OF THE PATIENT PROVED TO BE DIFFICULT DUE TO DEMENTIA AND PATIENT BEING HARD OF HEARING. WILL CONTACT [facility] FOR FURTHER EVALUATION.
--- NOTE | 2020-12-29 12:19 | NUR ---
PRBC UNIT 2 STARTED AT 1215.
--- NOTE | 2020-12-29 12:40 | NUR ---
MANUAL BY TAKEN OF
--- NOTE | 2020-12-29 13:37 | NUR ---
Pt Currently resides at [facility], but believes he lives at home. Spoke with staff at [facility] and per staff, pt has increased care needs. He is assist with dressing, shower, getting in and out of bed, he is able to feed self with assistance. Per Kellie,, pt may return to [facility] when discharged.
--- NOTE | 2020-12-29 14:21 | NUR ---
PATIENT IS FINISHED WITH SECOND UNIT OF BLOOD. BP IS 97/60 MANUALLY. PATIENT HAS REMAINED ON ROOM AIR ALL DAY WITH 85-100% SATS.
--- NOTE | 2020-12-29 18:46 | NUR ---
PATIENT RESTING IN BED
--- NOTE | 2020-12-29 19:44 | NUR ---
RECEIVED REPORT FROM DAY SHIFT RN. PATIENT IS RESTING IN BED DRINKING JUICE. NO NEEDS NOTED. CALL LIGHT IN REACH. BED ALARM ON FOR SAFETY.
--- NOTE | 2020-12-29 21:20 | NUR ---
ASSISTED PRIMARY RN ELBA. WIPED/CLEANED PATIENT. PATIENT IS INCONTINENT BOWEL AND URINE. CHANGED GOWN. PATIENT REPOSITIONED. BED ALARM ON FOR SAFETY.
--- NOTE | 2020-12-29 21:30 | NUR ---
PATIENT ASSESMENT COMPLETED. PATIENT HAS BM SMEARED ON HIS HANDS AND BED. PATIENT GIVEN BED BATH. PATIENTS BEDDING CHANGED. PATIENTS ATTEND CHANGED AND ANAYELI CARE COMPLETED. PATIENTS VITALS TAKEN AND RECORDED. PATIENTS INTAKE AND OUPUT RECORDED. IV INFUSING PER ORDER. PATIENTS EVENING MEDICATIONS GIVEN PER ORDER. PATIENT DENIES ANY PAIN. PATIENT IS ABLE TO STATE DATE OF AND THAT HE IS IN THE HOSPITAL PATIENT IS UNABLE TO STATE DATE OR TIME. PATIENT REPOSITIONED IN BED. NO FURTHER NEEDS NOTED. CALL LIGHT IN REACH.
--- NOTE | 2020-12-29 22:41 | NUR ---
PATIENTS BED ALARM WAS ALERTING STAFF THAT PATIENT WAS TRYING TO GET OUT OF BED. PATIENT REPOSITIONED IN BED. ATTEMPTED TO REORIENT TO PLACE, TIME, AND EVENT. EDUCATED PATIENT THAT IT IS NIGHT TIME. NO NEEDS NOTED. CALL LIGHT IN REACH. BED ALARM ON FOR SAFETY.
--- NOTE | 2020-12-30 03:51 | NUR ---
PATIENT IS RESTING IN BED WITH EYES CLOSED, RR 17. CALL LIGHT IN REACH. BED ALARM ON FOR SAFETY.
--- NOTE | 2020-12-30 05:21 | NUR ---
PATIENTS ATTEND CHANGED AND ANAYELI CARE COMPLETED. PATIENT WAS INCONTINENT OF STOOL AND URINE. PATIENT REPOSITIONED IN BED. PATIENT DENIES ANY PAIN. PATIENTS VITALS TAKEN AND RECORDED. PATIENTS INTAKE AND OUPUT RECORDED. PATIENT ASK WHERE HE WAS. REORIENTED PATIENT TO TIME, PLACE, EVENT, AND DATE. PATIENT ASKED "WHEN CAN I GO HOME". EDUCATED PATIENT ON HOSPITAL STAY. PATIENT DENIES ANY FURTHER NEEDS. PATIENT IS RESTING IN BED WATCHINGT TV. CALL LIGHT IN REACH. BED ALARM ON FOR SAFETY.
--- NOTE | 2020-12-30 05:30 | NUR ---
PATIENT RESTED WELL THROUGHOUT THE SHIFT. PATIENT IS ON A 2GM NA DIET, TOLERATING IT WELL, AND NO NAUSEA NOTED. PATIENT IS ON RA. PATIENT IS INCONTINENT. PATIENT IS WORKING WITH PT/OT. PT RECOMMENDED PATIENT BE A 1PA W/FWW. PATIENT HAS NOT BEEN OUT OF BED THIS SHIFT. PATIENT HAD MULTIPLE LOOSE, SOFT BMS. PATIENT IS CONFUSED AT TIMES AND REQUIRES REORIENTING OFTED. BED ALARM ON FOR PATIENT SAFETY. IV INFUSING PER ORDER.
--- NOTE | 2020-12-30 06:03 | NUR ---
PATIENT ASSISTED A 2PA W/FWW PIVOT TO [facility]. PATIENT WAS ABLE TO VOID AND HAD A LOOSE BM. PATIENT IS BACK IN BED RESTING. PATIENT DENIES ANY NEEDS. CALL LIGHT IN REACH.
--- NOTE | 2020-12-30 07:45 | NUR ---
patient was resting in the bed didnt want to get up. warm wash cloth offered and refused. call light within reach. no further needs at this time.
--- NOTE | 2020-12-30 09:01 | NUR ---
PATIENT WOKE UP TO GIVE MEDICATIONS, DOES NOT WANT TO EAT BREAKFAST YET, TOLD NURSE, "YOU ARE A PEST, STOP WAKING ME UP." PATIENT GIVEN 2 WARM BLANKETS AT THIS TIME.
--- NOTE | 2020-12-30 09:08 | NUR ---
PATIENT IS NOW SITTING UP IN BED TO EAT BREAKFAST.
--- NOTE | 2020-12-30 09:30 | NUR ---
REPORT RECEIVED FROM NIGHT RN AND PT. CARE RESUMED. P.T. AND FACILITY OPERATIONS MANAGER PRESENT ASSISTING WITH AMBULATION. 2PA WITH FWW TO CHAIR. CRACKLES PRESENT IN BILAT. IN BASES OF LUNGS AND AUDIBLE WHEEZES PRESENT WITH EXERT. PEDAL PULSES WEAK AND +2 EDMA PRESENT BLE. BOWEL TONES ACTIVE. PT. DENIES PAIN AND TENDERNESS. PT. CONFUSED AND ANSWERS TO QUESTIONS ARE INAPPROPRIATE. ORIENTED TO SELF ONLY. IV SITE WNL AND FLUSHES. PT. LEFT RESTING IN CHAIR WITH ALARM ON AND CURTAIN OPEN.
--- NOTE | 2020-12-30 09:59 | NUR ---
Updated notes faxed to [facility] per request.
--- NOTE | 2020-12-30 15:00 | NUR ---
Spoke with pt and Dr. Jacques. Plan remains for pt to return to [facility] Sunday or Sunday depending on how well pt does. I called and spoke with Kellie from [facility] and they are unable to take pts on Sunday, due to staffing. Discussed return on Sunday and they will accept. Spoke with pt and he is smiling and say, "Hi". He is very hard of hearing, denies pain. Believes he lives at home with his family. Not aware he currently resides at [facility].
--- NOTE | 2020-12-30 15:00 | NUR ---
PATIENT UP IN THE CHAIR ALERT AND ORIENTED TO SELF ONLY. IV SITE WNL AND IVF RUNNING. FINE CRACKLES AUSCULTATED IN BILAT. BASES OF LUNGS. EDEMA IN BLE UNCHANGED. RIGHT LEG COOL AND PEDAL PULSE THREADY BILAT. FEET STRENGTH WEAK AND UNABLE TO PUSH OR PULL WITH THEM. PT. DENIES PAIN. LEFT RESTING IN CHAIR WITH CALL LIGHT IN REACH.
--- NOTE | 2020-12-30 16:33 | NUR ---
PT. HERE FOR METABOLIC ENCEPHALOPATHY AND TAMELA. CONFUSED AND INAPPROPRIATE RESPONSES TO QUESTIONS AT TIME. NOT SURE HOW MUCH IS BASELINE OR NEW ONSET AT ADMISSION. AMBULATES 2PA AND FWW. WEAKENED. +2 EDEMA BLE. FINE CRACKLES IN BASES OF LUNGS ALL DAY. ALLEVYN ON BACK OF RIGHT CALF FOR SKIN TEAR. PT. EATING AND DRINKING WELL. INCONTINENT AND ATTENDS IN PLACE. LARGE LOOSE STOOLS- HOLD STOOL MEDS.
--- NOTE | 2020-12-30 19:20 | NUR ---
SHIFT REPORT RECEIVED FROM DAYSHIFT RN HERMINIA AT BEDSIDE, pt RESTING QUIETLY IN BED. EYES CLOSED, RR EVEN AND UNLABORED, NO DISTRESS NOTED. BED ALARM ON FOR SAFETY, CALL LIGHT IN REACH. BOARD ALSO UPDATED AT THIS TIME.
--- NOTE | 2020-12-30 20:30 | NUR ---
PERSON TO NOTIFY AND SON-IN-LAW FOTU AT RN STATION ASKING TO SEE pt. FOTU EXPLAINS HIS AND pt's REMAINING CHILDREN WERE UNAWARE pt WAS ADMITTED TO HOSPITAL UNTIL TODAY AND HAS BEEN TRYING TO CALL [facility] IN THE WEEK BUT WAS UNABLE TO GET THROUGH. UPDATE PROVIDED ON pt, QUESTIONS ANSWERED. pt REMAINS RESTING QUIETLY IN BED WITH EYES CLOSED, RR EVEN AND UNLABORED. CALL LIGHT IN REACH AND BED ALARM ON.
--- NOTE | 2020-12-30 21:55 | NUR ---
IN TO GET PT VITALS, WITH RN, CHANGED PT ATTENDS AND CHUXS, DENTURE CARE COMPLETE, PT RINCED MOUTH, NO FURTHER NEEDS AT THIS TIME
--- NOTE | 2020-12-30 21:57 | NUR ---
ASSESSMENT COMPLETE, VSS. HEART SOUNDS IRREGULAR, NO DISTRESS NOTED. pt INCONTINENT OF LARGE AMOUNT URINE AND BM X1. JUAN ARREOLA AND NATALIYA HOGAN IN ROOM TO COMPLETE ANAYELI CARE, CLEAN ATTENDS IN PLACE. pt ALSO BOOSTED IN BED. IV SITE WNL, FLUIDS INFUSING PER MD ORDERS. EASILY FLUSHES. NO FURTHER NEEDS, CALL LIGHT IN REACH.
--- NOTE | 2020-12-31 01:00 | NUR ---
pt AWAKE AND YELLING "HEY" FROM BED, NATALIYA HOGAN IN ROOM TO ASSIST pt AND SEE IF ATTENDS ARE WET. CALL LIGHT IN REACH. NO DISTRESS NOTED.
--- NOTE | 2020-12-31 01:05 | NUR ---
in to change pts attends and chux with help of second placement specialist, no further needs
--- NOTE | 2020-12-31 01:50 | NUR ---
pt HEARD COUGHING FROM RN STATION, pt STATES, "THE SALIVA GOT STUCK". HOB ELEVATED, ASSESSMENT COMPLETE. NO CHANGES TO LUNG SOUNDS. IV FLUIDS REMAIN INFUSING PER MD ORDERS, SITE WNL. URINAL USED PER pt REQUEST, 200MLS OUTPUT NOTED. ATTENDS DRY. NO FURTHER NEEDS, CALL LIGHT IN REACH. BED ALARM ON FOR SAFETY.
--- NOTE | 2020-12-31 05:38 | NUR ---
pt HAD A ZORAN, BED ALARM ON FOR SAFETY. PLEASANT AND INTERACTIVE WITH STAFF. VSS. RECEIVING IV FLUIDS, IV SITE WNL. INCONTINENT OF URINE, MULTIPLE BM'S. 2GM SODIUM DIET, TOLERATING WELL. NO NAUSEA OR PAIN REPORTED.
--- NOTE | 2020-12-31 05:50 | NUR ---
PT REPOSITIONED TO RIGHT SIDE, PILLOW SUPPORT. BRIEF CHANGED, CHUX CHANGED, ANAYELI CARE DONE. NO FURTHER ASSISTANCE NEEDED AT THIS TIME.
--- NOTE | 2020-12-31 06:48 | NUR ---
PT IS DRY, REPOSITIONED TO SUPINE. PT NEEDS NO FURTHER ASSISTANCE AT THIS TIME.
--- NOTE | 2020-12-31 08:30 | NUR ---
REPORT RECEIVED FROM NIGHT RN AND PT. CARE RESUMED. PT. IS ALERT AND UP IN BED FOR BREAKFAST. ORIENTED TO SELF ONLY AND ANSWERS TO QUESTIONS ARE INAPPROPRIATE. IV SITE WNL AND FLUSHES. HEEL PROTECTORS IN PLACE. +2 EDEMA PRESENT BLE AND AREA IS FLAKING, DRY AND DARKENED. PT. INCONTINENT AND VOIDING QS. HEART RHYTHM AND PULSE IRREGULAR. ASSISTED PT. WITH REPOSITIONING. PT. LEFT RESTING IN BED WITH CALL LIGHT IN REACH.
--- NOTE | 2020-12-31 08:43 | NUR ---
PATIENT RESTING WITH EYES CLOSED. WOKE TO VOICE. FACE AND HANDS WASHED. DENTURED WASHED AND IN. SITTING UP FOR BREAKFST. CALL LIGHT IN REACH, NO OTHER NEEDS AT THIS TIME
--- NOTE | 2020-12-31 09:45 | NUR ---
2PA , PATIENT TRANSFERED FROM BED TO CHAIR, USING FWW AND GAIT BELT, PATIENT TOLERATED WELL. LINENS AND GOWN CHANGED, CALL LIGHT IN REACH
--- NOTE | 2020-12-31 12:24 | NUR ---
PT ASLEEP, DID NOT DISTURB. WILL FOLLOW
--- NOTE | 2020-12-31 14:45 | NUR ---
Attempted to see pt and daughter x 2, daughter on phone and then going to a meeting. Called daughter when I returned to room as Rn states she had to return to work. Called and spoke with daughter. UPdated I received word this morning from RN, family did not want pt to return to [facility]. Daughter states this is not true and she has never said this. Pt. needs PT and must return. She also states she is very upset as family was not notified patient was admitted, pt also received blood and he is a [employer] per the daughter. I apologized and let her know I will complete an incident report. Plan with daughterat this time is for Pt. to return to [facility] on Sunday to continue rehab. I will call daughter on Sunday.
--- NOTE | 2020-12-31 14:59 | NUR ---
PATIENT DISCHARGED TO [facility] AND LEFT VIA WHEELCHAIR WITH TRANSPORTER AND . LEFT WITH ALL BELONGINGS.
--- NOTE | 2020-12-31 16:31 | NUR ---
PATIENT'S BRIEF CHANGED AND SATURATED WITH URINE AND LOOSE BM. BEDDING AND ATTEND CHANGED. SMALL SKIN INJURY NOTED ON BUTTOCK AREA UNCHANGED FROM PREVIOUS ASSESSMENT. BARRIER CREAM APPLIED AND PT. REPOSITIONED TO LEFT SIDE. FOAM DRESSING PEELED OFF OF RT. CALF. REDRESSED. PT. LEFT RESTING WITH CALL LIGHT IN REACH.
--- NOTE | 2020-12-31 16:52 | NUR ---
PATIENT UP TO THE BATHROOM WITH 2PA AND FWW. TOLERATED WELL AND BACK IN BED.
--- NOTE | 2020-12-31 18:23 | NUR ---
PT. HERE FOR ACUTE KIDNEY INJURY POSSIBLY RELATED TO DEHYDRATION. AMBULATED IN THE HALLS AND TO THE BATHROOM WITH 2PA AND FWW. +1 EDEMA PRESENT IN BLE. PT. CONTINUES TO BE CONFUSED AND ONLY ORIENTED TO SELF, WITH MOMENTS OF CLARITY. IV FLUSHES WELL AND S.L. INCONTINENT WITH ATTENDS IN PLACE AND SEVERAL LARGE VOIDS AND 1 LARGE, LOOSE, BM. PT. NOT EATING WELL TODAY. HR IRREGULAR. .25CM SKIN INJURY ON INNER BUTTOCK REMAINS UNCHANGED. FOAM DRESSING CAME OFF RIGHT CALF AND REDRESSED.
--- NOTE | 2020-12-31 18:39 | NUR ---
UP IN CHAIR, REFUSED DINNER, REPORTS FEELY DIZZY, JUAN HOPE NOTIFIED, ASSESSED. VITALS AND I&OS CHARTED.
--- NOTE | 2020-12-31 19:00 | NUR ---
SHIFT REPORT RECEIVED FROM DAYSHIFT RN HERMINIA AT BEDSIDE. pt AWAKE AND RESTING IN CHAIR, RR EVEN AND UNLABORED. NO DISTRESS NOTED, CALL LIGHT IN REACH.
--- NOTE | 2020-12-31 21:30 | NUR ---
DAUGHTER STEVE ON PHONE ASKING FOR pt UPDATE. THIS RN ASKED pt IF I COULD GIVE UPDATE, pt SAYS OKAY. UPDATE PROVIDED, QUESTIONS ANSWERED.
--- NOTE | 2020-12-31 22:00 | NUR ---
in to get vitals, 2pa fww pivot from chair to bed, pt was inct of urine, changed attends, fresh ice water and warm blanket, no further needs
--- NOTE | 2020-12-31 22:11 | NUR ---
ASSESSMENT COMPLETE, SCHEDULED MEDS GIVEN. SEE EMAR. VSS, pt 2PA WITH FWW FROM CHAIR TO BED. INCONTINENT OF LARGE AMOUNT URINE, ANAYELI CARE DONE AND DRY ATTENDS IN PLACE. BED ALARM ON FOR SAFETY. IV SITE WNL, FLUSHES EASILY. NO FURTHER NEEDS, CALL LIGHT IN REACH.
--- NOTE | 2021-01-01 00:32 | NUR ---
pt RESTING QUIETLY IN BED WITH EYES CLOSED, RR EVEN AND UNLABORED. CALL LIGHT IN REACH. BED ALARM ON FOR SAFETY. NO DISTRESS OR SIGNS OF PAIN NOTED.
--- NOTE | 2021-01-01 03:00 | NUR ---
IN ROOM TO ROUND ON pt, pt IN BED RESTING QUIETLY. EYES CLOSED, RR EVEN AND UNLABORED. pt PREVIOUSLY LAYING SUPINE IN BED, ABLE TO REPSOITION SELF IN BED pt WAS FOUND LAYING ON HIS RIGHT SIDE AND FACING DOOR. INCONTINENT OF LARGE AMOUNT URINE, WITH HELP FROM JUAN BRANCH, ANAYELI CARE DONE AND pt BOOSTED IN BED. BILATERAL HIPS FLOATED. NEW ALLAEVYN PLACED TO POSTERIOR RIGHT CALF D/T CURRENT SKIN TEAR. APPROX 1CM IN LENGTH. NO FURTHER NEEDS VERBALIZED, CALL LIGHT IN REACH.
--- NOTE | 2021-01-01 07:00 | NUR ---
IN TO GET VITAL, PT INCT OF URINE, 2PA CHANGED, NO FURTHER NEEDS, BED ALARM RESET
--- NOTE | 2021-01-01 09:10 | NUR ---
pt sleeping soundly when nurse enters for assessment. miralx in oj. pt call light in reach.
--- NOTE | 2021-01-01 15:00 | NUR ---
pt trsf from to bed, attends changed - inc. stool. used fww with assist to bed.
--- NOTE | 2021-01-01 15:30 | NUR ---
2PA WITH FWW FROM CHAIR TO BED. PATIENT INCONT. OF STOOL AND URINE. VITALS AND I&OS CHARTED, CALL LIGHT IN REACH, NOOTHER NEEDS AT THIS TIME
--- NOTE | 2021-01-01 16:16 | NUR ---
pt watching tv - denies needs - wants to go home. explained plan for am labs and diruetics. coumadin given po - pt tollerated well.
--- NOTE | 2021-01-01 16:21 | NUR ---
pt with no new complaints - denies needs, alert, pleasant. up to ch with max assist. [employer] plan to dc mon when facility can take him at [facility]
--- NOTE | 2021-01-01 17:00 | NUR ---
pt amb to br with rn and textile science technician with fww, bm noted, back to for meal
--- NOTE | 2021-01-01 18:15 | NUR ---
PATIENT SITTING UP IN CHAIR EATING DINNER. CALL LIGHT IN REACH, NO OTHER NEEDS AT THIS TIME
--- NOTE | 2021-01-01 19:30 | NUR ---
PATIENT REPORT RECEIVED. PATIENT CURRENTLY SITTING UP IN THE BEDSIDE ARMCHAIR WATCHING TV. NO CARE NEEDS AT THIS TIME. CALL LIGHT IS IN REACH. PATIENT CAN BE SEEN FROM THE NURSES STATION DESK.
--- NOTE | 2021-01-01 21:35 | NUR ---
PATIENT CONTINUES TO WATCH TV IN THE BEDSIDE ARM CHAIR. PATIENT HAS NO CURRENT CARE NEEDS. CALL LIGHT IN REACH. PATIENT CAN BEE SEEN FROM THE NURSES STATION DESK.
--- NOTE | 2021-01-01 23:16 | NUR ---
PATIENT 2 PERSON MAX ASSIST AND FWW FROM BEDSIDE ARM CHAIR TO BED. NATALIYA HOGAN ASSISTING THIS RN. VS AND I+ O DONE. PATIENT VOIDED 150MLS IN URINAL, BUT ALSO HAD A LARGE AMOUNT OF INCONTINENT URINE IN ATTENDS AND A STOOL SMEAR. NEW ATTEND S IN PLACE AND ANAYELI CARE DONE. VS STABLE, BED ALARM IS ON, CALL LIGHT IS IN REACH. PATIENT'S ICE WATER REFILLED. PATIENT CAN BEE SEEN FROM THE NURSES STATION DESK.
--- NOTE | 2021-01-02 | NUR ---
IN TO PROVIDE PT WITH SOME BLANKETS, PT LIKE TO TALK ABOUT THE PAST, NO FURTHER NEEDS
--- NOTE | 2021-01-02 00:43 | NUR ---
PATIENT RESTING QUIETLY IN LOW FOWLERS POSITION, EYES CLOSED, RESPIRATIONS REGULAR AND EVEN, CALL LIGHT IN REACH. PATIENT CAN BE SEEN FROM THE NURSES STATION DESK.
--- NOTE | 2021-01-02 01:59 | NUR ---
PATIENT TURNED TO HIS RIGHT SIDE WITH ASSISTANCE FROM NATALIYA HOGAN. EDISON ASSISTING PATIENT WITH URINAL AND PATIENT HAD NO OTHER NEEDS AT THIS TIME.
--- NOTE | 2021-01-02 02:05 | NUR ---
IN TO ASST RN WITH TURN, ASST PT WITH URINAL, NO FURTHER NEEDS
--- NOTE | 2021-01-02 05:01 | NUR ---
PATIENT HAS SLEPT WELL WHEN NOT BEING TURNED OR ASKED ABOUT TOILETING OR OTHER NEEDS. PATIENT VOIDED PER URINAL X2 THIS SHIFT AND HAD 1 LARGE INCONTINENCE. PATIENT REMAINS A 2 PERSON MAX ASSIST WITH FWW TO TRANSFER. PATIENT CONTINUES ON SCHEDULED TURNS AND WAS JUST TURNED TO HIS BACK. PATIENT'S ATTENDS ARE DRY AND CLEAN AT THIS TIME. BED ALARM ON AND CALL LIGHT IS IN REACH.
--- NOTE | 2021-01-02 08:00 | NUR ---
REPORT RECEIVED. PT IN BED WITH EYES CLOSED. RESPIRAIOTNS EQUAL AND NONLABORED. BED ALARM IN PLACE. CALL LIGHT IN REACH.
--- NOTE | 2021-01-02 09:00 | NUR ---
PT ASSISTED TO CHAIR FOR BREAKFAST. DENIES PAIN OR NEEDS.
--- NOTE | 2021-01-02 09:36 | NUR ---
BEDBATH GIVING, PATIENT UP AND TO CHAIR, 2 PA WITH FWW. PATIENT AMBULATED WELL. EATING BREAKFAST, LINENS CHANGED. CALL LIGHT IN REACH
[2021-01-02] MEDS ORDERED: METOPROLOL TART25 MG PO (09:57)
[2021-01-02] MEDS ORDERED: TRAMADOL HCL50 MG PO (09:58)
[2021-01-02] MEDS ORDERED: TORSEMIDE20 MG PO (10:00)
--- NOTE | 2021-01-02 10:30 | NUR ---
ASSESSMENT COMPLETED. MEDICAITONS GIVEN. PT CONFUSED BUT COOPERATIVE. SITTING IN CHAIR. DENIES PAIN. ATE 10% OF BREAKFAST. CALL LIGHT IN REACH.
[2021-01-02] MEDS ORDERED: ZYLOPRIM100 MG PO (11:40)
--- NOTE | 2021-01-02 14:07 | NUR ---
PATIENT UP IN CHAIR, INCONTINENT OF URINE, NEW PAD IN BRIEF. LEGS ELEVATED, VITALS AND I&OS CHARTED, CALL LIGHT IN REACH
--- NOTE | 2021-01-02 15:20 | NUR ---
pt assisted 2 person back to bed. pt very [place] and needed cues to ambulated to bed. call light in reach. attends changed. deneis pain.
--- NOTE | 2021-01-02 17:14 | NUR ---
ASSISTED PHYSICAL THERAPY IN WALKING PT IN [place] WITH ONE RED HAT LINUX ENGINEER FOLLWOING BEHIND WITH WHEEL CHAIR. PT TOLERATED WELL. ASSISTED TO CHAIR ONCE DONE FOR DINNER.
--- NOTE | 2021-01-02 19:04 | NUR ---
ATTENDS CHANGED FOR LARGE INCONT VOID. 2 PERSON ASSIST BACK TO BED. CALL LIGHT IN REACH.
--- NOTE | 2021-01-02 19:20 | NUR ---
PATIENT IN BED, VITALS AND I&OS CHARTED. DENTURES SOAKING IN BATHROOM. FRESH ICE WATER PROVIDED. BED ALARM ON FOR SAFETY. CALL LIGHT WITHIN REACH
--- NOTE | 2021-01-02 19:47 | NUR ---
PATIENT RESTING QUIETLY SUPINE IN ROOM. EYES CLOSED AND RESPIRATIONS REGULAR AND EVEN. CALL LIGHT IN REACH, BED ALARM ON, PATIENT CAN BE SEEN FROM THE NURSES STATION.
--- NOTE | 2021-01-02 21:00 | NUR ---
PATIENT RESTING QUIETLY ON HIS RIGHT SIDE, EYES CLOSED, RESPIRATIONS REGULAR AND EVEN, BED ALARM ON, CALL LIGHT IN REACH AND PATIENT CAN BE SEEN FROM THE NURSES DESK.
--- NOTE | 2021-01-02 22:50 | NUR ---
PATIENT ATTENDS CHANGED DUE TO INCONTINENCE OF URINE AND A FECAL SMEAR. PATIENT REPOSITIONED IN BED WITH ASSISTANCE FROM NATALIYA ADKINS. FRESH WATER GIVEN, PATIENT TOOK HIS PM PILLS WITHOUT DIFFICULTY, AND A WARM BLANKET GIVEN. CALL LIGHT IS IN REACH, BED ALARM ON, AND PATIENT CAN BE SEEN FROM THE NURSES STATION.
--- NOTE | 2021-01-02 22:50 | NUR ---
2 PA. PATIENT'S INCONTINENT ATTENDS CHANGED. PATIENT REPOSITIONED. V/S AND I&O'S DONE. WARM BLANKET PROVIDED. BED ALARM ON FOR SAFETY.
--- NOTE | 2021-01-03 00:54 | NUR ---
PATIENT HAS BEEN RESTING QUIETLY WITH EYES CLOSED. PATIENT REPOSITION TO HIS LEFT SIDE WITH HELP FROM JED AN. CALL LIGHT IS IN REACH, BED ALARM ON, PATIENT CAN BE SEEN FROM THE NURSES STATION. PATIENT'S ATTENDS IS CLEAN AND DRY.
--- NOTE | 2021-01-03 02:55 | NUR ---
PATIENT REPOSITIONED TO HIS RIGHT SIDE. PATIENT'S ATTENDS CLEAN AND DRY. PATIENT HAS NO OTHER CARE NEEDS AT THIS TIME. CALL LIGHT IN REACH AND PATIENT CAN BE SEEN FROM THE NURSES STATION.
--- NOTE | 2021-01-03 05:10 | NUR ---
PATIENT'S ATTENDS CHANGED FROM URINARY INCONTINENCE, AND PATIENT REPOSITIONED WITH HELP OF JED AN. PATIENT'S DENTURES PUT IN AND FRESH WATER GIVEN. VS STABLE AND CALL LIGHT IN REACH. BED ALARM REMAINS ON AND PATIENT CAN BE SEEN FROM THE NURSES STATION.
--- NOTE | 2021-01-03 07:05 | NUR ---
BEDSIDE HANDOFF REPORT RECEIVED FROM BANQUET DIRECTOR RN. PT SLEEPING, LEFT UNDISTURBED.
--- NOTE | 2021-01-03 08:00 | NUR ---
Textjayden Hopkins at [facility], and received return text pt may return today. Orders, passr, med list, dc summary faxed. WC van scheduled for 11:00 am.
--- NOTE | 2021-01-03 08:50 | NUR ---
BOTH NARES SWABBED FOR COVID-19 WITHOUT COMPLICATION. SAMPLE TAKEN TO [facility] FOR RAPID TESTING.
--- NOTE | 2021-01-03 09:00 | NUR ---
PT RESTING IN BED. PT ON ROOM AIR, LUNG SOUNDS CLEAR. PT ORIENTED TO SELF ONLY, REIORIENTED. PT DENIES PAIN. PT TOLERATING BREAKFAST, BOWEL TONES ACTIVE. PT WITH EDEMA TO BLE, 1+, CMS INTACT. WITHOUT IV ACCESS. MORNING MEDICATIONS ADMINISTERED PER EMAR. PT DENIES OTHER NEEDS AT THIS TIME.
--- NOTE | 2021-01-03 09:30 | NUR ---
Called and updated daughter, Leonor, pt will return to [facility] today at 11:00. She denies needs or questions and is pleased with this.
[2021-01-03] MEDS ORDERED: LYRICA50 MG PO (09:37)
--- NOTE | 2021-01-03 09:58 | NUR ---
PATIENT HAD INC. ANAYELI CARE DONE AND NEW ATTENDS IN PLACE. PATIENT THEN HAD TO GO TO BATHROOM AGAIN. THIS PULMONARY DISEASE SPECIALIST AND RN GOT PATIENT UP TO BSC, 2PA. LINENS CHANGED. ANAYELI CARE DONE. PATIENT NOW BACK TO BED, 2PA. PATIENT REPOSITIONED ONTO RIGHT SIDE. CALL LIGHT IN REACH. FRESH WATER GIVEN. NO FURTHER NEEDS AT THIS TIME.
== END 2021-01-03 11:00 | disposition home or self-care (01) | DRG 641 ==
LOC: ED 17:13 → MS 17:15
PROVIDERS: ADMIT Student in an Organized Health Care Education/Training Program; ATTEND Student in an Organized Health Care Education/Training Program
DX: E86.0 Dehydration (principal); N17.9 Acute kidney failure, unspecified; I13.0 Hypertensive heart and chronic kidney disease with heart failure and stage 1 through stage 4 chronic kidney disease, or unspecified chronic kidney disease; I50.22 Chronic systolic (congestive) heart failure; I48.19 Other persistent atrial fibrillation; Z20.822 Contact with and (suspected) exposure to COVID-19; N18.9 Chronic kidney disease, unspecified; E87.5 Hyperkalemia; D63.8 Anemia in other chronic diseases classified elsewhere; E79.0 Hyperuricemia without signs of inflammatory arthritis and tophaceous disease; G60.9 Hereditary and idiopathic neuropathy, unspecified; Z95.1 Presence of aortocoronary bypass graft; Z95.2 Presence of prosthetic heart valve; Z66 Do not resuscitate; Z88.5 Allergy status to narcotic agent; Z88.6 Allergy status to analgesic agent; Z88.8 Allergy status to other drugs, medicaments and biological substances; Z88.2 Allergy status to sulfonamides; Z88.1 Allergy status to other antibiotic agents; Z79.899 Other long term (current) drug therapy; Z79.01 Long term (current) use of anticoagulants
CPT/HCPCS: 36415; 80048; 80053; 83735; 83880; 85018; 85025; 85610; 85730; 86850; 86900; 86901; 86920; 93005; 93010; 97110; 97116; 97162; 97166; 97530; C9803; J7040; J7121; P9016; U0003